=== PATIENT | female | born 1940 | race Caucasian/White ===

== ENCOUNTER 2016-05-07 16:19 | Emergency (ER) | payer MEDICARE, OTHER, MEDICAID ==
--- NOTE | 2016-05-07 17:05 | ER Document Report ---
ED Medical Screen (RME) - General Stated Complaint: SCRATCH ON ARM Notes: 75 yo female c/o dog scratch to left arm 2 days ago. + redness and pain. + skin tear to left forearm. mild erythema. no lymphangitis. no fever TRAVEL OUTSIDE OF THE [place] IN LAST 30 DAYS: No - Related Data Allergies/Adverse Reactions: No Known Allergies Allergy (Verified 05/07/16 17:02) Past Medical History - Past Medical History Cardiac Medical History: Reports: Hx Hypertension Denies: Hx Atrial Fibrillation, Hx Congestive Heart Failure, Hx Coronary Artery Disease, Hx Heart Attack, Hx Hypercholesterolemia, Hx Peripheral Vascular Disease, Hx Heart Murmur Pulmonary Medical History: Denies: Hx Asthma, Hx Bronchitis, Hx COPD, Hx Pneumonia, Hx Tuberculosis Neurological Medical History: Denies: Hx Cerebrovascular Accident - X 2 DUE TO NEUROLOGIST - , Hx Seizures Endocrine Medical History: Reports: Hx Hypothyroidism. Denies: Hx Graves' Disease, Hx Hyperthyroidism GI Medical History: Reports: Hx Gastroesophageal Reflux Disease. Denies: Hx Crohn's Disease, Hx Hiatal Hernia, Hx Irritable Bowel, Hx Liver Failure, Hx Ulcer Musculoskeltal Medical History: Denies Hx Arthritis, Denies Hx Multiple Sclerosis Psychiatric Medical History: Reports: Hx Anxiety, Hx Dementia, Hx Depression Denies: Hx Bipolar Disorder, Hx Schizophrenia Past Surgical History: Reports: Hx Cardiac Surgery - stents, Hx Cholecystectomy. Denies: Hx Appendectomy, Hx Bowel Surgery, Hx Section , Hx Colostomy, Hx Coronary Artery Bypass Graft, Hx Gastric Bypass Surgery, Hx Herniorrhaphy, Hx Hysterectomy, Hx Mastectomy, Hx Pacemaker, Hx Tonsillectomy, Hx Tubal Ligation - Immunizations Immunizations up to date: Yes Hx Diphtheria, Pertussis, Tetanus Vaccination: Yes Physical Exam - Vital signs Vitals: Temp Pulse Resp BP Pulse Ox 98.0 F 76 16 158/81 H 96 05/07/16 16:58 05/07/16 16:58 05/07/16 16:58 05/07/16 16:58 05/07/16 16:58 Course - Vital Signs Vital signs: Temp Pulse Resp BP Pulse Ox 98.0 F 76 16 158/81 H 96 05/07/16 16:58 05/07/16 16:58 05/07/16 16:58 05/07/16 16:58 05/07/16 16:58
[2016-05-07] MEDS ORDERED: AMOXICILLIN TR/POT CLAVULANATE 500-125 MG TAB PO ONE ×3 (19:34→19:42)
--- NOTE | 2016-05-07 19:53 | ER Document Report ---
ED Skin Rash/Insect Bite/Abscs - General Chief Complaint: Skin Problem Stated Complaint: SCRATCH ON ARM Notes: Patient sustained a skin tear of the left forearm caused by the patient's own dog who accidentally scratched her left arm 2 days ago. Patient is concerned about infection because redness developed around the wound today and it's had a little bit of drainage area she's not had any fever, however. TRAVEL OUTSIDE OF THE [place] IN LAST 30 DAYS: No - Related Data Allergies/Adverse Reactions: No Known Allergies Allergy (Verified 05/07/16 17:02) Past Medical History - Social History Smoking Status: Never Smoker Chew tobacco use (# tins/day): No Frequency of alcohol use: None Drug Abuse: None Family History: Reviewed & Not Pertinent, CVA, Hyperlipidemia, Hypertension, Malignancy, Thyroid Disfunction Patient has suicidal ideation: No Patient has homicidal ideation: No - Past Medical History Cardiac Medical History: Reports: Hx Coronary Artery Disease, Hx Hypertension Endocrine Medical History: Reports: Hx Hypothyroidism GI Medical History: Reports: Hx Gastroesophageal Reflux Disease Psychiatric Medical History: Reports: Hx Anxiety, Hx Dementia, Hx Depression Past Surgical History: Reports: Hx Cardiac Surgery - stents, Hx Cholecystectomy - Immunizations Immunizations up to date: Yes Hx Diphtheria, Pertussis, Tetanus Vaccination: Yes Hx Pneumococcal Vaccination: 03/30/11 Review of Systems - Review of Systems Notes: REVIEW OF SYSTEMS: CONSTITUTIONAL : Denies fever. EENT: Denies eye, ear, nose or mouth or throat pain or other symptoms. CARDIOVASCULAR: Denies chest pain. RESPIRATORY: Denies cough, chest congestion, or shortness of breath. GASTROINTESTINAL: Denies abdominal pain or nausea, vomiting, or diarrhea. GENITOURINARY: Denies difficulty or painful urinating, urinary frequency, blood in urine. MUSCULOSKELETAL: Denies back or neck pain. Denies joint pain or swelling. SKIN: See history of present illness. NEUROLOGICAL: Denies LOC or altered mental status. Patient seems forgetful and incorrectly answers questions and is corrected by her , suggesting altered mental status, such as dementia. Denies headache. Denies sensory loss or motor deficits. PSYCHIATRIC: Denies anxiety or stress. Denies depression. ALL OTHER SYSTEMS REVIEWED AND NEGATIVE. Physical Exam - Vital signs Vitals: Temp Pulse Resp BP Pulse Ox 98.0 F 76 16 158/81 H 96 05/07/16 16:58 05/07/16 16:58 05/07/16 16:58 05/07/16 16:58 05/07/16 16:58 Interpretation: Normal - Notes Notes: PHYSICAL EXAMINATION: GENERAL: Well-appearing, in no acute distress. Afebrile. HEAD: Atraumatic, normocephalic. NECK: Normal range of motion, supple. LUNGS: Breath sounds clear and equal bilaterally. HEART: Regular rate and rhythm without murmurs. ABDOMEN: Soft, nontender. No guarding or rebound. BACK: No tenderness throughout entire back. EXTREMITIES: Normal range of motion without pain. SKIN: Warm, dry, no rashes. Patient has a V-shaped superficial skin tear laceration of the distal one third of the left forearm. There is some very mild erythema around this wound. There is perhaps some moist drainage which we will attempt to culture. Course - Vital Signs Vital signs: Temp Pulse Resp BP Pulse Ox 98.0 F 76 16 158/81 H 96 05/07/16 16:58 05/07/16 16:58 05/07/16 16:58 05/07/16 16:58 05/07/16 16:58 Discharge - Discharge Clinical Impression: Dog scratch, Cellulitis of left arm Condition: Stable Disposition: HOME, SELF-CARE Additional Instructions: CELLULITIS: You have an infection of your skin and underlying soft tissues called cellulitis. This is due to bacteria, which can enter through any break in the skin, or even through an irritated hair follicle. Untreated, cellulitis will usually worsen. Antibiotics are required. Usually, warm packs or warm soaks, and elevation of the infected area are recommended. You should start getting better within 24 to 36 hours. Most infections respond quickly to the right medication. Follow-up care is important, however, to check for abscess (boil) formation, unsuspected foreign body, or resistant infection. If you develop fever, chills, or if the area of infection is becoming rapidly more swollen or painful, call the doctor at once. ANTIBIOTIC THERAPY: You have been given an antibiotic prescription. It's important that you take all the medication, unless instructed otherwise by your physician. Failure to complete the entire course can result in relapse of your condition. Common side effects of antibiotics include nausea, intestinal cramping, or diarrhea. Women may develop vaginal yeast infections, and babies can get yeast (thrush) in the mouth following the use of antibiotics. Contact your physician if you develop significant side effects from this medication. Allergy to this antibiotic can result in hives, wheezing, faintness, or itching. If symptoms of allergy occur, stop the medication and call the doctor. Augmentin Augmentin is a mixture of amoxicillin and clavulanate. Amoxicillin is a member of the penicillin family. It covers the germs likely to cause ear, bronchial, and urinary infections better than plain penicillin. The addition of clavulanate allows it to cover staph infections of the skin, as well as resistant cases of ear and sinus infections. Your physician has chosen Augmentin for you because of the special nature of your situation. Augmentin is best taken with meals. Nausea after taking the medication is rare, but can occur. Diarrhea can occur, particularly in small children. Vaginal yeast infections, and oral thrush in infants are also common. Contact your physician if these problems occur. Allergy to penicillins is common. If you have had an allergic reaction to any drug of the penicillin family, you should never take any other penicillin. Notify your doctor at once if you develop hives, shortness of breath, swelling, or faintness. Take the antibiotics as prescribed. Clean the dog scratch wound on your left forearm with gentle soap and water 3 times a day, then leave the wound open to the air to dry out or wear a dry Band- Aid. Do not apply any ointments or creams to the skin tear. FOLLOW-UP CARE: If you have been referred to a physician for follow-up care, call the physician s office for an appointment as you were instructed or within the next two days. If you experience worsening or a significant change in your symptoms, notify the physician immediately or return to the Emergency Department at any time for re-evaluation. Prescriptions: Amox Tr/Potassium Clavulanate [Augmentin 875-125 Tablet] 1 tab PO BID 7 Days
[2016-05-07 20:08] VITALS: BP 130/88
== END 2016-05-07 20:39 | disposition home or self-care (01) ==
LOC: ER 16:19
DX: S50.812A Abrasion of left forearm, initial encounter (principal); L03.114 Cellulitis of left upper limb; W54.8XXA Other contact with dog, initial encounter; I25.10 Atherosclerotic heart disease of native coronary artery without angina pectoris; I10 Essential (primary) hypertension; Z98.61 Coronary angioplasty status; S51.812A Laceration without foreign body of left forearm, initial encounter
CPT/HCPCS: 99282; 87070; 87205; 87077; 87186; A9270

== ENCOUNTER → 2016-05-21 | Outpatient (CLI) | payer MEDICARE, OTHER, MEDICAID | LOC: RAD 11:20 | PROVIDERS: ATTEND Specialist | DX: C50.411 Malignant neoplasm of upper-outer quadrant of right female breast (principal); R07.9 Chest pain, unspecified | CPT/HCPCS: 71020 ==

== ENCOUNTER 2016-07-15 01:28 | Emergency (ER) | payer MEDICARE, OTHER, MEDICAID ==
--- NOTE | 2016-07-15 01:42 | ER Document Report ---
ED General - General Chief Complaint: Nausea/Vomiting Stated Complaint: NAUSEA VOMITING DIFFICULTY BREATHING Notes: Patient is a 75-year-old female who presents with complaint of onset of difficulty breathing or nausea. She does have some right-sided abdominal pain. No chest pain. No fevers. No recent infections. She denies history of these symptoms in the past. She is a former smoker. No diarrhea. No other complaints at this time. TRAVEL OUTSIDE OF THE [place] IN LAST 30 DAYS: No - Related Data Allergies/Adverse Reactions: No Known Allergies Allergy (Verified 05/07/16 17:02) Past Medical History - Social History Smoking Status: Former Smoker Frequency of alcohol use: None Drug Abuse: None Family History: Reviewed & Not Pertinent, CVA, Hyperlipidemia, Hypertension, Malignancy, Thyroid Disfunction - Past Medical History Cardiac Medical History: Reports: Hx Coronary Artery Disease, Hx Hypertension Denies: Hx Atrial Fibrillation, Hx Congestive Heart Failure, Hx Heart Attack , Hx Hypercholesterolemia, Hx Peripheral Vascular Disease, Hx Heart Murmur Pulmonary Medical History: Denies: Hx Asthma, Hx Bronchitis, Hx COPD, Hx Pneumonia, Hx Tuberculosis Neurological Medical History: Denies: Hx Cerebrovascular Accident - X 2 DUE TO NEUROLOGIST - , Hx Seizures Endocrine Medical History: Reports: Hx Hypothyroidism. Denies: Hx Graves' Disease, Hx Hyperthyroidism Renal/ Medical History: Denies: Hx Peritoneal Dialysis GI Medical History: Reports: Hx Gastroesophageal Reflux Disease. Denies: Hx Crohn's Disease, Hx Hiatal Hernia, Hx Irritable Bowel, Hx Liver Failure, Hx Ulcer Musculoskeltal Medical History: Denies Hx Arthritis, Denies Hx Multiple Sclerosis Psychiatric Medical History: Reports: Hx Anxiety, Hx Dementia, Hx Depression Denies: Hx Bipolar Disorder, Hx Schizophrenia Past Surgical History: Reports: Hx Cardiac Surgery - stents, Hx Cholecystectomy. Denies: Hx Appendectomy, Hx Bowel Surgery, Hx Section , Hx Colostomy, Hx Coronary Artery Bypass Graft, Hx Gastric Bypass Surgery, Hx Herniorrhaphy, Hx Hysterectomy, Hx Mastectomy, Hx Pacemaker, Hx Tonsillectomy, Hx Tubal Ligation - Immunizations Immunizations up to date: Yes Hx Diphtheria, Pertussis, Tetanus Vaccination: Yes Hx Pneumococcal Vaccination: 03/30/11 Review of Systems - Review of Systems Notes: My Normal Review Basic REVIEW OF SYSTEMS: CONSTITUTIONAL : Denies fever, chills, or sweats. Denies recent illness. EENT: Denies eye, ear, throat, or mouth pain or symptoms. Denies nasal or sinus congestion. CARDIOVASCULAR: Denies chest pain. RESPIRATORY: Some difficulty breathing. GASTROINTESTINAL: Mild right-sided abdominal pain. Nausea. Denies constipation. Last BM: GENITOURINARY: Denies difficulty urinating, painful urination, burning, frequency, or blood in urine. FEMALE GENITOURINARY: Denies vaginal bleeding, abnormal or irregular periods. MUSCULOSKELETAL: Denies neck or back pain or joint pain or swelling. SKIN: Denies rash or skin lesions. NEUROLOGICAL: Denies altered mental status or loss of consciousness. Denies headache. Denies weakness or paralysis or loss of use of either side. Denies problems with gait or speech. Denies sensory or motor loss. ALL OTHER SYSTEMS REVIEWED AND NEGATIVE. Physical Exam - Vital signs Vitals: Temp 97.4 F 07/15/16 01:28 - Notes Notes: General Appearance: Well nourished, alert, cooperative, mild acute distress, no obvious discomfort. Vitals: reviewed, See vital signs table. Head: no swelling or tenderness to the head Eyes: PERRL, EOMI, Conjuctiva clear Mouth: No decreasd moisture Neck: Supple, no neck tenderness, No thyromegaly Lungs: No wheezing, No rales, No rhonci, No accessory muscle use, good air exchange bilaterally. Heart: Normal rate, Regular rythm, No murmur, no rub Abdomen: Normal BS, soft, No rigidity, mild right upper quadrant abdominal tenderness to palpation, No guarding, no rebound, no abdominal masses, no organomegaly Extremities: strength 5/5 in all extremities, good pulses in all extremities, no swelling or tenderness in the extremities, no edema. Skin: warm, dry, appropriate color, no rash Neuro: speech clear, oriented x 3, normal affect, responds appropriately to questions. Course - Re-evaluation Re-evalutation: 07/15/16 03:25 On reevaluation patient is feeling much improved. Her nausea is now gone. She does not feel short of breath. Her pain is decreased in her abdomen. She still has some reproducible pain on palpation of the abdomen is more mild and diffuse now. Being that she has a leukocytosis so will obtain a CT scan to make sure there's no evidence of acute concerning pathology of her abdomen. - Vital Signs Vital signs: Temp Pulse Resp BP Pulse Ox 97.4 F 17 150/72 H 100 07/15/16 01:28 07/15/16 06:01 07/15/16 06:01 07/15/16 06:01 - Laboratory Result Diagrams: 07/15/16 02:10 07/15/16 02:10 Laboratory results interpreted by me: 07/15/16 07/15/16 07/15/16 02:10 02:10 05:35 WBC 16.1 H RBC 3.39 L Hgb 11.3 L Hct 33.5 L MCV 99 H RDW 16.1 H Seg Neutrophils % 78.9 H Absolute Neutrophils 12.7 H Sodium 146.3 H BUN 21 H Est GFR ( Amer) 59 L Est GFR (Non-Af Amer) 49 L Glucose 128 H Alkaline Phosphatase 147 H Ur Leukocyte Esterase SMALL H - EKG Interpretation by Me Additional EKG results interpreted by me: 07/15/16 02:18 EKG is reviewed and interpreted by me. EKG shows normal sinus rhythm with rate of [address] segment elevation or depression. No ischemic T wave inversions. RI level, QRS duration, QTC intervals are within normal range. Old EKG for comparison is from 11/14/2015. - Transfer of Care Notes: 07/15/16 06:25 She continues look and feel well. She continues to be symptom free at this time. She does feel much improved after she had received a Zofran. At this time I feel she is safe to be discharged home. She never had any chest pain. Her EKG and cardiac enzymes are negative. She did have some abdominal pain but this is resolved. Her CT scan of her abdomen was negative. Urinalysis negative. She no longer feels nauseous. Her vital signs are normal. I feel she is safe to be discharged home. I strongly encourage her to return to ER immediately if she has recurrent pain, any fevers, any vomiting, or if she has any chest pain whatsoever. Patient agrees with plan and will be discharged home. Dictation of this chart was performed using voice recognition software; therefore, there may be some unintended grammatical errors. Discharge - Discharge Clinical Impression: Nausea Abdominal pain Qualifiers: Abdominal location: generalized Qualified Code(s): R10.84 - Generalized abdominal pain Condition: Good Disposition: HOME, SELF-CARE Additional Instructions: ABDOMINAL PAIN: There are many causes of abdominal pain. Pain can mean a serious problem requiring surgery (such as appendicitis). It can also be an innocent problem that goes away on its own (such as a viral infection). Often, time must pass to determine the cause of pain. The physician does not feel that hospitalization is necessary, at present. Things may change within the next 24 hours. Call the doctor or come back for re- examination if any problems occur, such as: (1) Pain that becomes more severe, steady, or becomes concentrated in one specific area. Also, pain that is more severe with movement or coughing. (2) Vomiting that persists or becomes more frequent. (3) Blood in the vomitus, urine, or bowel movements. Blood in the stool may have a tarry or black appearance. (4) Shaking chills or fever greater than 100 degrees F. (5) The abdomen becomes more distended or swollen. (6) Bowel movements cease. (7) Failure to improve as expected. NORMAL EXAM AND WORKUP: At this time, your examination and workup show no significant abnormality. No significant abnormal physical findings are noted. All laboratory, EKG, and imaging (x-ray, CT scans) studies that were ordered show no significant abnormality. Although your examination and all studies that were ordered showed no significant abnormal finding, there are no examinations and no studies that are 100% accurate. There is always the possibility that some abnormality could exist and not be detected with physical examination or within the limits and capabilities of laboratory and other studies. You should return or follow up as you were instructed on your visit today for further evaluation if your symptoms do not resolve. ANTINAUSEA MEDICATION: You have been given a medication to suppress nausea and vomiting. This type of medication can be given as a shot, pill, or suppository. It will usually last for many hours. Pills and shots usually last six to eight hours, suppositories last about 12 hours. For the typical illness, only one or two doses of the medication may be necessary. Mild lightheadedness may occur. This type of medicine can cause drowsiness. Do not drive or operate dangerous machinery while under its influence. Do not mix with alcohol. See your doctor at once if you have muscle spasms or tightness, or uncontrollable motions (particularly of the neck, mouth, or jaw). Persistent vomiting or severe lightheadedness should also be evaluated by the physician. FOLLOW-UP CARE: If you have been referred to a physician for follow-up care, call the physician s office for an appointment as you were instructed or within the next two days. If you experience worsening or a significant change in your symptoms, notify the physician immediately or return to the Emergency Department at any time for re-evaluation. FOLLOW-UP CARE: Please follow-up with your doctor in 1-2 days for close reevaluation. Please have a low threshold to return to ER if you have any chest pain, any difficulty breathing, recurrent vomiting, worsening abdominal pain. Also return if you have any fevers or any concerns that you are worsening in anyway. Prescriptions: Ondansetron [Zofran Odt 4 mg Tablet] 1 tab PO Q4H PRN #10 tab.rapdis PRN Reason: For Nausea/Vomiting Referrals: JANESSA ALVARADO MD [Primary Care Provider] - 07/17/16
[2016-07-15 02:26] LABS: ABSOLUTE BASOPHILS # (AUTO) 0.1 10^3/uL (0.0-0.2); ABSOLUTE EOSINOPHILS # (AUTO) 0.3 10^3/uL (0.0-0.6); ABSOLUTE LYMPHOCYTES (AUTO) 2.2 10^3/uL (0.5-4.7); ABSOLUTE MONOCYTES (AUTO) 0.8 10^3/uL (0.1-1.4); ABSOLUTE NEUT (AUTO) 12.7 10^3/uL (1.7-8.2); BASOPHILS % (AUTO) 0.6 % (0-2); HEMATOCRIT 33.5 % (36.0-47.0); HEMOGLOBIN 11.3 g/dL (12.0-15.5); HGB HCT DIFFERENCE 0.4; LYMPHOCYTES % (AUTO) 13.7 % (13-45); MEAN CORPUSCULAR HEMOGLOBIN 33.4 pg (27.0-33.4); MEAN CORPUSCULAR HGB CONC 33.8 g/dL (32.0-36.0); MEAN CORPUSCULAR VOLUME 99 fl (80-97); MONOCYTES % (AUTO) 4.8 % (3-13); RED BLOOD COUNT 3.39 10^6/uL (3.72-5.28); RED CELL DISTRIBUTION WIDTH 16.1 % (11.5-14.0); SEGMENTED NEUTROPHILS % (AUTO) 78.9 % (42-78); WHITE BLOOD COUNT 16.1 10^3/uL (4.0-10.5)
[2016-07-15 02:38] LABS: ALANINE AMINOTRANSFERASE 18 U/L (9-52); ALBUMIN 4.1 g/dL (3.5-5.0); ALKALINE PHOSPHATASE 147 U/L (38-126); ANION GAP 16 (5-19); ASPARTATE AMINO TRANSFERASE 22 U/L (14-36); BILIRUBIN,DIRECT 0.4 mg/dL (0.0-0.4); BILIRUBIN,TOTAL 0.7 mg/dL (0.2-1.3); BLOOD UREA NITROGEN 21 mg/dL (7-20); CALCIUM 9.1 mg/dL (8.4-10.2); CARBON DIOXIDE 23 mmol/L (22-30); CHLORIDE 107 mmol/L (98-107); CREATINE KINASE 72 U/L (30-135); GLUCOSE 128 mg/dL (75-110); LIPASE 240.1 U/L (23-300); POTASSIUM 4.8 mmol/L (3.6-5.0); SODIUM 146.3 mmol/L (137-145); TOTAL PROTEIN 6.9 g/dL (6.3-8.2)
[2016-07-15 02:50] LABS: CREATINE KINASE MB 0.36 ng/mL (<4.55)
[2016-07-15 02:58] LABS: TROPONIN I < 0.012 ng/mL
[2016-07-15] MEDS ORDERED: NORMAL SALINE 1000 ML 1,000 ML IV ONE (04:34)
[2016-07-15 06:08] LABS: APPEARANCE,URINE SLIGHTLY-CLOUDY; BILIRUBIN,URINE NEGATIVE (NEGATIVE); GLUCOSE, URINE NEGATIVE (NEGATIVE); KETONES,URINE NEGATIVE (NEGATIVE); LEUKOCYTE ESTERASE,URINE SMALL (NEGATIVE); NITRITE,URINE NEGATIVE (NEGATIVE); PROTEIN,URINE NEGATIVE (NEGATIVE); URINE SPECIFIC GRAVITY 1.038; UROBILINOGEN,URINE NEGATIVE mg/dL (<2.0)
[2016-07-15 06:32] VITALS: BP 151/84
--- NOTE | 2016-07-15 13:25 | EKG REPORT ---
SEVERITY:- NORMAL ECG - SINUS RHYTHM : Confirmed by: Angelina Marinelli MD 15-Jul-2016 13:24:56
== END 2016-07-15 06:40 | disposition home or self-care (01) ==
LOC: ER 01:28
DX: R11.2 Nausea with vomiting, unspecified (principal); R10.84 Generalized abdominal pain; R06.00 Dyspnea, unspecified; D72.829 Elevated white blood cell count, unspecified; I25.10 Atherosclerotic heart disease of native coronary artery without angina pectoris; I10 Essential (primary) hypertension; Z98.61 Coronary angioplasty status; Z90.49 Acquired absence of other specified parts of digestive tract; Z87.19 Personal history of other diseases of the digestive system; Z87.891 Personal history of nicotine dependence
CPT/HCPCS: 93005; 99284; 51701; 36415; 82553; 82550; 83690; 85025; 80053; 81001; 84484; 71010; 74177; 93010; J7030

== ENCOUNTER 2016-07-21 23:19 | Emergency (ER) | payer MEDICARE, OTHER, MEDICAID ==
--- NOTE | 2016-07-22 04:54 | ER Document Report ---
HPI - HPI Patient complains to provider of: anxiety Pain Level: 1 Context: Patient is a 76 year old female who presents to the ED with her son. He states that she lives in a assisted and he was called saying that they were sending her to the ED for abdominal pain. He states she was recently reevaluated here for abdominal pain and was diagnosed abdominal aorta dilation and is been due to follow up with community providers. At this time the son believes that her complaint tonight is due to anxiety. Review of her medical records from the facility showed that she received Klonopin and about 9:30 he was safe to call at about 10:15. At this time patient states that she has no complaints. Both the son and the patient refusing any further workup at this time and would like to be discharged home. She states that her abdominal pain is no more than her baseline and she is comfortable. She denies any thoughts of harming herself or others. She is content with her medications as prescribed for anxiety. States she follows with Dr. Baker for anxiety REVIEW OF SYSTEMS: CONSTITUTIONAL : Denies fever, chills, or sweats. Denies recent illness. EENT: Denies eye, ear, throat, or mouth pain or symptoms. Denies nasal or sinus congestion or discharge. Denies throat, tongue, or mouth swelling or difficulty swallowing. CARDIOVASCULAR: Denies chest pain. Denies palpitations or racing or irregular heart beat. Denies ankle edema. RESPIRATORY: Denies cough, cold, or chest congestion. Denies shortness of breath, difficulty breathing, or wheezing. GASTROINTESTINAL: Denies abdominal pain or distention. Denies nausea, vomiting , or diarrhea. Denies blood in vomitus, stools, or per rectum. Denies black, tarry stools. Denies constipation. GENITOURINARY: Denies difficulty urinating, painful urination, burning, frequency, blood in urine, or discharge. FEMALE GENITOURINARY: Denies vaginal bleeding, heavy or abnormal periods, irregular periods. Denies vaginal discharge or odor. MUSCULOSKELETAL: Denies any muscle spasms, difficulty walking, extremity pain SKIN: Denies rash, lesions or sores. HEMATOLOGIC : Denies easy bruising or bleeding. LYMPHATIC: Denies swollen, enlarged glands. NEUROLOGICAL: Denies confusion or altered mental status. Denies passing out or loss of consciousness. Denies dizziness or lightheadedness. Denies headache. Denies weakness or paralysis or loss of use of either side. Denies problems with gait or speech. Denies sensory loss, numbness, or tingling. Denies seizures. PSYCHIATRIC: Denies anxiety or stress. Denies depression, suicidal ideation, or homicidal ideation. ALL OTHER SYSTEMS REVIEWED AND NEGATIVE. Dictation was performed using [employer] voice recognition software - REPRODUCTIVE Reproductive: DENIES: : - DERM Skin Color: Normal, [place] Past Medical History - Social History Smoking Status: Never Smoker Family History: Reviewed & Not Pertinent, CVA, Hyperlipidemia, Hypertension, Malignancy, Thyroid Disfunction - Past Medical History Cardiac Medical History: Reports: Hx Coronary Artery Disease, Hx Hypertension Denies: Hx Atrial Fibrillation, Hx Congestive Heart Failure, Hx Heart Attack , Hx Hypercholesterolemia, Hx Peripheral Vascular Disease, Hx Heart Murmur Pulmonary Medical History: Denies: Hx Asthma, Hx Bronchitis, Hx COPD, Hx Pneumonia, Hx Tuberculosis Neurological Medical History: Denies: Hx Cerebrovascular Accident - X 2 DUE TO NEUROLOGIST - , Hx Seizures Endocrine Medical History: Reports: Hx Hypothyroidism. Denies: Hx Graves' Disease, Hx Hyperthyroidism Renal/ Medical History: Denies: Hx Peritoneal Dialysis GI Medical History: Reports: Hx Gastroesophageal Reflux Disease. Denies: Hx Crohn's Disease, Hx Hiatal Hernia, Hx Irritable Bowel, Hx Liver Failure, Hx Ulcer Musculoskeltal Medical History: Denies Hx Arthritis, Denies Hx Multiple Sclerosis Psychiatric Medical History: Reports: Hx Anxiety, Hx Dementia, Hx Depression Denies: Hx Bipolar Disorder, Hx Schizophrenia Past Surgical History: Reports: Hx Cardiac Surgery - stents, Hx Cholecystectomy. Denies: Hx Appendectomy, Hx Bowel Surgery, Hx Section , Hx Colostomy, Hx Coronary Artery Bypass Graft, Hx Gastric Bypass Surgery, Hx Herniorrhaphy, Hx Hysterectomy, Hx Mastectomy, Hx Pacemaker, Hx Tonsillectomy, Hx Tubal Ligation - Immunizations Immunizations up to date: Yes Hx Diphtheria, Pertussis, Tetanus Vaccination: Yes Hx Pneumococcal Vaccination: 03/30/11 Vertical Provider Document - CONSTITUTIONAL Agree With Documented VS: Yes Exam Limitations: No Limitations General Appearance: WD/WN, No Apparent Distress Notes: PHYSICAL EXAM GENERAL: Alert, interacts well. HEAD: Normocephalic, atraumatic. EYES: Pupils equal, round, and reactive to light. Extraocular movements intact. ENT: Oral mucosa moist, tongue midline. NECK: Full range of motion. Supple. Trachea midline. LUNGS: Clear to auscultation bilaterally, no wheezes, rales, or rhonchi. No respiratory distress. HEART: Regular rate and rhythm. No murmurs, gallops, or rubs. ABDOMEN: Soft, nondistended, nontender. No guarding, rebound, or rigidity.. Bowel sounds present in all 4 quadrants. EXTREMITIES: Moves all 4 extremities spontaneously. No edema, radial and dorsalis pedis pulses 2/4 bilaterally. No cyanosis. NEUROLOGICAL: Alert and oriented x4. Normal speech. PSYCH: Normal affect, normal mood. SKIN: Warm, dry, normal turgor. No rashes or lesions noted. - INFECTION CONTROL TRAVEL OUTSIDE OF THE [place] IN LAST 30 DAYS: No - RESPIRATORY O2 Sat by Pulse Oximetry: 96 Course - Re-evaluation Re-evalutation: 07/22/16 08:21 Patient is a 76-year-old female who is hemodynamically stable, no distress and afebrile. Patient's history and physical exam seemed to be consistent with her history of anxiety attacks. At this time patient feels comfortable and is requesting to go home and is denying any further workup. Given patient's benign physical exam, I do not feel that any additional lab or imaging studies are required at this time. Stable for discharge home with instruction to follow up with primary care and neurology for anxiety. - Vital Signs Vital signs: Temp Pulse Resp BP Pulse Ox 97.4 F 73 19 159/88 H 96 07/21/16 23:40 07/21/16 23:40 07/21/16 23:40 07/21/16 23:40 07/21/16 23:40 Discharge - Discharge Clinical Impression: Anxiety Condition: Good Disposition: HOME, SELF-CARE Additional Instructions: Anxiety The physician feels that some of your health problems are being caused by anxiety. Anxiety affects your health in many ways. Anxiety alone can cause palpitations, sweats, chest pains, abdominal pains, shortness of breath, and headaches. It contributes to ulcer disease, high blood pressure, irritable bowel syndrome, and has been shown to cause flare-ups of many other diseases. Anxiety is not a simple disorder to treat. If the anxiety is due to recent life stresses, you may simply need time to "work through" the changes. If the anxiety is due to an underlying unhappiness with yourself or due to psychiatric disturbance, professional help will be needed. Your physician can refer you for further help if needed. Anti-anxiety medication is occasionally given if the stress is acute or if you are having trouble sleeping. Chronic or frequent use of these medications is not a good idea because the body becomes reliant on it, preventing you from dealing with life's normal stresses. Forms: Elevated Blood Pressure Referrals: JANESSA ALVARADO MD [Primary Care Provider] - Follow up as needed BAUTISTA BAKER MD [ACTIVE STAFF] - Follow up as needed
[2016-07-22 05:07] VITALS: BP 159/73
== END 2016-07-22 05:00 | disposition home or self-care (01) ==
LOC: ER 23:19
DX: F41.9 Anxiety disorder, unspecified (principal); I25.10 Atherosclerotic heart disease of native coronary artery without angina pectoris; I10 Essential (primary) hypertension; E03.9 Hypothyroidism, unspecified; K21.9 Gastro-esophageal reflux disease without esophagitis; Z90.49 Acquired absence of other specified parts of digestive tract
CPT/HCPCS: 99283

== ENCOUNTER 2017-01-07 09:06 | Emergency (ER) | payer MEDICARE, OTHER, MEDICAID ==
--- NOTE | 2017-01-07 10:02 | RADIOLOGY REPORT (SQ) ---
EXAM DESCRIPTION: CT HEAD WITHOUT COMPLETED DATE/TIME: 01/07/2017 9:50 am REASON FOR STUDY: fall COMPARISON: 07/15/2015 TECHNIQUE: Axial images acquired through the brain without intravenous contrast. Images reviewed wi th bone, brain and subdural windows. Images stored on PACS. All CT scanners at this facility use dose modulation, iterative reconstruction, and/or weight based d osing when appropriate to reduce radiation dose to as low as reasonably achievable (ALARA). [facility]: Dose Right [facility]: CareDose [facility]: Dose Right [facility]: Teradose 4D [facility]: Smart [employer] RADIATION DOSE: Up-to-date CT equipment and radiation dose reduction techniques were employed. CTDIv ol: 64.6 mGy. DLP: 1163 mGy-cm.mGy. LIMITATIONS: None. FINDINGS: VENTRICLES: Prominent. CEREBRUM: No masses. No hemorrhage. No midline shift. Areas of low density in the white matter mos t likely due to chronic micro-vascular ischemic change. No evidence for acute infarction. CEREBELLUM: No masses. No hemorrhage. No alteration of density. No evidence for acute infarction. EXTRAAXIAL SPACES: Age-related involutional change. No fluid collections. No masses. ORBITS AND GLOBE: No intra- or extraconal masses. Normal contour of globe without masses. CALVARIUM: No fracture. PARANASAL SINUSES: No fluid or mucosal thickening. SOFT TISSUES: Right supraorbital hematoma. OTHER: Nondisplaced nasal fractures. IMPRESSION: 1. No acute findings in the brain. 2. Nondisplaced nasal fractures. EVIDENCE OF ACUTE STROKE: NO. TECHNICAL DOCUMENTATION: JOB ID: [id number] Quality ID # [id number]: Final reports with documentation of one or more dose reduction techniques (e.g., Au tomated exposure control, adjustment of the mA and/or kV according to patient size, use of iterative reconstruction technique) 2010 [employer]- All Rights Reserved
[2017-01-07] MEDS ORDERED: ONDANSETRON 4 MG TAB.RAPDIS PO ONE (10:12)
--- NOTE | 2017-01-07 10:34 | RADIOLOGY REPORT (SQ) ---
EXAM DESCRIPTION: CT CERVICAL SPINE WITHOUT COMPLETED DATE/TIME: 01/07/2017 9:50 am REASON FOR STUDY: fall COMPARISON: 12/03/2010 TECHNIQUE: Axial images acquired through the cervical spine without intravenous contrast. Images re viewed with lung, soft tissue and bone windows. Reconstructed coronal and sagittal MPR images review ed. Images stored on PACS. All CT scanners at this facility use dose modulation, iterative reconstruction, and/or weight based d osing when appropriate to reduce radiation dose to as low as reasonably achievable (ALARA). [facility]: Dose Right [facility]: CareDose [facility]: Dose Right [facility]: Teradose 4D [facility]: Smart [employer] RADIATION DOSE: Up-to-date CT equipment and radiation dose reduction techniques were employed. CTDIv ol: 15.8 mGy. DLP: 352 mGy-cm. mGy. LIMITATIONS: None. FINDINGS: ALIGNMENT: Anatomic. MINERALIZATION: Normal. VERTEBRAL BODIES: No fractures or dislocation. DISCS: Multilevel disc space narrowing with osteophytes. FACETS, LATERAL MASSES, POSTERIOR ELEMENTS: Facet arthropathy. No fractures. No dislocation. No ac donald findings. HARDWARE: None in the spine. VISUALIZED RIBS: No fractures. LUNG APICES AND SOFT TISSUES: No significant or acute findings. OTHER: No other significant finding. IMPRESSION: CHRONIC DEGENERATIVE CHANGES. NO ACUTE FINDINGS. TECHNICAL DOCUMENTATION: JOB ID: [id number] Quality ID # [id number]: Final reports with documentation of one or more dose reduction techniques (e.g., Au tomated exposure control, adjustment of the mA and/or kV according to patient size, use of iterative reconstruction technique) 2010 [employer]- All Rights Reserved
--- NOTE | 2017-01-07 11:13 | RADIOLOGY REPORT (SQ) ---
EXAM DESCRIPTION: ANKLE BILATERAL AP/LAT COMPLETED DATE/TIME: 01/07/2017 10:44 am REASON FOR STUDY: fall COMPARISON: None. NUMBER OF VIEWS: Three views. TECHNIQUE: AP, lateral, and oblique radiographic images acquired of the left ankle. LIMITATIONS: None. FINDINGS: MINERALIZATION: Osteopenia. BONES: No acute fracture or dislocation. No worrisome bone lesions. JOINTS: No effusions. SOFT TISSUES: No soft tissue swelling. No foreign body. OTHER: No other significant finding. IMPRESSION: NO RADIOGRAPHIC EVIDENCE OF ACUTE INJURY OF THE LEFT ANKLE. TECHNICAL DOCUMENTATION: JOB ID: [id number] [facility]- All Rights Reserved
--- NOTE | 2017-01-07 11:17 | RADIOLOGY REPORT (SQ) ---
EXAM DESCRIPTION: HIP BILATERAL COMPLETED DATE/TIME: 01/07/2017 10:44 am REASON FOR STUDY: fall COMPARISON: 04/13/2012 NUMBER OF VIEWS: Two views. TECHNIQUE: AP pelvis and additional frog-leg view of the right and left hip. LIMITATIONS: None. FINDINGS: MINERALIZATION: Osteopenia. RIGHT HIP: No fracture or dislocation. No worrisome bone lesions. LEFT HIP: Internal fixation from a prior fracture. No acute abnormality. PUBIS AND ISCHIUM: No fracture. PELVIS: No fracture. SACRUM: No fracture or dislocation. No worrisome bone lesions. LOWER LUMBAR SPINE: No fracture or dislocation. No worrisome bone lesions. No significant disc disea se. SOFT TISSUES: No findings. OTHER: No other significant finding. IMPRESSION: NEGATIVE STUDY OF THE RIGHT AND LEFT HIPS AND PELVIS. NO RADIOGRAPHIC EVIDENCE OF ACUTE INJURY. TECHNICAL DOCUMENTATION: JOB ID: [id number] [employer]- All Rights Reserved
--- NOTE | 2017-01-07 11:20 | RADIOLOGY REPORT (SQ) ---
EXAM DESCRIPTION: KNEE BILATERAL 1-2 VIEWS COMPLETED DATE/TIME: 01/07/2017 10:44 am REASON FOR STUDY: fall COMPARISON: None. NUMBER OF VIEWS: Two views. TECHNIQUE: AP and lateral bilateral knees. LIMITATIONS: None. FINDINGS: MINERALIZATION: Osteopenia. RIGHT KNEE BONES: No acute fracture. No worrisome bone lesions. MEDIAL COMPARTMENT: No significant osteophytes. Mild joint space narrowing No chondrocalcinosis. LATERAL COMPARTMENT: No significant osteophytes. No joint space narrowing. No chondrocalcinosis. LEFT KNEE BONES: No acute fracture. No worrisome bone lesions. A medullary raghav is present femur. MEDIAL COMPARTMENT: No significant osteophytes. No joint space narrowing. No chondrocalcinosis. LATERAL COMPARTMENT: No significant osteophytes. No joint space narrowing. No chondrocalcinosis. IMPRESSION: No acute abnormalities. Mild degenerative joint changes medial compartment of right yanira emery TECHNICAL DOCUMENTATION: JOB ID: [id number] [employer]- All Rights Reserved
--- NOTE | 2017-01-07 12:44 | ER Document Report ---
ED General - General Chief Complaint: Fall Injury Stated Complaint: FALL NECK PAIN Time Seen by Provider: 01/07/17 09:54 TRAVEL OUTSIDE OF THE [place] IN LAST 30 DAYS: No - HPI Patient complains to provider of: Fall Notes: Patient coming in for an unwitnessed fall. Patient was found to ground with a nosebleed obvious trauma to her head. Patient walking when she tripped and fall. Patient remembers falling patient remembers hitting the ground. Denies any loss of consciousness. Patient denies being on any blood thinning medications. Patient otherwise only complains of facial pain especially to the right orbit which is obviously contused. Patient initially did have a nosebleed upon EMS arrival however bleeding since that time stop. Patient does admit to swallowing a lot of blood. Denies any chest pain abdominal pain fever chills nausea vomiting prior to or after during a fall. Patient is alert and oriented upon my visit - Related Data Allergies/Adverse Reactions: No Known Allergies Allergy (Verified 05/07/16 17:02) Past Medical History - Social History Smoking Status: Unknown if Ever Smoked Chew tobacco use (# tins/day): No Frequency of alcohol use: None Drug Abuse: None Family History: Reviewed & Not Pertinent, CVA, Hyperlipidemia, Hypertension, Malignancy, Thyroid Disfunction - Past Medical History Cardiac Medical History: Reports: Hx Coronary Artery Disease, Hx Hypertension Denies: Hx Atrial Fibrillation, Hx Congestive Heart Failure, Hx Heart Attack , Hx Hypercholesterolemia, Hx Peripheral Vascular Disease, Hx Heart Murmur Pulmonary Medical History: Denies: Hx Asthma, Hx Bronchitis, Hx COPD, Hx Pneumonia, Hx Tuberculosis Neurological Medical History: Denies: Hx Cerebrovascular Accident - X 2 DUE TO NEUROLOGIST - , Hx Seizures Endocrine Medical History: Reports: Hx Hypothyroidism. Denies: Hx Graves' Disease, Hx Hyperthyroidism Renal/ Medical History: Denies: Hx Peritoneal Dialysis GI Medical History: Reports: Hx Gastroesophageal Reflux Disease. Denies: Hx Crohn's Disease, Hx Hiatal Hernia, Hx Irritable Bowel, Hx Liver Failure, Hx Pancreatitis, Hx Ulcer Musculoskeltal Medical History: Denies Hx Arthritis, Denies Hx Multiple Sclerosis Psychiatric Medical History: Reports: Hx Anxiety, Hx Dementia, Hx Depression Denies: Hx Bipolar Disorder, Hx Schizophrenia Past Surgical History: Reports: Hx Cardiac Surgery - stents, Hx Cholecystectomy. Denies: Hx Appendectomy, Hx Bowel Surgery, Hx Section , Hx Colostomy, Hx Coronary Artery Bypass Graft, Hx Gastric Bypass Surgery, Hx Herniorrhaphy, Hx Hysterectomy, Hx Mastectomy, Hx Pacemaker, Hx Tonsillectomy, Hx Tubal Ligation - Immunizations Immunizations up to date: Yes Hx Diphtheria, Pertussis, Tetanus Vaccination: Yes Hx Pneumococcal Vaccination: 03/30/11 Review of Systems - Review of Systems Constitutional: Other - Head pain facial pain EENT: No symptoms reported Cardiovascular: No symptoms reported Respiratory: No symptoms reported Gastrointestinal: No symptoms reported Genitourinary: No symptoms reported Female Genitourinary: No symptoms reported Musculoskeletal: No symptoms reported Skin: No symptoms reported Hematologic/Lymphatic: No symptoms reported Neurological/Psychological: No symptoms reported Physical Exam - Vital signs Vitals: Temp Pulse BP Pulse Ox 97.7 F 89 205/88 H 98 01/07/17 09:24 01/07/17 09:24 01/07/17 09:24 01/07/17 09:24 Interpretation: Normal - General General appearance: Appears well, Alert - HEENT Head: Normocephalic, Other - Bruising to the right orbit Eyes: Normal Conjunctiva: Normal Cornea: Normal Pupils: PERRL Nasal: Other - Bruising to the bridge of the nose. There is slight deviation of the septum. No signs of active bleeding either nare at this time Pharynx: Normal Neck: No: Normal - C-collar in place - Respiratory Respiratory status: No respiratory distress Chest status: Nontender Breath sounds: Normal Chest palpation: Normal - Cardiovascular Rhythm: Regular Heart sounds: Normal auscultation Murmur: No - Abdominal Inspection: Normal Distension: No distension Bowel sounds: Normal Tenderness: Nontender Organomegaly: No organomegaly - Back Back: Normal, Nontender - Extremities General upper extremity: Normal inspection, Nontender, Normal color, Normal ROM , Normal temperature General lower extremity: Normal inspection, Nontender, Normal color, Normal ROM , Normal temperature, Normal weight bearing. No: Beltran's sign - Neurological Neuro grossly intact: Yes Cognition: Normal Orientation: AAOx4 [place] Coma Scale Eye Opening: Spontaneous [place] Coma Scale Verbal: Oriented [place] Coma Scale Motor: Obeys Commands Shahida Coma Scale Total: 15 Speech: Normal Motor strength normal: LUE, RUE, LLE, RLE Sensory: Normal - Psychological Associated symptoms: Normal affect, Normal mood - Skin Skin Temperature: Warm Skin Moisture: Dry Skin Color: Normal Course - Re-evaluation Re-evalutation: 01/07/17 16:53 Radiographical studies are negative for any signs of acute pathology except for nasal bone fracture. Patient did vomit some blood more likely from her nosebleed do not believe patient is undergoing active upper GI bleeding at this time. Patient was given Zofran was able tolerate p.o. here. Will discharge patient home. - Vital Signs Vital signs: Temp Pulse Resp BP Pulse Ox 98.7 F 89 13 168/97 H 97 01/07/17 12:43 01/07/17 09:24 01/07/17 12:42 01/07/17 12:43 01/07/17 12:43 Discharge - Discharge Clinical Impression: Nosebleed Nasal fracture Qualifiers: Encounter type: initial encounter Fracture type: open Qualified Code(s): S02.2XXB - Fracture of nasal bones, initial encounter for open fracture Facial contusion Qualifiers: Encounter type: initial encounter Qualified Code(s): S00.83XA - Contusion of other part of head, initial encounter Condition: Good Disposition: HOME, SELF-CARE Instructions: Contusion ([facility]), Fracture of the Nose ([facility]), Nosebleed Instructions ([facility]) Additional Instructions: Your CAT scan today only shows to break her nose. Rest of your x-rays are negative for acute fracture. Please make sure he follow-up with your primary care physician. sHe may experience slight nausea vomiting a day as he did swallow some blood with your nosebleed. He may take nausea medication as prescribed. Tylenol and Motrin for pain control. Prescriptions: Ondansetron [Zofran Odt 4 mg Tablet] 1 - 2 tab PO Q4H PRN #15 tab.rapdis PRN Reason: For Nausea/Vomiting Referrals: JANESSA ALVARADO MD [Primary Care Provider] - Follow up as needed
[2017-01-07 12:56] VITALS: BP 168/97
== END 2017-01-07 12:56 | disposition home or self-care (01) ==
LOC: ER 09:06
DX: S02.2XXB Fracture of nasal bones, initial encounter for open fracture (principal); S00.83XA Contusion of other part of head, initial encounter; R04.0 Epistaxis; M54.2 Cervicalgia; W19.XXXA Unspecified fall, initial encounter
CPT/HCPCS: 99284; 73522; 73560; 73600; 70450; 72125; A9270; S0119

== ENCOUNTER 2017-02-20 10:03 | Emergency (ER) | payer MEDICARE, OTHER, MEDICAID ==
[2017-02-20 10:49] LABS: ABSOLUTE EOSINOPHILS # (AUTO) 0.2 10^3/uL (0.0-0.6); ABSOLUTE LYMPHOCYTES (AUTO) 1.4 10^3/uL (0.5-4.7); ABSOLUTE MONOCYTES (AUTO) 0.5 10^3/uL (0.1-1.4); ABSOLUTE NEUT (AUTO) 3.7 10^3/uL (1.7-8.2); BASOPHILS % (AUTO) 0.8 % (0-2); EOSINOPHILS % (AUTO) 3.1 % (0-6); HEMATOCRIT 34.4 % (36.0-47.0); HEMOGLOBIN 11.7 g/dL (12.0-15.5); HGB HCT DIFFERENCE 0.7; LYMPHOCYTES % (AUTO) 24.4 % (13-45); MEAN CORPUSCULAR HEMOGLOBIN 29.2 pg (27.0-33.4); MEAN CORPUSCULAR HGB CONC 33.9 g/dL (32.0-36.0); MEAN CORPUSCULAR VOLUME 86 fl (80-97); MONOCYTES % (AUTO) 8.5 % (3-13); RED CELL DISTRIBUTION WIDTH 13.8 % (11.5-14.0); SEGMENTED NEUTROPHILS % (AUTO) 63.2 % (42-78); WHITE BLOOD COUNT 5.8 10^3/uL (4.0-10.5)
[2017-02-20 11:08] LABS: ANION GAP 12 (5-19); BLOOD UREA NITROGEN 21 mg/dL (7-20); CALCIUM 8.9 mg/dL (8.4-10.2); CARBON DIOXIDE 25 mmol/L (22-30); CHLORIDE 99 mmol/L (98-107); GLUCOSE 88 mg/dL (75-110); POTASSIUM 4.5 mmol/L (3.6-5.0); SODIUM 136.2 mmol/L (137-145)
--- NOTE | 2017-02-20 11:08 | RADIOLOGY REPORT (SQ) ---
EXAM DESCRIPTION: CHEST PA/LAT COMPLETED DATE/TIME: 02/20/2017 10:55 am REASON FOR STUDY: cough COMPARISON: 01/31/2017 EXAM PARAMETERS: NUMBER OF VIEWS: two views TECHNIQUE: Digital Frontal and Lateral radiographic views of the chest acquired. RADIATION DOSE: NA LIMITATIONS: none FINDINGS: LUNGS AND PLEURA: Interstitial markings are prominent but unchanged. No consolidations or pleural effusions. MEDIASTINUM AND HILAR STRUCTURES: No masses or contour abnormalities. HEART AND VASCULAR STRUCTURES: Heart normal size. No evidence for failure. BONES: Stable in appearance. HARDWARE: None in the chest. OTHER: No other significant finding. IMPRESSION: No acute findings in the chest. TECHNICAL DOCUMENTATION: JOB ID: [id number] [employer]- All Rights Reserved
[2017-02-20 11:36] LABS: APPEARANCE,URINE CLEAR; BILIRUBIN,URINE NEGATIVE (NEGATIVE); GLUCOSE, URINE NEGATIVE (NEGATIVE); KETONES,URINE TRACE mg/dL (NEGATIVE); LEUKOCYTE ESTERASE,URINE NEGATIVE (NEGATIVE); NITRITE,URINE NEGATIVE (NEGATIVE); PROTEIN,URINE 100 mg/dL (NEGATIVE); URINE SPECIFIC GRAVITY 1.025; UROBILINOGEN,URINE NEGATIVE mg/dL (<2.0)
--- NOTE | 2017-02-20 11:52 | ER Document Report ---
ED General - General Chief Complaint: Flu Symptoms Stated Complaint: FLU LIKE SYMPTOMS Time Seen by Provider: 02/20/17 10:08 TRAVEL OUTSIDE OF THE [place] IN LAST 30 DAYS: No - HPI Patient complains to provider of: Flulike symptoms cough Notes: Patient from local longterm facility with a history of dementia coming in for flulike symptoms and cough. Apparently patient's symptoms have been ongoing for 1 week. Most of the HPI is obtained from EMS otherwise vital signs look to be normal upon evaluation patient is alert however confused. Will answer simple questions. Patient does have a audible wet cough patient looks to be in no obvious distress. No other information can be obtained at this time. - Related Data Allergies/Adverse Reactions: No Known Allergies Allergy (Verified 05/07/16 17:02) Past Medical History - Social History Smoking Status: Unknown if Ever Smoked Family History: Reviewed & Not Pertinent, CVA, Hyperlipidemia, Hypertension, Malignancy, Thyroid Disfunction Patient has suicidal ideation: No Patient has homicidal ideation: No - Past Medical History Cardiac Medical History: Reports: Hx Coronary Artery Disease, Hx Hypertension Denies: Hx Atrial Fibrillation, Hx Congestive Heart Failure, Hx Heart Attack , Hx Hypercholesterolemia, Hx Peripheral Vascular Disease, Hx Heart Murmur Pulmonary Medical History: Denies: Hx Asthma, Hx Bronchitis, Hx COPD, Hx Pneumonia, Hx Tuberculosis Neurological Medical History: Denies: Hx Cerebrovascular Accident - X 2 DUE TO NEUROLOGIST - , Hx Seizures Endocrine Medical History: Reports: Hx Hypothyroidism. Denies: Hx Graves' Disease, Hx Hyperthyroidism Renal/ Medical History: Denies: Hx Peritoneal Dialysis GI Medical History: Reports: Hx Gastroesophageal Reflux Disease. Denies: Hx Crohn's Disease, Hx Hiatal Hernia, Hx Irritable Bowel, Hx Liver Failure, Hx Pancreatitis, Hx Ulcer Musculoskeltal Medical History: Denies Hx Arthritis, Denies Hx Multiple Sclerosis Psychiatric Medical History: Reports: Hx Anxiety, Hx Dementia, Hx Depression Denies: Hx Bipolar Disorder, Hx Schizophrenia Past Surgical History: Reports: Hx Cardiac Surgery - stents, Hx Cholecystectomy. Denies: Hx Appendectomy, Hx Bowel Surgery, Hx Section , Hx Colostomy, Hx Coronary Artery Bypass Graft, Hx Gastric Bypass Surgery, Hx Herniorrhaphy, Hx Hysterectomy, Hx Mastectomy, Hx Pacemaker, Hx Tonsillectomy, Hx Tubal Ligation - Immunizations Immunizations up to date: Yes Hx Diphtheria, Pertussis, Tetanus Vaccination: Yes Hx Pneumococcal Vaccination: 03/30/11 Review of Systems - Review of Systems Notes: History of dementia -: Yes ROS unobtainable due to patient's medical condition Physical Exam - Vital signs Vitals: Temp Pulse Resp BP Pulse Ox 97.9 F 76 16 185/90 H 98 02/20/17 10:11 02/20/17 10:11 02/20/17 10:11 02/20/17 10:11 02/20/17 10:11 Interpretation: Normal - General General appearance: Appears well, Alert - HEENT Head: Normocephalic, Atraumatic Eyes: Normal Pupils: PERRL - Respiratory Respiratory status: No respiratory distress Chest status: Nontender Breath sounds: Normal Chest palpation: Normal - Cardiovascular Rhythm: Regular Heart sounds: Normal auscultation Murmur: No - Abdominal Inspection: Normal Distension: No distension Bowel sounds: Normal Tenderness: Nontender Organomegaly: No organomegaly - Back Back: Normal, Nontender - Extremities General upper extremity: Normal inspection, Nontender, Normal ROM General lower extremity: Normal inspection, Nontender, Normal ROM - Neurological Neuro grossly intact: Yes Cognition: Confused [place] Coma Scale Eye Opening: Spontaneous [place] Coma Scale Verbal: Confused [place] Coma Scale Motor: Obeys Commands [place] Coma Scale Total: 14 - Psychological Associated symptoms: Normal affect, Normal mood - Skin Skin Temperature: Warm Skin Moisture: Dry Skin Color: Normal Course - Re-evaluation Re-evalutation: 02/20/17 15:22 Patient's laboratory studies look to be at baseline. No concerning pathology. Urinalysis is negative for any signs of infection chest x-ray negative for infection influenza negative. Family members at bedside explained to family members more likely cough due to possible underlying viral etiology. Patient will be given Tessalon Perles for cough and discharge back to longterm. Later in the shift I was contacted by a worker at the longterm concerned that we send the patient back. This worker identifies that she was with the patient this morning that the patient was delirious and having difficulty breathing. I explained to this workup that her workup here was negative patient otherwise was stable here during her entire ER visit I did discuss with family members who agreed with our disposition. I worker stated that she was recently diagnosed with pneumonia here at this hospital that should have access to these records explained to the worker that I had no such documentation. After this exchange the worker did hang up the phone - Vital Signs Vital signs: Temp Pulse Resp BP Pulse Ox 98.2 F 70 18 172/76 H 97 02/20/17 12:59 02/20/17 12:24 02/20/17 12:59 02/20/17 12:24 02/20/17 12:59 - Laboratory Result Diagrams: 02/20/17 10:38 02/20/17 10:38 Laboratory results interpreted by me: 02/20/17 02/20/17 02/20/17 10:38 10:38 11:08 Hgb 11.7 L Hct 34.4 L Sodium 136.2 L BUN 21 H Est GFR (Non-Af Amer) 54 L Urine Protein 100 H Urine Ketones TRACE H Urine Blood SMALL H Discharge - Discharge Clinical Impression: Cough, Viral syndrome Condition: Good Disposition: HOME, SELF-CARE Instructions: Cough Suppressant & Expectorant Medications, Viral Syndrome ([facility]) Additional Instructions: Workup today shows negative influenza testing no white count is negative chest x -ray no signs of any infection urine more likely patient's cough is due to a viral etiology or environmental. sHe can try Tessalon Perles prescribed patient should follow-up with her PCP in 3-5 days Prescriptions: Benzonatate [Tessalon Perle 100 mg Capsule] 100 mg PO Q8HP PRN #40 cap PRN Reason: Forms: Return to Work Referrals: JANESSA ALVARADO MD [Primary Care Provider] - Follow up as needed
[2017-02-20 12:25] VITALS: BP 172/76
== END 2017-02-20 13:15 | disposition home or self-care (01) ==
LOC: ER 10:03
DX: R05 Cough (principal); B34.9 Viral infection, unspecified
CPT/HCPCS: 36415; 71020; 80048; 81001; 85025; 87804; 99284

== ENCOUNTER 2017-06-17 23:29 | Emergency (ER) | payer MEDICARE, OTHER, MEDICAID ==
[2017-06-17] MEDS ORDERED: ASPIRIN 81 MG TABLET, CHEWABLE PO ONE (23:42)
[2017-06-17 23:53] LABS: ABSOLUTE BASOPHILS # (AUTO) 0.1 10^3/uL (0.0-0.2); ABSOLUTE EOSINOPHILS # (AUTO) 0.1 10^3/uL (0.0-0.6); ABSOLUTE LYMPHOCYTES (AUTO) 1.5 10^3/uL (0.5-4.7); ABSOLUTE MONOCYTES (AUTO) 0.6 10^3/uL (0.1-1.4); ABSOLUTE NEUT (AUTO) 5.5 10^3/uL (1.7-8.2); BASOPHILS % (AUTO) 0.7 % (0-2); EOSINOPHILS % (AUTO) 1.9 % (0-6); HEMATOCRIT 37.1 % (36.0-47.0); HEMOGLOBIN 12.5 g/dL (12.0-15.5); MEAN CORPUSCULAR HEMOGLOBIN 28.6 pg (27.0-33.4); MEAN CORPUSCULAR HGB CONC 33.6 g/dL (32.0-36.0); MEAN CORPUSCULAR VOLUME 85 fl (80-97); MONOCYTES % (AUTO) 7.3 % (3-13); PLATELET COUNT 372 10^3/uL (150-450); RED BLOOD COUNT 4.36 10^6/uL (3.72-5.28); RED CELL DISTRIBUTION WIDTH 14.1 % (11.5-14.0); SEGMENTED NEUTROPHILS % (AUTO) 71.1 % (42-78); TOTAL CELLS COUNTED % (AUTO) 100 %; WHITE BLOOD COUNT 7.7 10^3/uL (4.0-10.5)
[2017-06-18] MEDS ORDERED: ONDANSETRON 4 MG TAB.RAPDIS PO ONE (00:07)
[2017-06-18 00:08] LABS: ALANINE AMINOTRANSFERASE 24 U/L (9-52); ALBUMIN 4.2 g/dL (3.5-5.0); ALKALINE PHOSPHATASE 163 U/L (38-126); ANION GAP 11 (5-19); ASPARTATE AMINO TRANSFERASE 53 U/L (14-36); BILIRUBIN,DIRECT 0.3 mg/dL (0.0-0.4); BILIRUBIN,TOTAL 0.4 mg/dL (0.2-1.3); BLOOD UREA NITROGEN 25 mg/dL (7-20); CALCIUM 8.8 mg/dL (8.4-10.2); CARBON DIOXIDE 27 mmol/L (22-30); CHLORIDE 96 mmol/L (98-107); CREATINE KINASE 79 U/L (30-135); GLUCOSE 103 mg/dL (75-110); POTASSIUM 4.5 mmol/L (3.6-5.0); SODIUM 133.5 mmol/L (137-145); TOTAL PROTEIN 7.4 g/dL (6.3-8.2)
[2017-06-18 00:20] LABS: CREATINE KINASE MB 1.16 ng/mL (<4.55)
[2017-06-18 00:21] LABS: TROPONIN I < 0.012 ng/mL
--- NOTE | 2017-06-18 00:27 | RADIOLOGY REPORT (SQ) ---
EXAM DESCRIPTION: CHEST SINGLE VIEW CLINICAL HISTORY: chest pain COMPARISON: 02/20/2017 FINDINGS: Single frontal view of the chest. Atherosclerotic calcification and tortuosity of the thoracic aorta. Heart is not enlarged. Low lung volumes. Leads overlie the chest. Postoperative change in the right axillary region. No consolidation, pneumothorax, or pleural effusion. No displaced rib fractures identified. Prior cholecystectomy. IMPRESSION: 1. No acute pulmonary process identified.
--- NOTE | 2017-06-18 03:07 | ER Document Report ---
ED General - General Chief Complaint: Chest Pain Stated Complaint: CHEST PAIN Time Seen by Provider: 06/17/17 23:42 Mode of Arrival: Stretcher Information source: Patient, Relative Notes: This is a 76-year-old female with a history of dementia is brought into the emergency room when she awoke with chest pain. Patient's accompanied by her son who states that she gets anxious at night. He does state that she was doing fine during the day and they were out and she did fall one-point but was able to ambulate after an is not having any problem. Patient does complain of some ache in both shoulders With movement. TRAVEL OUTSIDE OF THE [place] IN LAST 30 DAYS: No - HPI Onset: Just prior to arrival Onset/Duration: Gradual Quality of pain: No pain Severity: None Pain Level: Denies Associated symptoms: Chest pain. denies: Fever Exacerbated by: Movement Relieved by: Remaining still Similar symptoms previously: Yes Recently seen / treated by doctor: Yes - Related Data Allergies/Adverse Reactions: No Known Allergies Allergy (Verified 05/07/16 17:02) Past Medical History - General Information source: Patient, Relative - Social History Smoking Status: Unknown if Ever Smoked Cigarette use (# per day): No Chew tobacco use (# tins/day): No Frequency of alcohol use: None Drug Abuse: None Lives with: Snf Family History: Reviewed & Not Pertinent, CVA, Hyperlipidemia, Hypertension, Malignancy, Thyroid Disfunction Patient has suicidal ideation: No Patient has homicidal ideation: No - Past Medical History Cardiac Medical History: Reports: Hx Coronary Artery Disease, Hx Hypertension Denies: Hx Atrial Fibrillation, Hx Congestive Heart Failure, Hx Heart Attack , Hx Hypercholesterolemia, Hx Peripheral Vascular Disease, Hx Heart Murmur Pulmonary Medical History: Denies: Hx Asthma, Hx Bronchitis, Hx COPD, Hx Pneumonia, Hx Tuberculosis Neurological Medical History: Denies: Hx Cerebrovascular Accident - X 2 DUE TO NEUROLOGIST - , Hx Seizures Endocrine Medical History: Reports: Hx Hypothyroidism. Denies: Hx Graves' Disease, Hx Hyperthyroidism Renal/ Medical History: Denies: Hx Peritoneal Dialysis GI Medical History: Reports: Hx Gastroesophageal Reflux Disease. Denies: Hx Crohn's Disease, Hx Hiatal Hernia, Hx Irritable Bowel, Hx Liver Failure, Hx Pancreatitis, Hx Ulcer Musculoskeltal Medical History: Denies Hx Arthritis, Denies Hx Multiple Sclerosis Psychiatric Medical History: Reports: Hx Anxiety, Hx Dementia, Hx Depression Denies: Hx Bipolar Disorder, Hx Schizophrenia Past Surgical History: Reports: Hx Cardiac Surgery - stents, Hx Cholecystectomy. Denies: Hx Appendectomy, Hx Bowel Surgery, Hx Section , Hx Colostomy, Hx Coronary Artery Bypass Graft, Hx Gastric Bypass Surgery, Hx Herniorrhaphy, Hx Hysterectomy, Hx Mastectomy, Hx Pacemaker, Hx Tonsillectomy, Hx Tubal Ligation - Immunizations Immunizations up to date: Yes Hx Diphtheria, Pertussis, Tetanus Vaccination: Yes Hx Pneumococcal Vaccination: 03/30/11 Review of Systems - Review of Systems Constitutional: denies: Chills, Fever EENT: No symptoms reported Cardiovascular: See HPI Respiratory: No symptoms reported Gastrointestinal: No symptoms reported Genitourinary: No symptoms reported Female Genitourinary: No symptoms reported Musculoskeletal: See HPI Skin: No symptoms reported Hematologic/Lymphatic: No symptoms reported Neurological/Psychological: No symptoms reported Physical Exam - Vital signs Vitals: Pulse Ox 96 06/17/17 23:42 Notes: Physical exam: GENERAL: 76-year-old female, alert and oriented 3, no acute distress. Patient in no pain at this time HEAD: Atraumatic, normocephalic. EYES: Pupils equal round and reactive to light, extraocular movements intact, sclera anicteric, conjunctiva are normal. ENT: TMs normal, nares patent, oropharynx clear without exudates. Moist mucous membranes. NECK: Normal range of motion, supple without obvious mass or JVD. LUNGS: Breath sounds clear to auscultation bilaterally and equal. No wheezes rales or rhonchi. HEART: Regular rate and rhythm without murmurs, rubs or gallops. ABDOMEN: Soft, normoactive bowel sounds. No tenderness to palpation. No guarding, no rebound. No masses appreciated. EXTREMITIES: Normal range of motion, no pitting or edema. No clubbing or cyanosis. NEUROLOGICAL: Cranial nerves II through XII grossly intact. Normal speech, moving all extremities. PSYCH: Normal mood, normal affect. SKIN: Warm, Dry, normal turgor, no rashes or lesions noted. Course - Vital Signs Vital signs: Temp Pulse Resp BP Pulse Ox 98.1 F 20 143/75 H 94 06/18/17 03:13 06/18/17 03:01 06/18/17 03:01 06/18/17 03:01 - Laboratory Result Diagrams: 06/17/17 23:08 06/17/17 23:08 Laboratory results interpreted by me: 06/17/17 06/17/17 23:08 23:08 RDW 14.1 H Sodium 133.5 L Chloride 96 L BUN 25 H Est GFR (Non-Af Amer) 54 L AST 53 H Alkaline Phosphatase 163 H - Diagnostic Test Radiology reviewed: Image reviewed - Chest x-ray shows no infiltrates or effusions - EKG Interpretation by Me Rate: Normal Rhythm: NSR - EKG shows normal sinus rhythm with a ventricular rate of 78, no acute ST-T wave changes Discharge - Discharge Clinical Impression: Chest wall pain Condition: Stable Disposition: HOME, SELF-CARE Additional Instructions: As we discussed the heart enzymes, EKG and chest x-ray looked good today. The other electrolytes, liver function tests and anemia studies were quite good. Continue current medicines, return to the emergency room for any concerns that she getting worse Referrals: ARIS WOODS MD [Primary Care Provider] - Follow up as needed
[2017-06-18 03:10] VITALS: BP 143/75
--- NOTE | 2017-06-18 09:11 | EKG REPORT ---
SEVERITY:- BORDERLINE ECG - SINUS RHYTHM BORDERLINE T WAVE ABNORMALITIES : Confirmed by: Katelin Chisholm 18-Jun-2017 09:10:40
== END 2017-06-18 03:13 | disposition home or self-care (01) ==
LOC: ER 23:29
DX: R07.89 Other chest pain (principal); M25.512 Pain in left shoulder; M25.511 Pain in right shoulder; I10 Essential (primary) hypertension; I25.10 Atherosclerotic heart disease of native coronary artery without angina pectoris; Z95.5 Presence of coronary angioplasty implant and graft
CPT/HCPCS: 93005; 99285; 36415; 82553; 82550; 85025; 80053; 84484; 71045; 93010; A9270 ×2; S0119

== ENCOUNTER 2017-08-17 18:51 | Emergency (ER) | payer MEDICARE, OTHER, MEDICAID ==
[2017-08-17] MEDS ORDERED: ACETAMINOPHEN 325 MG TABLET PO ONE (21:14)
--- NOTE | 2017-08-17 22:19 | ER Document Report ---
ED General - General Chief Complaint: Fall Stated Complaint: FALL/HEAD INJURY Time Seen by Provider: 08/17/17 21:13 Notes: Patient is a 77-year-old female with a past medical history of dementia who presents after having a mechanical fall. Patient reports that another [facility] was trying to take something from her and she resisted causing her to fall backwards. She states that she fell and struck the back of her head. She did not lose consciousness and has not had any associated vomiting, weakness, numbness or confusion since that time. She notes a dull, throbbing, constant pain to her right posterior scalp as well as her coccyx. Nothing improves or worsens this pain. She denies a history of similar injury in the past. She has not seen her primary doctor regarding today's concerns. She is here with her son at the bedside. TRAVEL OUTSIDE OF THE [place] IN LAST 30 DAYS: No - Related Data Allergies/Adverse Reactions: No Known Allergies Allergy (Verified 05/07/16 17:02) Past Medical History - General Information source: Patient - Social History Smoking Status: Former Smoker Frequency of alcohol use: None Drug Abuse: None Lives with: Snf Family History: Reviewed & Not Pertinent, CVA, Hyperlipidemia, Hypertension, Malignancy, Thyroid Disfunction Patient has suicidal ideation: No Patient has homicidal ideation: No - Past Medical History Cardiac Medical History: Reports: Hx Coronary Artery Disease, Hx Hypertension Denies: Hx Atrial Fibrillation, Hx Congestive Heart Failure, Hx Heart Attack , Hx Hypercholesterolemia, Hx Peripheral Vascular Disease, Hx Heart Murmur Pulmonary Medical History: Denies: Hx Asthma, Hx Bronchitis, Hx COPD, Hx Pneumonia, Hx Tuberculosis Neurological Medical History: Denies: Hx Cerebrovascular Accident - X 2 DUE TO NEUROLOGIST - , Hx Seizures Endocrine Medical History: Reports: Hx Hypothyroidism. Denies: Hx Graves' Disease, Hx Hyperthyroidism Renal/ Medical History: Denies: Hx Peritoneal Dialysis GI Medical History: Reports: Hx Gastroesophageal Reflux Disease. Denies: Hx Crohn's Disease, Hx Hiatal Hernia, Hx Irritable Bowel, Hx Liver Failure, Hx Pancreatitis, Hx Ulcer Musculoskeltal Medical History: Denies Hx Arthritis, Denies Hx Multiple Sclerosis Psychiatric Medical History: Reports: Hx Anxiety, Hx Dementia, Hx Depression Denies: Hx Bipolar Disorder, Hx Schizophrenia Past Surgical History: Reports: Hx Cardiac Surgery - stents, Hx Cholecystectomy. Denies: Hx Appendectomy, Hx Bowel Surgery, Hx Section , Hx Colostomy, Hx Coronary Artery Bypass Graft, Hx Gastric Bypass Surgery, Hx Herniorrhaphy, Hx Hysterectomy, Hx Mastectomy, Hx Pacemaker, Hx Tonsillectomy, Hx Tubal Ligation - Immunizations Immunizations up to date: Yes Hx Diphtheria, Pertussis, Tetanus Vaccination: Yes Hx Pneumococcal Vaccination: 03/30/11 Review of Systems - Review of Systems Notes: Constitutional: Negative for fever. Eyes: Negative for visual changes. ENT: Negative for facial injury Cardiovascular: Negative for chest injury. Respiratory: Negative for shortness of breath. Gastrointestinal: Negative for abdominal injury. Genitourinary: Negative for genital injury Musculoskeletal: Positive for coccyx pain Skin: Negative for laceration/abrasions. Neurological: Positive for head injury. Physical Exam - Vital signs Vitals: Temp Pulse Resp BP Pulse Ox 98.7 F 87 18 154/85 H 98 08/17/17 19:21 08/17/17 19:21 08/17/17 19:21 08/17/17 19:21 08/17/17 19:21 Interpretation: Hypertensive Notes: PHYSICAL EXAMINATION: GENERAL: Well-appearing, no acute distress. HEAD: Atraumatic, normocephalic. EYES: Pupils equal round and reactive to light, extraocular movements intact, sclera anicteric, conjunctiva are normal. ENT: nares patent, no oral pharyngeal trauma. No hemotympanum, no Alfaro's sign , no raccoon eyes. NECK: No midline cervical spine tenderness. Patient able to move their head to 45 bilaterally without any discomfort. LUNGS: Breath sounds clear to auscultation bilaterally and equal. No wheezes rales or rhonchi. HEART: Regular rate and rhythm without murmurs. CHEST WALL: No ecchymosis over the chest wall. ABDOMEN: Soft, nontender, normoactive bowel sounds. No guarding, no rebound. No abdominal bruising. EXTREMITIES: Normal range of motion, no pitting or edema. No long bone deformities. BACK: No midline spinal tenderness, step-offs, or deformities. Mild pain on palpation of the coccygeal region NEUROLOGICAL: Face symmetric. Tongue protrudes midline. Extraocular motions intact. Pupils are 2 mm and equally reactive. Normal speech. 5 out of 5 strength in both the distal and proximal upper and lower extremities bilaterally. Sensation is grossly intact throughout. Finger to nose testing normal. Pronator drift normal. PSYCH: Normal mood, normal affect. SKIN: Warm, Dry, normal turgor, no rashes or lesions noted. Course - Re-evaluation Re-evalutation: 08/17/17 22:19 Presentation of a well appearing elderly patient in no acute distress, vitals within normal limits after a mechanical fall. Patient denies a syncopal episode as the cause for today's fall. No focal neurologic deficits on exam, no evidence of basilar skull fracture on exam without evidence of hemotympanum, raccoon eyes, or periauricular hematoma. No papilledema. Patient is not on anticoagulation. GCS is 15. No loss of consciousness. No episodes of vomiting. However, based on patient's age a CT of the head has been obtained which is negative for any acute intracranial bleed. Likewise, patient was unable to be clinically cleared due to age by [place] cervical spine criteria. A CT of the cervical spine was also obtained and likewise is negative for any acute fracture. No indication for further imaging of the cervical spine. Patient has no focal deformities or limited range of motion in any joint space. Chest and abdominal exam are benign without any focal tenderness, shortness of breath, or bruising over the chest or abdominal wall. Patient has no flank tenderness. She was complaining some mild pain over the coccyx and had some slight tenderness to the palpation of this area. An x-ray of the area shows no acute fractures. Family did leave with the patient prior to all results being provided as there was a significant delay in the reads from radiology. I attempted to contact them to inform them that all x-rays and CT scans were normal but they did not answer. Patient did leave AGAINST MEDICAL ADVICE with her son although at this time point I think this is an appropriate discharge - Vital Signs Vital signs: Temp Pulse Resp BP Pulse Ox 98.7 F 78 16 169/83 H 95 08/17/17 19:21 08/18/17 01:00 08/18/17 01:00 08/18/17 01:00 08/18/17 01:00 - Diagnostic Test Radiology reviewed: Image reviewed, Reports reviewed Radiology results interpreted by me: 08/17/17 23:07 CT head: No acute cranial bleed Discharge - Discharge Clinical Impression: Coccyx pain Fall Qualifiers: Encounter type: initial encounter Qualified Code(s): W19.XXXA - Unspecified fall, initial encounter Head trauma Qualifiers: Encounter type: initial encounter Qualified Code(s): S09.90XA - Unspecified injury of head, initial encounter Condition: Good Disposition: HOME, SELF-CARE Additional Instructions: You have been seen in the Emergency Department (ED) today following a fall. Your workup today did not reveal any injuries that require you to stay in the hospital. You can expect, though, to be stiff and sore for the next several days. You can take Tylenol 1000 mg every 6 hours as needed for pain. You can apply a hot pack or electric heating pad to the sore areas. You can also use topical "Aspercreme with lidocaine" to sore areas as needed. Please follow up with your primary care doctor as soon as possible regarding today's ED visit and your recent fall. Call your doctor or return to the ED if you develop a sudden or severe headache , confusion, slurred speech, facial droop, weakness or numbness in any arm or leg, extreme fatigue, vomiting more than two times, severe abdominal pain, or other symptoms that concern you. Referrals: JANESSA ALVARADO MD [Primary Care Provider] - Follow up as needed
--- NOTE | 2017-08-17 23:53 | RADIOLOGY REPORT (SQ) ---
EXAM DESCRIPTION: CT HEAD WITHOUT IV CONTRAST CLINICAL HISTORY: 77 years Female, fall, trauma COMPARISON: None. TECHNIQUE: No contrast. Coronal and sagittal reformat. This exam was performed according to our departmental dose-optimization program, which includes automated exposure control, adjustment of the mA and/or kV according to patient size and/or use of iterative reconstruction technique. FINDINGS: No hemorrhage or infarct. No mass, mass effect, or midline shift. Moderate confluent white matter microangiopathy pattern without significant change. Atherosclerosis. Brain and extra-axial structures appear otherwise intact. IMPRESSION: 1. No acute findings. 2. Advanced white matter microangiopathy pattern. Differential diagnosis includes other white matter processes. Consider further evaluation with MRI or contrasted CT.
--- NOTE | 2017-08-18 01:01 | RADIOLOGY REPORT (SQ) ---
EXAM DESCRIPTION: XR SACRUM COCCYX 2 OR MORE VIEWS CLINICAL HISTORY: 77 years Female, fall, pain COMPARISON: None. Findings: L4 vertebroplasty with mild vertebral height loss. Moderate lower lumbar disc desiccation. Bilateral tubal ligation clips. Left femoral intramedullary raghav partially imaged. Bones, joints, and soft tissues of the XR SACRUM COCCYX 3 VIEWS appear otherwise intact. Bone demineralization. IMPRESSION: No acute findings.
--- NOTE | 2017-08-18 01:02 | RADIOLOGY REPORT (SQ) ---
EXAM: CT cervical spine without contrast. INDICATION: Trauma. Neck pain. TECHNIQUE: Contiguous axial CT images of the cervical spine. Intravenous contrast: Absent. Reformats: MPRs created and utilized. DLP 501 mGy-cm. This exam was performed according to our departmental dose-optimization program, which includes automated exposure control, adjustment of the mA and/or kV according to patient size and/or use of iterative reconstruction technique. COMPARISON: None. FINDINGS: Alignment: Preserved. Fracture: No acute fracture or subluxation. Odontoid process: Intact. Prevertebral soft tissues: No edema. Spondylosis: There is multilevel spondylosis, most notably at C6-C7 with disc space narrowing, vacuum disc phenomenon and marginal osteophytes. There is facet arthropathy with moderate to severe left sided neural foraminal narrowing at C3-C4. Other: None. IMPRESSION: 1. No CT evidence of acute osseous injury of the cervical spine.
[2017-08-18 01:20] VITALS: BP 169/83
== END 2017-08-18 01:09 | disposition left against medical advice (07) ==
LOC: ER 18:51
DX: S09.90XA Unspecified injury of head, initial encounter (principal); R51 Headache; M53.3 Sacrococcygeal disorders, not elsewhere classified; W18.39XA Other fall on same level, initial encounter; Y93.89 Activity, other specified; Y92.199 Unspecified place in other specified residential institution as the place of occurrence of the external cause
CPT/HCPCS: 99284; 72220; 70450; 72125; A9270

== ENCOUNTER → 2017-11-17 | Outpatient (CLI) | payer MEDICARE, OTHER, MEDICAID ==
[2017-11-17 08:14] LABS: ABSOLUTE BASOPHILS # (AUTO) 0.1 10^3/uL (0.0-0.2); ABSOLUTE EOSINOPHILS # (AUTO) 0.2 10^3/uL (0.0-0.6); ABSOLUTE LYMPHOCYTES (AUTO) 1.8 10^3/uL (0.5-4.7); ABSOLUTE MONOCYTES (AUTO) 0.4 10^3/uL (0.1-1.4); ABSOLUTE NEUT (AUTO) 5.9 10^3/uL (1.7-8.2); BASOPHILS % (AUTO) 0.7 % (0-2); EOSINOPHILS % (AUTO) 2.8 % (0-6); HEMATOCRIT 35.1 % (36.0-47.0); HEMOGLOBIN 11.9 g/dL (12.0-15.5); LYMPHOCYTES % (AUTO) 21.5 % (13-45); MEAN CORPUSCULAR HEMOGLOBIN 27.8 pg (27.0-33.4); MEAN CORPUSCULAR HGB CONC 33.9 g/dL (32.0-36.0); MEAN CORPUSCULAR VOLUME 82 fl (80-97); MONOCYTES % (AUTO) 5.2 % (3-13); PLATELET COUNT 406 10^3/uL (150-450); RED BLOOD COUNT 4.29 10^6/uL (3.72-5.28); SEGMENTED NEUTROPHILS % (AUTO) 69.8 % (42-78); TOTAL CELLS COUNTED % (AUTO) 100 %; WHITE BLOOD COUNT 8.5 10^3/uL (4.0-10.5)
[2017-11-17 08:37] LABS: ALANINE AMINOTRANSFERASE 16 U/L (9-52); ALBUMIN 3.8 g/dL (3.5-5.0); ALKALINE PHOSPHATASE 149 U/L (38-126); ANION GAP 11 (5-19); ASPARTATE AMINO TRANSFERASE 16 U/L (14-36); BILIRUBIN,DIRECT 0.3 mg/dL (0.0-0.4); BILIRUBIN,TOTAL 0.5 mg/dL (0.2-1.3); BLOOD UREA NITROGEN 16 mg/dL (7-20); CALCIUM 8.8 mg/dL (8.4-10.2); CARBON DIOXIDE 27 mmol/L (22-30); CHLORIDE 98 mmol/L (98-107); GLUCOSE 88 mg/dL (75-110); POTASSIUM 4.6 mmol/L (3.6-5.0); TOTAL PROTEIN 7.2 g/dL (6.3-8.2); TRIGLYCERIDES 64 mg/dL (<150)
[2017-11-17 08:47] LABS: DIRECT LDL 45 mg/dL (<100)
[2017-11-17 08:52] LABS: FREE T4 (FREE THYROXINE) 1.56 ng/dL (0.78-2.19)
[2017-11-17 09:06] LABS: THYROID STIMULATING HORMONE 3.66 uIU/mL (0.47-4.68)
== END ==
LOC: OD 07:06
PROVIDERS: ATTEND Internal Medicine
DX: I10 Essential (primary) hypertension (principal); E03.9 Hypothyroidism, unspecified; D50.9 Iron deficiency anemia, unspecified; I25.10 Atherosclerotic heart disease of native coronary artery without angina pectoris; R53.83 Other fatigue; Z79.899 Other long term (current) drug therapy
CPT/HCPCS: 36415; 80053; 80061; 84439; 84443; 85025

== ENCOUNTER 2018-01-13 10:19 | Emergency (ER) | payer MEDICARE, OTHER, MEDICAID ==
[2018-01-13 11:01] LABS: ABSOLUTE BASOPHILS # (AUTO) 0.1 10^3/uL (0.0-0.2); ABSOLUTE EOSINOPHILS # (AUTO) 0.2 10^3/uL (0.0-0.6); ABSOLUTE LYMPHOCYTES (AUTO) 1.8 10^3/uL (0.5-4.7); ABSOLUTE MONOCYTES (AUTO) 0.6 10^3/uL (0.1-1.4); ABSOLUTE NEUT (AUTO) 6.9 10^3/uL (1.7-8.2); BASOPHILS % (AUTO) 0.8 % (0-2); EOSINOPHILS % (AUTO) 1.9 % (0-6); HEMATOCRIT 35.2 % (36.0-47.0); HEMOGLOBIN 11.9 g/dL (12.0-15.5); LYMPHOCYTES % (AUTO) 18.6 % (13-45); MEAN CORPUSCULAR HEMOGLOBIN 27.9 pg (27.0-33.4); MEAN CORPUSCULAR HGB CONC 33.9 g/dL (32.0-36.0); MEAN CORPUSCULAR VOLUME 82 fl (80-97); PLATELET COUNT 403 10^3/uL (150-450); RED BLOOD COUNT 4.28 10^6/uL (3.72-5.28); RED CELL DISTRIBUTION WIDTH 14.8 % (11.5-14.0); SEGMENTED NEUTROPHILS % (AUTO) 72.7 % (42-78); TOTAL CELLS COUNTED % (AUTO) 100 %; WHITE BLOOD COUNT 9.5 10^3/uL (4.0-10.5)
--- NOTE | 2018-01-13 11:15 | ER Document Report ---
ED General - General Chief Complaint: Dizziness Stated Complaint: WEAKNESS Time Seen by Provider: 01/13/18 10:56 Notes: Patient is a 77-year-old female that presents to the emergency department for chief complaint of lightheadedness. Patient states that she was getting up from a seated position at home, and she felt lightheaded, but she did not pass out she had some mild nausea associated but no vomiting. She denies any associated headache. Or visual changes. She denies any complaints at this time , and feels quite well. She does complain of having some dysuria over the last 2 days, and urinary frequency. Denies noting any nausea, vomiting, diarrhea. Otherwise she states she is healthy, and has no other complaints at this time, and feels back to her baseline. Past Medical History: Denies chronic medical conditions Past Surgical History: Appendectomy Social History: Former smoker, denies alcohol or drug use Family History: Reviewed and noncontributory for presenting illness Allergies: Reviewed, see documented allergy list. REVIEW OF SYSTEMS: Unless otherwise stated in this report the patient's positive and negative responses for review of systems for constitutional, eyes, ENT, cardiovascular, respiratory, gastrointestinal, neurological, genitourinary, musculoskeletal, and integumentary systems and related systems to the presenting problem are either as stated in the HPI or were not pertinent or were negative for the symptoms and/or complaints related to the presenting medical problem. PHYSICAL EXAMINATION: Vital signs reviewed, nursing noted reviewed. GENERAL: Elderly female, appropriate, and in no acute distress. HEAD: Atraumatic, normocephalic. EYES: Eyes appear normal, extraocular movements intact, sclera anicteric, conjunctiva are normal. ENT: nares patent, oropharynx clear without exudates. Moist mucous membranes. NECK: Normal range of motion, supple without lymphadenopathy LUNGS: Breath sounds clear to auscultation bilaterally and equal. No wheezes rales or rhonchi. HEART: Regular rate and rhythm without murmurs ABDOMEN: Soft, nontender, normoactive bowel sounds. No rebound, guarding, or rigidity. No masses appreciated. EXTREMITIES: Nontender, good range of motion, no pitting or edema. NEUROLOGICAL: No focal neurological deficits. Moves all extremities spontaneously Motor and sensory grossly intact on exam. PSYCH: Normal mood, normal affect. SKIN: Warm, Dry, normal turgor, no rashes or lesions noted on exposed skin TRAVEL OUTSIDE OF THE [place] IN LAST 30 DAYS: No - Related Data Allergies/Adverse Reactions: No Known Allergies Allergy (Verified 05/07/16 17:02) Past Medical History - Social History Smoking Status: Former Smoker Family History: Reviewed & Not Pertinent, CVA, Hyperlipidemia, Hypertension, Malignancy, Thyroid Disfunction Patient has suicidal ideation: No Patient has homicidal ideation: No - Past Medical History Cardiac Medical History: Reports: Hx Coronary Artery Disease, Hx Hypertension Denies: Hx Atrial Fibrillation, Hx Congestive Heart Failure, Hx Heart Attack , Hx Hypercholesterolemia, Hx Peripheral Vascular Disease, Hx Heart Murmur Pulmonary Medical History: Denies: Hx Asthma, Hx Bronchitis, Hx COPD, Hx Pneumonia, Hx Tuberculosis Neurological Medical History: Denies: Hx Cerebrovascular Accident - X 2 DUE TO NEUROLOGIST - , Hx Seizures Endocrine Medical History: Reports: Hx Hypothyroidism. Denies: Hx Graves' Disease, Hx Hyperthyroidism Renal/ Medical History: Denies: Hx Peritoneal Dialysis GI Medical History: Reports: Hx Gastroesophageal Reflux Disease. Denies: Hx Crohn's Disease, Hx Hiatal Hernia, Hx Irritable Bowel, Hx Liver Failure, Hx Pancreatitis, Hx Ulcer Musculoskeletal Medical History: Denies Hx Arthritis, Denies Hx Multiple Sclerosis Psychiatric Medical History: Reports: Hx Anxiety, Hx Dementia, Hx Depression Denies: Hx Bipolar Disorder, Hx Schizophrenia Past Surgical History: Reports: Hx Cardiac Surgery - stents, Hx Cholecystectomy. Denies: Hx Appendectomy, Hx Bowel Surgery, Hx Section , Hx Colostomy, Hx Coronary Artery Bypass Graft, Hx Gastric Bypass Surgery, Hx Herniorrhaphy, Hx Hysterectomy, Hx Mastectomy, Hx Pacemaker, Hx Tonsillectomy, Hx Tubal Ligation - Immunizations Immunizations up to date: Yes Hx Diphtheria, Pertussis, Tetanus Vaccination: Yes Hx Pneumococcal Vaccination: 03/30/11 Physical Exam - Vital signs Vitals: Temp Pulse Resp BP Pulse Ox 98.0 F 86 24 H 134/74 H 99 01/13/18 10:26 01/13/18 10:26 01/13/18 10:26 01/13/18 10:26 01/13/18 10:26 Course - Re-evaluation Re-evalutation: Patient seen and examined vital signs reviewed. Laboratory data and imaging were ordered as appropriate for the patient's presenting symptoms and complaint, with consideration of any critical or life threatening conditions that may be associated with their obtained history and exam as noted above. Patient was treated with gentle IV fluids Results were reviewed when available and demonstrated mild hyponatremia, UA was consistent with urinary tract infection, combination of these things the patient is likely mildly dehydrated, which would explain her near syncopal episode The patient was re-evaluated and was stable, and feeling well Evaluation was most consistent with mild hyponatremia, urinary tract infection, near syncope Results were discussed with the patient at this point, after careful consideration I feel that that patient can be discharged from the emergency department, the patient was educated treatments and reasons to return to the emergency department based on their presumed diagnosis as noted above, they were advised to followup with a primary care physician in 2-3 days. Patient was agreeable to plan of care. *Note is created using voice recognition software and may contain spelling, syntax or grammatical errors. Laboratory 01/13/18 01/13/18 01/13/18 10:24 10:46 10:46 WBC 9.5 RBC 4.28 Hgb 11.9 L Hct 35.2 L MCV 82 MCH 27.9 MCHC 33.9 RDW 14.8 H Plt Count 403 Seg Neutrophils % 72.7 Lymphocytes % 18.6 Monocytes % 6.0 Eosinophils % 1.9 Basophils % 0.8 Absolute Neutrophils 6.9 Absolute Lymphocytes 1.8 Absolute Monocytes 0.6 Absolute Eosinophils 0.2 Absolute Basophils 0.1 Sodium 132.4 L Potassium 4.3 Chloride 96 L Carbon Dioxide 24 Anion Gap 12 BUN 21 H Creatinine 1.05 Est GFR ( Amer) > 60 Est GFR (Non-Af Amer) 51 L Glucose 108 POC Glucose 107 Calcium 9.2 Total Bilirubin 0.6 Direct Bilirubin 0.2 Neonat Total Bilirubin Not Reportable Neonat Direct Bilirubin Not Reportable Neonat Indirect Bili Not Reportable AST 17 ALT 14 Alkaline Phosphatase 119 Creatine Kinase 44 CK-MB (CK-2) Troponin I Total Protein 7.2 Albumin 3.8 Urine Color Urine Appearance Urine pH Ur Specific [place] Urine Protein Urine Glucose (UA) Urine Ketones Urine Blood Urine Nitrite Urine Bilirubin Urine Urobilinogen Ur Leukocyte Esterase Urine WBC (Auto) Urine RBC (Auto) Urine Bacteria (Auto) Squamous Epi Cells Auto Urine Mucus (Auto) Urine Ascorbic Acid 01/13/18 01/13/18 10:46 12:15 WBC RBC Hgb Hct MCV MCH MCHC RDW Plt Count Seg Neutrophils % Lymphocytes % Monocytes % Eosinophils % Basophils % Absolute Neutrophils Absolute Lymphocytes Absolute Monocytes Absolute Eosinophils Absolute Basophils Sodium Potassium Chloride Carbon Dioxide Anion Gap BUN Creatinine Est GFR ( Amer) Est GFR (Non-Af Amer) Glucose POC Glucose Calcium Total Bilirubin Direct Bilirubin Neonat Total Bilirubin Neonat Direct Bilirubin Neonat Indirect Bili AST ALT Alkaline Phosphatase Creatine Kinase CK-MB (CK-2) 1.30 Troponin I < 0.012 Total Protein Albumin Urine Color YELLOW Urine Appearance CLOUDY Urine pH 6.0 Ur Specific [place] 1.016 Urine Protein NEGATIVE Urine Glucose (UA) NEGATIVE Urine Ketones NEGATIVE Urine Blood MODERATE H Urine Nitrite NEGATIVE Urine Bilirubin NEGATIVE Urine Urobilinogen NEGATIVE Ur Leukocyte Esterase MODERATE H Urine WBC (Auto) 31 Urine RBC (Auto) 42 Urine Bacteria (Auto) 3+ Squamous Epi Cells Auto 5 Urine Mucus (Auto) RARE Urine Ascorbic Acid NEGATIVE Chest X-Ray 01/13/18 12:07 IMPRESSION: NO ACUTE RADIOGRAPHIC FINDING IN THE CHEST. - Vital Signs Vital signs: Temp Pulse Resp BP Pulse Ox 98.0 F 86 32 H 160/95 H 97 01/13/18 10:26 01/13/18 10:26 01/13/18 13:01 01/13/18 13:01 01/13/18 13:00 - Laboratory Result Diagrams: 01/13/18 10:46 01/13/18 10:46 Laboratory results interpreted by me: 01/13/18 01/13/18 01/13/18 10:46 10:46 12:15 Hgb 11.9 L Hct 35.2 L RDW 14.8 H Sodium 132.4 L Chloride 96 L BUN 21 H Est GFR (Non-Af Amer) 51 L Urine Blood MODERATE H Ur Leukocyte Esterase MODERATE H - EKG Interpretation by Me Additional EKG results interpreted by me: EKG demonstrates sinus rhythm with a ventricular rate of 77 bpm, left axis deviation, QTC 471 ms, baseline artifact noted, no evidence of acute ischemia, this is compared with her prior EKG from 06/17/2017, without significant change. Discharge - Discharge Clinical Impression: Near syncope, Hyponatremia UTI (urinary tract infection) Qualifiers: Urinary tract infection type: site unspecified Hematuria presence: with hematuria Qualified Code(s): N39.0 - Urinary tract infection, site not specified Condition: Stable Disposition: HOME, SELF-CARE Instructions: Cephalexin ([facility]), Urinary Tract Infection ([facility]) Additional Instructions: Please take your time changing from positions, maintain hydration at home, take the antibiotics as prescribed Please return to the emergency department if you have any worsening, or concern of your symptoms. Please return to the emergency department if you develop chest pain, difficulty breathing, severe abdominal pain, or ongoing vomiting. Please follow-up with your primary care physician in 2-3 days and any other recommended physicians. If prescribed, take all medications as directed. If you have any questions or concerns do not hesitate to return the emergency department for evaluation. Prescriptions: Cephalexin Monohydrate [Keflex 500 mg Capsule] 500 mg PO BID 5 Days #10 capsule Referrals: DIONISIO LÓPEZ MD [COMMUNITY BASED STAFF] - Follow up in 3-5 days (or your primary care. )
[2018-01-13 11:25] LABS: ALANINE AMINOTRANSFERASE 14 U/L (9-52); ALBUMIN 3.8 g/dL (3.5-5.0); ALKALINE PHOSPHATASE 119 U/L (38-126); ANION GAP 12 (5-19); ASPARTATE AMINO TRANSFERASE 17 U/L (14-36); BILIRUBIN,DIRECT 0.2 mg/dL (0.0-0.4); BILIRUBIN,TOTAL 0.6 mg/dL (0.2-1.3); BLOOD UREA NITROGEN 21 mg/dL (7-20); CALCIUM 9.2 mg/dL (8.4-10.2); CARBON DIOXIDE 24 mmol/L (22-30); CHLORIDE 96 mmol/L (98-107); CREATINE KINASE 44 U/L (30-135); GLUCOSE 108 mg/dL (75-110); POTASSIUM 4.3 mmol/L (3.6-5.0); SODIUM 132.4 mmol/L (137-145); TOTAL PROTEIN 7.2 g/dL (6.3-8.2)
[2018-01-13 11:38] LABS: TROPONIN I < 0.012 ng/mL
[2018-01-13] MEDS ORDERED: NORMAL SALINE 500 ML IV ONE (12:06)
--- NOTE | 2018-01-13 12:43 | RADIOLOGY REPORT (SQ) ---
EXAM DESCRIPTION: CHEST SINGLE VIEW COMPLETED DATE/TIME: 01/13/2018 12:34 pm REASON FOR STUDY: near syncope COMPARISON: 02/20/2017 EXAM PARAMETERS: NUMBER OF VIEWS: One view. TECHNIQUE: Single frontal radiographic view of the chest acquired. RADIATION DOSE: NA LIMITATIONS: None. FINDINGS: LUNGS AND PLEURA: No opacities, masses or pneumothorax. No pleural effusion. MEDIASTINUM AND HILAR STRUCTURES: No masses. Contour normal. HEART AND VASCULAR STRUCTURES: Heart normal in size. Normal vasculature. BONES: No acute findings. HARDWARE: None in the chest. OTHER: No other significant finding. IMPRESSION: NO ACUTE RADIOGRAPHIC FINDING IN THE CHEST. TECHNICAL DOCUMENTATION: JOB ID: [id number] [email or web address]- All Rights Reserved Reading location - IP/workstation name: [email or web address]
[2018-01-13 12:48] LABS: APPEARANCE,URINE CLOUDY; BILIRUBIN,URINE NEGATIVE (NEGATIVE); COLOR,URINE YELLOW; GLUCOSE, URINE NEGATIVE (NEGATIVE); KETONES,URINE NEGATIVE (NEGATIVE); LEUKOCYTE ESTERASE,URINE MODERATE (NEGATIVE); NITRITE,URINE NEGATIVE (NEGATIVE); PROTEIN,URINE NEGATIVE (NEGATIVE); URINE SPECIFIC GRAVITY 1.016; UROBILINOGEN,URINE NEGATIVE mg/dL (<2.0)
--- NOTE | 2018-01-13 12:59 | EKG REPORT ---
SEVERITY:- ABNORMAL ECG - BASELINE ARTIFACTS SINUS RHYTHM LEFT VENTRICULAR HYPERTROPHY : Confirmed by: Waylon Bragg MD 13-Jan-2018 12:58:47
[2018-01-13 13:03] VITALS: BP 160/95
== END 2018-01-13 14:20 | disposition home or self-care (01) ==
LOC: ER 10:19
DX: R42 Dizziness and giddiness (principal); E87.1 Hypo-osmolality and hyponatremia; N39.0 Urinary tract infection, site not specified; R53.1 Weakness; R11.0 Nausea; R30.0 Dysuria; R35.0 Frequency of micturition; Z87.891 Personal history of nicotine dependence; I25.10 Atherosclerotic heart disease of native coronary artery without angina pectoris; I10 Essential (primary) hypertension
CPT/HCPCS: 93005; 99284; 36415; 87086; 82553; 82962; 82550; 85025; 87088; 80053; 81001; 84484; 87186; 71045; 93010; J7040

== ENCOUNTER 2018-02-04 17:17 | Emergency (ER) | payer MEDICARE, OTHER, MEDICAID ==
--- NOTE | 2018-02-04 18:55 | ER Document Report ---
ED General - General Mode of Arrival: Medic Information source: Patient TRAVEL OUTSIDE OF THE [place] IN LAST 30 DAYS: No <CITLALLI LOUIS - Last Filed: 02/05/18 00:18> <LONDON ARVIZU - Last Filed: 02/05/18 00:23> - General Chief Complaint: Facial Injury Stated Complaint: FALL FACIAL INJURY Time Seen by Provider: 02/04/18 18:30 Notes: Patient is a 77 year old female with Alzheimer's disease presents to the emergency department from [facility] due to a fall. Patient states she was trying to get out of bed when she tangled her feet and fell. She denies a loss of consciousness but states she did become lightheaded and her vision was blurry after the fall. She also complains of a hematoma to the left side of her forehead. Patient denies any vomiting, neck pain, numbness or tingling sensations. According to EMS not much history could be obtained due to the patients fall not being witnessed. Patient is not on any blood thinners. (CITLALLI LOUIS) - Related Data Allergies/Adverse Reactions: No Known Allergies Allergy (Verified 05/07/16 17:02) Past Medical History - General Information source: Patient - Social History Smoking Status: Former Smoker Cigarette use (# per day): No Chew tobacco use (# tins/day): No Smoking Education Provided: No Frequency of alcohol use: None Family History: Reviewed & Not Pertinent, CVA, Hyperlipidemia, Hypertension, Malignancy, Thyroid Disfunction Patient has suicidal ideation: No Patient has homicidal ideation: No - Past Medical History Cardiac Medical History: Reports: Hx Coronary Artery Disease, Hx Hypertension Endocrine Medical History: Reports: Hx Hypothyroidism GI Medical History: Reports: Hx Gastroesophageal Reflux Disease Psychiatric Medical History: Reports: Hx Anxiety, Hx Dementia, Hx Depression Past Surgical History: Reports: Hx Cardiac Surgery - stents, Hx Cholecystectomy - Immunizations Immunizations up to date: Yes Hx Diphtheria, Pertussis, Tetanus Vaccination: Yes Hx Pneumococcal Vaccination: 03/30/11 <CITLALLI LOUIS - Last Filed: 02/05/18 00:18> Review of Systems - Review of Systems Constitutional: No symptoms reported EENT: See HPI Cardiovascular: No symptoms reported Respiratory: No symptoms reported Gastrointestinal: No symptoms reported Genitourinary: No symptoms reported Female Genitourinary: No symptoms reported Musculoskeletal: See HPI Skin: See HPI Hematologic/Lymphatic: No symptoms reported Neurological/Psychological: No symptoms reported -: Yes All other systems reviewed and negative <MISSY,TAMOBED - Last Filed: 02/05/18 00:18> Physical Exam <MISSYTREVONOBED - Last Filed: 02/05/18 00:18> <LONDON ARVIZU - Last Filed: 02/05/18 00:23> - Vital signs Vitals: Temp Pulse BP Pulse Ox 99.5 F 75 207/88 H 97 02/04/18 17:29 02/04/18 17:29 02/04/18 17:29 02/04/18 17:29 - Notes Notes: GENERAL: Alert, interacts well, cooperative. No acute distress. HEAD: Normocephalic. Ecchymotic hematoma to the left side of the forehead on top of the left eyebrow.See skin. EYES: Pupils equal, round, and reactive to light. Extraocular movements intact. ENT: Oral mucosa moist, tongue midline. NECK: Full range of motion. Supple. Trachea midline. No midline bony tenderness to palpation. LUNGS: Clear to auscultation bilaterally, no wheezes, rales, or rhonchi. No respiratory distress. Status post mastectomy of the right. Erythema under the left breast consistent with yeast, paste currently applied. HEART: Regular rate and rhythm. No murmurs, gallops, or rubs. ABDOMEN: Soft, diffuse tenderness to palpation. Non-distended. Bowel sounds present in all 4 quadrants. EXTREMITIES: Moves all 4 extremities spontaneously. No edema, radial and dorsalis pedis pulses 2/4 bilaterally. No cyanosis. NEUROLOGICAL: Demented at baseline. Oriented to person and events. PSYCH: Normal affect, normal mood. SKIN: Warm, dry, normal turgor. 2.5 cm skin tear on the dorsal aspect of right hand on web between thumb and 1st finger, tender to palpation to the 1st and second metacarpal, no signs of deformity. 3 cm skin tear on the dorsal aspect of left forearm distally. 1.5 cm laceration to just inferolateral to the lower eyelid. Multiple ecchymoses in very stages of healing. (CITLALLI LOUIS) Course <CITLALLI LOUIS - Last Filed: 02/05/18 00:18> <LONDON ARVIZU - Last Filed: 02/05/18 00:23> - Re-evaluation Re-evalutation: 02/04/18 20:56 Mechanical fall out of bed as recounted by patient, CT scan of the head was ordered given the location of the hematoma and some nausea, this was negative for acute bleeding or fracture, no evidence of orbital fracture, x-rays of the hand were negative for fracture on the right hand. Both lacerations were Steri- Stripped on the upper extremities and the laceration by the eye was approximated using Dermabond. Patient is not on any blood thinners. Patient will be discharged back to the [facility]. Son at the bedside is in agreement. (LONDON ARVIZU) - Vital Signs Vital signs: Temp Pulse Resp BP Pulse Ox 98.6 F 82 20 193/86 H 95 02/04/18 21:15 02/04/18 21:15 02/04/18 21:15 02/04/18 21:15 02/04/18 21:15 Procedures - Laceration/Wound Repair right hand Wound length (cm): 2.5 Wound's Depth, Shape: Flap Laceration pre-procedure: Shur-Clens applied Wound explored: Clean Wound Repaired With: Steri-strips Post-procedure wound care: Sterile dressing applied Post-procedure NV exam normal: Yes Complications: No left arm Wound length (cm): 3 Wound's Depth, Shape: Superficial, Flap Wound Repaired With: Steri-strips Layer Closure?: No Post-procedure wound care: Sterile dressing applied Post-procedure NV exam normal: Yes Complications: No left face Wound length (cm): 1.5 Wound's Depth, Shape: Superficial, Linear Anesthetic type: Other - L.E.T. Wound explored: Clean, No foreign body removed Wound Repaired With: Dermabond Layer Closure?: No Post-procedure NV exam normal: Yes Complications: No <LONDON ARVIZU - Last Filed: 02/05/18 00:23> Discharge <CITLALLI LOUIS - Last Filed: 02/05/18 00:18> <LONDON ARVIZU - Last Filed: 02/05/18 00:23> - Discharge Clinical Impression: Skin tear of left upper extremity Fall Qualifiers: Encounter type: initial encounter Qualified Code(s): W19.XXXA - Unspecified fall, initial encounter Forehead contusion Qualifiers: Encounter type: initial encounter Qualified Code(s): S00.83XA - Contusion of other part of head, initial encounter Facial laceration Qualifiers: Encounter type: initial encounter Qualified Code(s): S01.81XA - Laceration without foreign body of other part of head, initial encounter Skin tear of right hand without complication Qualifiers: Encounter type: initial encounter Qualified Code(s): S61.411A - Laceration without foreign body of right hand, initial encounter Condition: Stable Disposition: HOME-ASSISTED LIVING Additional Instructions: Dermabond (Skin Adhesive Closure) Skin adhesive (such as Dermabond) is a quick-drying glue that remains slightly flexible while it holds wound edges together. It can substitute for stitches on some cuts. The film will usually fall off the skin after 5 to 10 days. Keep the wound area clean and dry. Do not soak or scrub the wound. Don't swim. You can shower briefly after 24 hours. Gently blot the area dry with a soft towel. Don't apply ointments. If there is a dressing, change it immediately if it gets wet. Do not place tape directly over the adhesive film, because the tape may pull the film off your skin as you remove it. Don't bump the wound area. If there's risk of injury, keep the area well- padded. Avoid stretching of the skin. Do not scratch or pick at the adhesive film. Avoid prolonged exposure to sunlight or tanning lamps. Return if there is increasing pain, swelling, redness, or drainage, or if the wound edges seem to open or separate. Skin Tear Your wound is a skin tear. These wounds are difficult and sometimes impossible to suture because the skin is so fragile that it may not hold the sutures. The skin condition can be due to aging and sometimes medications. The best care for such skin tears is sometimes to not try to suture them. Rather, it is best to position the skin as closely as possible to its original location and apply a bandage that can remain in place for several days at a time and sometimes these bandages are left in place until the wound has healed. Most skin tears will heal in about two weeks. Because they are so difficult to care for, skin tears should be expected to leave some scarring. Referrals: MARLON PEGUERO MD [Primary Care Provider] - Follow up as needed Scribe Attestation: 02/05/18 00:23 I personally performed the services described in the documentation, reviewed and edited the documentation which was dictated to the scribe in my presence, and it accurately records my words and actions. (LONDON ARVIZU) Scribe Documentation - Scribe Written by [employer]:: Dilia Peck, 02/04/2018 19:19 acting as scribe for :: Georgi <CITLALLI LOUIS - Last Filed: 02/05/18 00:18>
--- NOTE | 2018-02-04 19:02 | RADIOLOGY REPORT (SQ) ---
EXAM DESCRIPTION: CT HEAD WITHOUT COMPLETED DATE/TIME: 02/04/2018 6:51 pm REASON FOR STUDY: fall, hit head, alzheimers COMPARISON: 08/17/2017. TECHNIQUE: Axial images acquired through the brain without intravenous contrast. Images reviewed wi th bone, brain and subdural windows. Additional sagittal and coronal reconstructions were generated. Images stored on PACS. All CT scanners at this facility use dose modulation, iterative reconstruction, and/or weight based d osing when appropriate to reduce radiation dose to as low as reasonably achievable (ALARA). [facility]: Dose Right [facility]: CareDose [facility]: Dose Right [facility]: Teradose 4D [facility]: Opentopic RADIATION DOSE: CT Rad equipment meets quality standard of care and radiation dose reduction techniq ues were employed. CTDIvol: 53.2 mGy. DLP: 1177 mGy-cm.mGy. LIMITATIONS: None. FINDINGS: VENTRICLES: Prominent. CEREBRUM: No masses. No hemorrhage. No midline shift. Areas of low density in the white matter mos t likely due to chronic micro-vascular ischemic change. No evidence for acute infarction. CEREBELLUM: No masses. No hemorrhage. No alteration of density. No evidence for acute infarction. EXTRAAXIAL SPACES: Age-related involutional change. No fluid collections. No masses. ORBITS AND GLOBE: No intra- or extraconal masses. Normal contour of globe without masses. CALVARIUM: No fracture. PARANASAL SINUSES: No fluid or mucosal thickening. SOFT TISSUES: Soft tissue hematoma above the left orbit. OTHER: No other significant finding. IMPRESSION: 1. CHRONIC CHANGES OF ATROPHY AND MICROVASCULAR ISCHEMIA. NO ACUTE PROCESS. 2. SOFT TISSUE HEMATOMA ABOVE THE LEFT ORBIT. NO FRACTURE. EVIDENCE OF ACUTE STROKE: NO. TECHNICAL DOCUMENTATION: JOB ID: [id number] Quality ID # [id number]: Final reports with documentation of one or more dose reduction techniques (e.g., Au tomated exposure control, adjustment of the mA and/or kV according to patient size, use of iterative reconstruction technique) 2010 [email or web address]- All Rights Reserved Reading location - IP/workstation name: [email or web address]
[2018-02-04] MEDS ORDERED: LIDOCAINE 4%/TETRACAINE 0.5%/EPI 0.18% 5 ML TOPICAL SOLN TOP ONE (19:28)
[2018-02-04] MEDS ORDERED: EPINEPHRINE INJ/PF 1 MG/1 ML AMPULE ONE (19:49)
--- NOTE | 2018-02-04 20:19 | RADIOLOGY REPORT (SQ) ---
EXAM DESCRIPTION: HAND RIGHT 3 VIEWS COMPLETED DATE/TIME: 02/04/2018 7:37 pm REASON FOR STUDY: fall on to right hand COMPARISON: None. EXAM PARAMETERS: NUMBER OF VIEWS: Three views. TECHNIQUE: AP, lateral and oblique radiographic images acquired of the right hand. LIMITATIONS: None. FINDINGS: MINERALIZATION: Osteopenia. BONES: No acute fracture or dislocation. No worrisome bone lesions. JOINTS: No effusions. SOFT TISSUES: No soft tissue swelling. No foreign body. OTHER: No other significant finding. IMPRESSION: NEGATIVE STUDY OF THE RIGHT HAND. NO RADIOGRAPHIC EVIDENCE OF ACUTE INJURY. TECHNICAL DOCUMENTATION: JOB ID: [id number] [employer]- All Rights Reserved Reading location - IP/workstation name: [email or web address]
[2018-02-04 21:27] VITALS: BP 193/86
== END 2018-02-04 21:20 | disposition home health service (06) ==
LOC: ER 17:17
DX: S00.83XA Contusion of other part of head, initial encounter (principal); S01.81XA Laceration without foreign body of other part of head, initial encounter; S61.411A Laceration without foreign body of right hand, initial encounter; W06.XXXA Fall from bed, initial encounter; Y92.129 Unspecified place in nursing home as the place of occurrence of the external cause; G30.9 Alzheimer's disease, unspecified; F02.80 Dementia in other diseases classified elsewhere, unspecified severity, without behavioral disturbance, psychotic disturbance, mood disturbance, and anxiety
CPT/HCPCS: 99284; 73130; 70450; 12011; J0171

== ENCOUNTER 2018-06-23 08:25 | Emergency (ER) | payer MEDICARE, OTHER, MEDICAID ==
[2018-06-23] MEDS ORDERED: ACETAMINOPHEN 325 MG TABLET PO ONE (08:58)
[2018-06-23 09:01] LABS: ABSOLUTE BASOPHILS # (AUTO) 0.1 10^3/uL (0.0-0.2); ABSOLUTE EOSINOPHILS # (AUTO) 0.1 10^3/uL (0.0-0.6); ABSOLUTE LYMPHOCYTES (AUTO) 1.2 10^3/uL (0.5-4.7); ABSOLUTE MONOCYTES (AUTO) 0.3 10^3/uL (0.1-1.4); ABSOLUTE NEUT (AUTO) 6.1 10^3/uL (1.7-8.2); BASOPHILS % (AUTO) 1.2 % (0-2); EOSINOPHILS % (AUTO) 1.3 % (0-6); HEMOGLOBIN 12.4 g/dL (12.0-15.5); LYMPHOCYTES % (AUTO) 14.9 % (13-45); MEAN CORPUSCULAR HGB CONC 34.4 g/dL (32.0-36.0); MEAN CORPUSCULAR VOLUME 84 fl (80-97); MONOCYTES % (AUTO) 4.4 % (3-13); PLATELET COUNT 326 10^3/uL (150-450); RED BLOOD COUNT 4.27 10^6/uL (3.72-5.28); RED CELL DISTRIBUTION WIDTH 14.7 % (11.5-14.0); SEGMENTED NEUTROPHILS % (AUTO) 78.2 % (42-78); TOTAL CELLS COUNTED % (AUTO) 100 %; WHITE BLOOD COUNT 7.8 10^3/uL (4.0-10.5)
[2018-06-23] MEDS ORDERED: CLONIDINE HCL 0.1 MG TABLET PO ONE (09:20)
--- NOTE | 2018-06-23 09:22 | ER Document Report ---
ED General - General Chief Complaint: Dizziness Stated Complaint: GENERAL WEAKNESS Time Seen by Provider: 06/23/18 08:43 Primary Care Provider: JANESSA ALVARADO MD [EMERITUS] - Follow up tomorrow Mode of Arrival: Medic Information source: Patient Notes: Patient presents complaining of chest pain that she describes as a tightness and frontal headache pain. Patient states that she has had symptoms off and on for the past week but became anxious about her symptoms today which prompted her visit. Patient does have a history of anxiety as well. TRAVEL OUTSIDE OF THE [place] IN LAST 30 DAYS: No - HPI Onset: Last week Onset/Duration: Waxing and waning Quality of pain: Other - Tightness Associated symptoms: Chest pain, Headache, Nausea. denies: Nonproductive cough, Productive cough, Diarrhea, Fever, Vomiting, Shortness of breath Exacerbated by: Denies Relieved by: Denies Similar symptoms previously: No Recently seen / treated by doctor: No - Related Data Allergies/Adverse Reactions: No Known Allergies Allergy (Verified 06/23/18 10:50) Past Medical History - General Information source: Patient - Social History Smoking Status: Former Smoker Frequency of alcohol use: None Drug Abuse: None Lives with: Custodial Family History: Reviewed & Not Pertinent, CVA, Hyperlipidemia, Hypertension, Malignancy, Thyroid Disfunction Patient has suicidal ideation: No Patient has homicidal ideation: No - Past Medical History Cardiac Medical History: Reports: Hx Coronary Artery Disease, Hx Hypercholesterolemia, Hx Hypertension Pulmonary Medical History: Reports: Hx Intubation Neurological Medical History: Denies: Hx Seizures Endocrine Medical History: Reports: Hx Hypothyroidism Renal/ Medical History: Denies: Hx Peritoneal Dialysis Malignancy Medical History: Reports: Hx Breast Cancer GI Medical History: Reports: Hx Gastroesophageal Reflux Disease. Denies: Hx Hiatal Hernia, Hx Ulcer Psychiatric Medical History: Reports: Hx Anxiety, Hx Dementia, Hx Depression Denies: Hx Bipolar Disorder, Hx Schizophrenia Past Surgical History: Reports: Hx Cardiac Surgery - stents, Hx Cholecystectomy - Immunizations Immunizations up to date: Yes Hx Diphtheria, Pertussis, Tetanus Vaccination: Yes Hx Pneumococcal Vaccination: 03/30/11 Review of Systems - Review of Systems Constitutional: No symptoms reported. denies: Fever, Recent illness EENT: No symptoms reported Cardiovascular: Chest pain, Dizziness Respiratory: No symptoms reported. denies: Cough, Short of breath Gastrointestinal: Nausea. denies: Abdominal pain, Diarrhea, Vomiting Genitourinary: No symptoms reported Female Genitourinary: No symptoms reported Musculoskeletal: No symptoms reported. denies: Back pain, Leg swelling Skin: No symptoms reported Hematologic/Lymphatic: No symptoms reported Neurological/Psychological: Dementia, Headaches. denies: Numbness Physical Exam - Vital signs Vitals: Resp Pulse Ox 17 96 06/23/18 08:58 06/23/18 08:58 - General General appearance: Appears well, Alert In distress: None - HEENT Head: Normocephalic, Atraumatic Eyes: Normal Conjunctiva: Normal Extraocular movements intact: Yes Eyelashes: Normal Pupils: PERRL Ears: Normal External canal: Normal Tympanic membrane: Normal Nasal: Normal Mouth/Lips: Normal Mucous membranes: Normal Pharynx: Normal Neck: Normal, Supple. No: Lymphadenopathy - Respiratory Respiratory status: No respiratory distress Chest status: Nontender Breath sounds: Normal. No: Rales, Rhonchi, Stridor, Wheezing Chest palpation: Normal - Cardiovascular Rhythm: Regular Heart sounds: S1 appreciated, S2 appreciated Murmur: No - Abdominal Inspection: Obese Distension: No distension Bowel sounds: Normal Tenderness: Nontender Organomegaly: No organomegaly - Back Back: Normal, Nontender. No: CVA tenderness - Extremities General upper extremity: Normal inspection, Normal ROM General lower extremity: Normal inspection, Normal color, Normal ROM. No: Edema - Neurological Neuro grossly intact: Yes Cognition: Normal Shahida Coma Scale Eye Opening: Spontaneous Shahida Coma Scale Verbal: Oriented Shahida Coma Scale Motor: Obeys Commands [place] Coma Scale Total: 15 - Psychological Associated symptoms: Normal affect, Normal mood - Skin Skin Temperature: Warm Skin Moisture: Dry Skin Color: Normal Course - Re-evaluation Re-evalutation: 06/23/18 09:30 Son is at bedside with patient. Patient reports that she has had headache and chest pain symptoms for the past week, son is at the bedside and is concerned that this may not be the truth and reports that patient does have a history of dementia as he feels that if she had chest pain earlier they would have sent her here sooner to be evaluated. 06/23/18 10:04 Patient reports some improvement of her headache pain, patient continues to complain of chest tightness at this time. 06/23/18 10:45 Patient denies any chest pain or headache symptoms at this time. Consulted with Dr. Cox regarding patient presentation and diagnostic evaluation. Agrees with plan to treat UTI and obtain repeat troponin. 06/23/18 12:50 Patient states that she is feeling good at this time. Patient denies any chest discomfort headache or dizziness symptoms. Patient denies any nausea or vomiting. Urine culture will be obtained. Patient without any findings worrisome for acute ME. Patient has had symptoms for the past week with no elevation in her delta troponin. Consulted again with Dr. Cox regarding patient's evaluation and status at this time. Agrees with plan for discharge and treatment for UTI. The patient has atypical chest pain as the patient's chest pain is not suggestive of pulmonary embolus, cardiac ischemia, aortic dissection, or other serious etiology. Given the extremely low risk of these diagnoses for the test in evaluation for these possibilities does not appear to be indicated at this time. The patient presents with headache without signs of COMPLETION ENGINEER bleed, stroke, infection, or other serious etiology. The patient is neurologically intact. Given the extremely low risk of these diagnoses further testing and evaluation for these possibilities does not appear to be indicated at this time. The patient has been instructed to return if the symptoms worsen or change in any way. - Vital Signs Vital signs: Temp Pulse Resp BP Pulse Ox 97.8 F 71 22 H 185/95 H 99 06/23/18 15:05 06/23/18 15:05 06/23/18 15:05 06/23/18 15:05 06/23/18 15:05 - Laboratory Result Diagrams: 06/23/18 08:45 06/23/18 08:45 Laboratory results interpreted by me: 06/23/18 06/23/18 06/23/18 08:45 08:45 10:00 RDW 14.7 H Seg Neutrophils % 78.2 H Sodium 136.5 L Alkaline Phosphatase 136 H Urine Blood SMALL H Ur Leukocyte Esterase TRACE H - Diagnostic Test Radiology reviewed: Image reviewed, Reports reviewed - EKG Interpretation by Ia EKG shows normal: Sinus rhythm Rate: Normal Voltage: Increased voltage Discharge - Discharge Clinical Impression: Anxiety Headache Qualifiers: Headache type: unspecified Headache chronicity pattern: unspecified pattern Intractability: not intractable Qualified Code(s): R51 - Headache UTI (urinary tract infection) Qualifiers: Urinary tract infection type: site unspecified Hematuria presence: with hematuria Qualified Code(s): N39.0 - Urinary tract infection, site not specified Upper respiratory infection Qualifiers: URI type: unspecified URI Qualified Code(s): J06.9 - Acute upper respiratory infection, unspecified Chest pain Qualifiers: Chest pain type: unspecified Qualified Code(s): R07.9 - Chest pain, unspecified Condition: Stable Disposition: SNF-Other Instructions: Acetaminophen, Anxiety ([facility]), Cephalexin ([facility]), Chest Pain of Unclear Cause ([facility]), Headache ([facility]), Upper Respiratory Illness ([facility]), Urinary T ract Infection ([facility]) Additional Instructions: Return immediately for any new or worsening symptoms Followup with your primary care provider, call tomorrow to make a followup appointment Urine culture is pending, we will call if you need any different treatment Prescriptions: Cephalexin Monohydrate [Keflex 500 mg Capsule] 500 mg PO BID 5 Days capsule Referrals: JANESSA ALVARADO MD [EMERITUS] - Follow up tomorrow
[2018-06-23 09:32] LABS: LIPASE 102.7 U/L (23-300)
[2018-06-23 09:43] LABS: CREATINE KINASE MB 0.51 ng/mL (<4.55)
[2018-06-23 09:44] LABS: TROPONIN I < 0.012 ng/mL
[2018-06-23 09:48] LABS: ALANINE AMINOTRANSFERASE 22 U/L (9-52); ALBUMIN 3.9 g/dL (3.5-5.0); ALKALINE PHOSPHATASE 136 U/L (38-126); ANION GAP 11 (5-19); ASPARTATE AMINO TRANSFERASE 23 U/L (14-36); BILIRUBIN,DIRECT 0.3 mg/dL (0.0-0.4); BILIRUBIN,TOTAL 0.6 mg/dL (0.2-1.3); BLOOD UREA NITROGEN 14 mg/dL (7-20); CALCIUM 9.3 mg/dL (8.4-10.2); CARBON DIOXIDE 27 mmol/L (22-30); CHLORIDE 99 mmol/L (98-107); GLUCOSE 101 mg/dL (75-110); POTASSIUM 3.8 mmol/L (3.6-5.0); SODIUM 136.5 mmol/L (137-145); TOTAL PROTEIN 7.5 g/dL (6.3-8.2)
--- NOTE | 2018-06-23 09:55 | RADIOLOGY REPORT (SQ) ---
EXAM DESCRIPTION: CT HEAD WITHOUT COMPLETED DATE/TIME: 06/23/2018 9:48 am REASON FOR STUDY: GOMEZ, htn COMPARISON: 02/04/2018 TECHNIQUE: Axial images acquired through the brain without intravenous contrast. Images reviewed wi th bone, brain and subdural windows. Additional sagittal and coronal reconstructions were generated. Images stored on PACS. All CT scanners at this facility use dose modulation, iterative reconstruction, and/or weight based d osing when appropriate to reduce radiation dose to as low as reasonably achievable (ALARA). [facility]: Dose Right [facility]: CareDose [facility]: Dose Right [facility]: Teradose 4D [facility]: Smart Vapotherm RADIATION DOSE: CT Rad equipment meets quality standard of care and radiation dose reduction techniq ues were employed. CTDIvol: 53.2 mGy. DLP: 1017 mGy-cm. mGy. LIMITATIONS: None. FINDINGS: VENTRICLES: Normal size and contour. CEREBRUM: No masses. No hemorrhage. No midline shift. No evidence for acute infarction. Extensive areas of low density in the white matter most likely chronic small vessel ischemic changes. CEREBELLUM: No masses. No hemorrhage. No alteration of density. No evidence for acute infarction. EXTRAAXIAL SPACES: No fluid collections. No masses. ORBITS AND GLOBE: No intra- or extraconal masses. Normal contour of globe without masses. CALVARIUM: No fracture. PARANASAL SINUSES: No fluid or mucosal thickening. SOFT TISSUES: No mass or hematoma. OTHER: No other significant finding. IMPRESSION: No acute intracranial pathology. Advanced small vessel white matter disease. EVIDENCE OF ACUTE STROKE: NO. COMMENT: Quality ID # [id number]: Final reports with documentation of one or more dose reduction techniques (e.g., Automated exposure control, adjustment of the mA and/or kV according to patient size, use of iterative reconstruction technique) TECHNICAL DOCUMENTATION: JOB ID: [id number] [employer]- All Rights Reserved Reading location - IP/workstation name: [email or web address]
[2018-06-23] MEDS ORDERED: ASPIRIN 81 MG TABLET, CHEWABLE PO ONE (09:58)
--- NOTE | 2018-06-23 09:59 | RADIOLOGY REPORT (SQ) ---
EXAM DESCRIPTION: CHEST 2 VIEWS COMPLETED DATE/TIME: 06/23/2018 9:53 am REASON FOR STUDY: cp COMPARISON: 01/13/2018 EXAM PARAMETERS: NUMBER OF VIEWS: two views TECHNIQUE: Digital Frontal and Lateral radiographic views of the chest acquired. RADIATION DOSE: NA LIMITATIONS: none FINDINGS: LUNGS AND PLEURA: Mild, diffuse bilateral interstitial pulmonary opacity. MEDIASTINUM AND HILAR STRUCTURES: No masses or contour abnormalities. HEART AND VASCULAR STRUCTURES: Heart normal size. No evidence for failure. BONES: No acute findings. HARDWARE: None in the chest. OTHER: No other significant finding. IMPRESSION: Mild, diffuse bilateral interstitial pulmonary opacity, which may reflect pulmonary love a or atypical/viral infection. No focal airspace opacity. TECHNICAL DOCUMENTATION: JOB ID: [id number] [employer]- All Rights Reserved Reading location - IP/workstation name: [email or web address]
[2018-06-23] MEDS ORDERED: CLONAZEPAM 1 MG TABLET PO ONE (10:02)
[2018-06-23 10:36] LABS: APPEARANCE,URINE CLEAR; BILIRUBIN,URINE NEGATIVE (NEGATIVE); COLOR,URINE YELLOW; GLUCOSE, URINE NEGATIVE (NEGATIVE); KETONES,URINE NEGATIVE (NEGATIVE); LEUKOCYTE ESTERASE,URINE TRACE (NEGATIVE); NITRITE,URINE NEGATIVE (NEGATIVE); PROTEIN,URINE NEGATIVE (NEGATIVE); URINE SPECIFIC GRAVITY 1.014; UROBILINOGEN,URINE NEGATIVE mg/dL (<2.0)
[2018-06-23] MEDS ORDERED: CEFTRIAXONE 1 GM/D5W RTU 1 GM/50 ML RTUPB IV ONE (10:46)
[2018-06-23 15:06] VITALS: BP 185/95
--- NOTE | 2018-06-23 21:23 | EKG REPORT ---
SEVERITY:- ABNORMAL ECG - SINUS RHYTHM LEFT VENTRICULAR HYPERTROPHY : Confirmed by: Angelina Marinelli MD 23-Jun-2018 21:22:49
== END 2018-06-23 15:06 ==
LOC: ER 08:25
DX: N39.0 Urinary tract infection, site not specified (principal); F41.9 Anxiety disorder, unspecified; J06.9 Acute upper respiratory infection, unspecified; R07.89 Other chest pain; R31.9 Hematuria, unspecified; R51 Headache; R11.0 Nausea; I25.10 Atherosclerotic heart disease of native coronary artery without angina pectoris; I10 Essential (primary) hypertension; Z85.3 Personal history of malignant neoplasm of breast; Z95.5 Presence of coronary angioplasty implant and graft; Z87.891 Personal history of nicotine dependence
CPT/HCPCS: 93005; 99285; 96365; 36415; 82553; 82550; 83690; 83735; 85025; 80053; 81001; 84484; 83880; 71046; 70450; 93010; A9270 ×4; J0696

== ENCOUNTER 2019-01-29 18:57 | Emergency (ER) | payer MEDICARE, MEDICAID ==
[2019-01-29 19:32] LABS: VENOUS BLOOD BASE EXCESS -1.9 mmol/L; VENOUS BLOOD HCO3 23.7 mmol/L (20-32); VENOUS BLOOD PCO2 43.6 mmHg (35-63); VENOUS BLOOD PH 7.35 (7.30-7.42)
[2019-01-29 19:35] LABS: HEMATOCRIT 36.5 % (36.0-47.0); HEMOGLOBIN 12.4 g/dL (12.0-15.5); MEAN CORPUSCULAR HEMOGLOBIN 29.3 pg (27.0-33.4); MEAN CORPUSCULAR VOLUME 86 fl (80-97); PLATELET COUNT 323 10^3/uL (150-450); RED BLOOD COUNT 4.24 10^6/uL (3.72-5.28); RED CELL DISTRIBUTION WIDTH 14.1 % (11.5-14.0); WHITE BLOOD COUNT 9.8 10^3/uL (4.0-10.5)
[2019-01-29 20:01] LABS: ABSOLUTE LYMPHOCYTES# (MANUAL) 0.5 10^3/uL (0.5-4.7); ABSOLUTE MONOCYTES # (MANUAL) 0.1 10^3/uL (0.1-1.4); ANISOCYTOSIS SLIGHT; BASOPHILS % (MANUAL) 0 % (0-2); EOSINOPHILS % (MANUAL) 1 % (0-6); LYMPHOCYTES % (MANUAL) 5 % (13-45); MONOCYTES % (MANUAL) 1 % (3-13); SEGMENTED NEUTROPHILS % (MAN) 93 % (42-78); TOTAL CELLS COUNTED 100
[2019-01-29 20:02] LABS: PLATELET COMMENT ADEQUATE
[2019-01-29] MEDS ORDERED: ONDANSETRON HCL INJ/PF 4 MG/2 ML SDV IV ONE (20:22)
--- NOTE | 2019-01-29 20:35 | ER Document Report ---
ED General - General Chief Complaint: Dizziness Stated Complaint: DIZZINESS Time Seen by Provider: 01/29/19 20:07 Primary Care Provider: JANESSA ALVARADO MD [Primary Care Provider] - Follow up as needed TRAVEL OUTSIDE OF THE [place] IN LAST 30 DAYS: No - HPI Notes: Patient is a 78-year-old female sent in from the [facility] facility. Patient is a poor historian, the majority of the history is obtained from her son. Evidently he was contacted day, stating that the patient had shaking chills and was not feeling well. The patient states she did have emesis x1. She denies any pain a t this time, states she still does have some nausea. She denies any recent cough. States her bowel movements have been normal. She denies any other acute complaints or concerns. - Related Data Allergies/Adverse Reactions: No Known Allergies Allergy (Verified 06/23/18 10:50) Home Medications: Aripiprazole 5 mg daily, atorvastatin 40 mg daily, donepezil 10 mg daily, ferrous sulfate 325 mill grams daily, Yuni 180 mg daily, fluticasone 50 mcg 2 sprays in each nostril daily, Synthroid 50 mcg daily, lisinopril 10 mill grams daily, gastral 40 mg twice daily, Myrbetriq 50 mg every other day, omeprazole 20 mg daily, potassium gluconate 99 mg every other day, Seroquel 50 mg daily, Zoloft 25 mill grams daily, Bactrim DS 1 tab twice a day for 10 days, originating on January 27, vitamin D3 at thousand units every other day Past Medical History - General Information source: Patient, Relative, Outside Facility Records Cannot obtain history due to: Dementia - Social History Smoking Status: Never Smoker Family History: Reviewed & Not Pertinent, CVA, Hyperlipidemia, Hypertension, Malignancy, Thyroid Disfunction Patient has suicidal ideation: No Patient has homicidal ideation: No - Past Medical History Cardiac Medical History: Reports: Hx Coronary Artery Disease, Hx Hyperchole sterolemia, Hx Hypertension Denies: Hx Atrial Fibrillation, Hx Congestive Heart Failure, Hx Heart Attack Pulmonary Medical History: Reports: Hx Intubation Denies: Hx Asthma, Hx Bronchitis, Hx COPD, Hx Pneumonia, Hx Tuberculosis Neurological Medical History: Denies: Hx Seizures Endocrine Medical History: Reports: Hx Hypothyroidism Renal/ Medical History: Denies: Hx Peritoneal Dialysis Malignancy Medical History: Reports: Hx Breast Cancer GI Medical History: Reports: Hx Gastroesophageal Reflux Disease. Denies: Hx Hiatal Hernia, Hx Ulcer Musculoskeletal Medical History: Denies Hx Arthritis, Denies Hx Systemic Lupus Erythematosus Psychiatric Medical History: Reports: Hx Anxiety, Hx Dementia, Hx Depression Denies: Hx Bipolar Disorder, Hx Schizophrenia Past Surgical History: Reports: Hx Cardiac Surgery - stents, Hx Cholecystectomy. Denies: Hx Appendectomy, Hx Bowel Surgery, Hx Section, Hx Hysterectomy, Hx Mastectomy, Hx Tonsillectomy, Hx Tubal Ligation - Immunizations Immunizations up to date: Yes Hx Diphtheria, Pertussis, Tetanus Vaccination: Yes Hx Pneumococcal Vaccination: 03/30/11 Review of Systems - Review of Systems Constitutional: See HPI EENT: No symptoms reported Cardiovascular: No symptoms reported Respiratory: No symptoms reported Gastrointestinal: See HPI Genitourinary: No symptoms reported Female Genitourinary: No symptoms reported Musculoskeletal: No symptoms reported Skin: No symptoms reported Neurological/Psychological: No symptoms reported Physical Exam - Vital signs Vitals: Temp Resp BP Pulse Ox 99.4 F 22 H 147/83 H 97 01/29/19 19:03 01/29/19 19:03 01/29/19 19:03 01/29/19 19:03 - Notes Notes: Vital signs reviewed, please refer to chart. Head is normocephalic, atraumatic. Pupils equal round, reactive to light. Neck is supple without meningismus. Heart is regular rate and rhythm. Lungs are clear to auscultation bilaterally. Abdomen is soft, nontender, normoactive bowel sounds throughout. Extremities without cyanosis, clubbing. Posterior calves are nontender. Peripheral pulses are equal. Skin is warm and dry. Patient is awake, alert, oriented to person and place but disoriented to time. She moves all 4 extremities spontaneously. No gross facial asymmetry. Course - Re-evaluation Re-evalutation: 01/29/19 20:34 Patient presents emergency department for evaluation. On arrival EMS found her to be febrile, she was treated with Tylenol. She was tachycardic. Zofran given for nausea. IV fluids ordered, but her ejection fraction was found to be 20 to 25% on an echocardiogram of proximal he 5 years ago. Her heart rate is now in the 90s. We will treat with a 1 L bolus, continue to monitor. 01/29/19 21:56 Laboratory investigations are found to be unremarkable. Patient is feeling significantly improved. Her heart rate is currently 71, she is 98% on room air. Her blood pressures in the 120s systolic. On review of her records it seems that she is been taking Bactrim, got her first dose in the evening on January 27 . My suspicion is that she has a urinary tract infection that is already been partially treated. I reviewed past urine cultures, and as a result decided to give her a gram of Rocephin. I believe that she is already being treated appropriately. She has no significant leukocytosis, her lactate is normal. She is feeling improved. I believe that continued outpatient treatment with Bactrim is appropriate at this time. Certainly if her temperature rises again, she needs to be brought immediately to the emergency department for further evaluation. Blood cultures are pending. Patient and son voiced understanding. She is to return to the ED with worsening. - Vital Signs Vital signs: Temp Pulse Resp BP Pulse Ox 99.4 F 18 124/66 97 01/29/19 19:03 01/29/19 21:01 01/29/19 21:01 01/29/19 21:01 - Laboratory Result Diagrams: 01/29/19 19:07 01/29/19 19:07 Laboratory results interpreted by me: 01/29/19 01/29/19 01/29/19 19:07 19:07 19:51 RDW 14.1 H Seg Neuts % (Manual) 93 H Lymphocytes % (Manual) 5 L Monocytes % (Manual) 1 L Abs Neuts (Manual) 9.1 H Creatinine 1.36 H Est GFR ( Amer) 46 L Est GFR (MDRD) Non-Af 38 L Glucose 135 H Urine Protein 100 H Urine Urobilinogen 4.0 H Ur Leukocyte Esterase TRACE H - Diagnostic Test Radiology reviewed: Reports reviewed - EKG Interpretation by Me Additional EKG results interpreted by me: 01/29/19 20:37 Sinus rhythm rate 98 bpm. Normal axis and intervals. Nonspecific ST changes, but no acute changes concerning for ischemia or infarction. No significant change compared to prior study of June 23, 2018 Discharge - Discharge Clinical Impression: Nausea Urinary tract infection Qualifiers: Urinary tract infection type: site unspecified Hematuria presence: without hematuria Qualified Code(s): N39.0 - Urinary tract infection, site not specified Fever Qualifiers: Encounter type: initial encounter Condition: Stable Disposition: HOME-ASSISTED LIVING Instructions: Trimethoprim-Sulfa ([facility]), Urinary Tract Infection ([facility]) Additional Instructions: There is still some lingering signs of urinary tract infection at this time, you are given a dose of IV Rocephin. Her laboratory investigations are largely unremarkable. You are receiving Zofran to go home with, as needed for nausea. Continue the Bactrim as you had already been prescribed. If you develop a fever, vomiting, or any other new or concerning symptoms, please return immediately to the emergency department for reevaluation. Referrals: JANESSA ALVARADO MD [Primary Care Provider] - Follow up as needed
[2019-01-29] MEDS ORDERED: NORMAL SALINE 1000 ML 1,000 ML IV ONE (20:37)
[2019-01-29 20:53] LABS: APPEARANCE,URINE SLIGHTLY-CLOUDY; BILIRUBIN,URINE NEGATIVE (NEGATIVE); COLOR,URINE YELLOW; GLUCOSE, URINE NEGATIVE (NEGATIVE); KETONES,URINE NEGATIVE (NEGATIVE); LEUKOCYTE ESTERASE,URINE TRACE (NEGATIVE); NITRITE,URINE NEGATIVE (NEGATIVE); PROTEIN,URINE 100 mg/dL (NEGATIVE); URINE SPECIFIC GRAVITY 1.027
[2019-01-29 20:59] LABS: ADD MANUAL MICROSCOPIC YES
[2019-01-29 21:03] LABS: ALBUMIN 3.9 g/dL (3.5-5.0); ANION GAP 14 (5-19); BLOOD UREA NITROGEN 16 mg/dL (7-20); CALCIUM 8.9 mg/dL (8.4-10.2); CARBON DIOXIDE 22 mmol/L (22-30); CHLORIDE 102 mmol/L (98-107); GLUCOSE 135 mg/dL (75-110)
[2019-01-29 21:04] LABS: ALKALINE PHOSPHATASE 123 U/L (38-126); ASPARTATE AMINO TRANSFERASE 15 U/L (14-36); BILIRUBIN,DIRECT 0.1 mg/dL (0.0-0.4); BILIRUBIN,TOTAL 0.5 mg/dL (0.2-1.3); TOTAL PROTEIN 7.6 g/dL (6.3-8.2)
--- NOTE | 2019-01-29 21:09 | RADIOLOGY REPORT (SQ) ---
EXAM DESCRIPTION: XR CHEST 2 VIEWS COMPLETED DATE/TME: 01/29/2019 20:15 CLINICAL HISTORY: fever and chills COMPARISON: None FINDINGS: Cardiac silhouette is within normal limits. Aorta is tortuous. There is atherosclerosis. EKG leads project over the chest. There is no focal parenchymal or pleural disease. There is no acute osseous process visualized. IMPRESSION: No evidence of acute cardiopulmonary disease.
[2019-01-29] MEDS ORDERED: ONDANSETRON ODT 4 MG TAB (6 TAB/ER DISP) PO PRN (21:59)
[2019-01-29] MEDS ORDERED: CEFTRIAXONE 1 GM/D5W RTU 1 GM/50 ML RTUPB IV ONE (22:00)
[2019-01-29 22:37] VITALS: BP 134/68
--- NOTE | 2019-01-30 01:08 | EKG REPORT ---
SEVERITY:- ABNORMAL ECG - SINUS RHYTHM PROBABLE LEFT ATRIAL ABNORMALITY PROBABLE LEFT VENTRICULAR HYPERTROPHY : Confirmed by: Waylon Bragg MD 30-Jan-2019 01:06:56
== END 2019-01-29 22:37 | disposition home health service (06) ==
LOC: ER 18:57
DX: N39.0 Urinary tract infection, site not specified (principal); R11.0 Nausea; R42 Dizziness and giddiness; I25.10 Atherosclerotic heart disease of native coronary artery without angina pectoris; E78.00 Pure hypercholesterolemia, unspecified; I10 Essential (primary) hypertension; Z90.49 Acquired absence of other specified parts of digestive tract
CPT/HCPCS: 36415; 87040; 87086; 85025; 80053; 81001; 84484; 82803; 83605; 71046; 93005; 93010; J2405; J7030; J0696; A9270

== ENCOUNTER 2019-02-10 17:09 | Emergency (ER) | payer MEDICARE, OTHER, MEDICAID ==
[2019-02-10] MEDS ORDERED: LIDOCAINE 1% INJ-PF (10 MG/ML) 30 ML SDV INJ ONE (17:56)
--- NOTE | 2019-02-10 17:58 | ER Document Report ---
ED Extremity Problem, Lower - General Chief Complaint: Fall Injury Stated Complaint: RIGHT LEG PAIN Time Seen by Provider: 02/10/19 17:55 Primary Care Provider: JANESSA ALVARADO MD [Primary Care Provider] - Follow up as needed Mode of Arrival: Stretcher Information source: Patient, Emergency Med Personnel, [facility] Records Cannot obtain history due to: Dementia Notes: Patient fell at the [facility] suffering a laceration to the right lateral lower leg. She does have dementia and is a poor historian. TRAVEL OUTSIDE OF THE [place] IN LAST 30 DAYS: No - Related Data Allergies/Adverse Reactions: No Known Allergies Allergy (Verified 06/23/18 10:50) Past Medical History - General Information source: Patient, Emergency Med Personnel, [facility] Records Cannot obtain history due to: Dementia - Social History Smoking Status: Never Smoker Cigarette use (# per day): No Chew tobacco use (# tins/day): No Smoking Education Provided: No Frequency of alcohol use: None Drug Abuse: None Lives with: Custodial Family History: Reviewed & Not Pertinent, CVA, Hyperlipidemia, Hypertension, Malignancy, Thyroid Disfunction Patient has suicidal ideation: No Patient has homicidal ideation: No - Past Medical History Cardiac Medical History: Reports: Hx Coronary Artery Disease, Hx Hypercholesterolemia, Hx Hypertension Pulmonary Medical History: Reports: Hx Intubation Endocrine Medical History: Reports: Hx Hypothyroidism Malignancy Medical History: Reports: Hx Breast Cancer GI Medical History: Reports: Hx Gastroesophageal Reflux Disease Psychiatric Medical History: Reports: Hx Anxiety, Hx Dementia, Hx Depression Past Surgical History: Reports: Hx Cardiac Catheterization, Hx Cholecystectomy, Hx Coronary Stent - Immunizations Immunizations up to date: Yes Hx Diphtheria, Pertussis, Tetanus Vaccination: Yes Hx Pneumococcal Vaccination: 03/30/11 Review of Systems - Review of Systems Constitutional: No symptoms reported EENT: No symptoms reported Cardiovascular: No symptoms reported Respiratory: No symptoms reported Gastrointestinal: No symptoms reported Genitourinary: No symptoms reported Female Genitourinary: Post menopausal Musculoskeletal: No symptoms reported Skin: No symptoms reported Hematologic/Lymphatic: No symptoms reported Neurological/Psychological: Dementia Physical Exam - Vital signs Vitals: Temp Pulse Resp BP Pulse Ox 99.0 F 92 16 138/76 H 96 02/10/19 17:22 02/10/19 17:22 02/10/19 17:22 02/10/19 17:22 02/10/19 17:22 - General General appearance: Appears well, Alert In distress: None - HEENT Head: Normocephalic, Atraumatic Eyes: Normal Pupils: PERRL - Respiratory Respiratory status: No respiratory distress Breath sounds: Normal - Cardiovascular Rhythm: Regular Heart sounds: Normal auscultation Murmur: No - Abdominal Inspection: Normal Bowel sounds: Normal Tenderness: Nontender - Back Back: Normal - Extremities General upper extremity: Normal inspection General lower extremity: Other - Right lateral lower leg has a right ankle laceration measuring 3 x 3 cm which forms a flap that goes into the deep subcutaneous tissue. The laceration is oriented in a transverse and longitudinal direction. - Neurological Neuro grossly intact: Yes - Psychological Associated symptoms: Normal affect, Normal mood, Other - Dementia - Skin Skin Temperature: Warm Skin Moisture: Dry Skin Color: Normal Course - Re-evaluation Re-evalutation: 02/10/19 19:23 The patient's son came to visit and provided me with some history. Her spouse normally rooms with her at the Alzheimer related care unit. He recently had a small cut get infected with MRSA and is now at [facility] due to this infection. Because of this MRSA in her spouse who was also her roommate, I will place her on Septra DS for the next 5 days as a preventative treatment. - Vital Signs Vital signs: Temp Pulse Resp BP Pulse Ox 98.1 F 79 20 136/81 H 94 02/10/19 23:00 02/10/19 23:00 02/10/19 23:00 02/10/19 23:00 02/10/19 23:00 - Laboratory Laboratory results interpreted by me: 02/10/19 18:44 Urine Protein 30 H Urine Blood SMALL H Ur Leukocyte Esterase TRACE H Procedures - Laceration/Wound Repair Right Lower Leg Wound length (cm): 6 Wound's Depth, Shape: Superficial, Flap Laceration pre-procedure: Sterile drapes applied, Shur-Clens applied Anesthetic type: 1% Lidocaine Volume Anesthetic (mLs): 15 Wound explored: Clean, No foreign body removed Irrigated w/ Saline (mLs): 30 Wound Debrided: Minimal Wound Repaired With: Sutures Suture Size/Type: 3:0, Ethilon - The flap was approximated using 7 simple sutures, and 3 widely placed mattress sutures to pull the flap into place and keep the tension off of the simple sutures along the skin edges. Layer Closure?: No Post-procedure wound care: Sterile dressing applied Post-procedure NV exam normal: Yes Complications: No Discharge - Discharge Clinical Impression: Laceration of lower leg Qualifiers: Encounter type: initial encounter Laterality: right Qualified Code(s): S81.811A - Laceration without foreign body, right lower leg, initial encounter Fall Qualifiers: Encounter type: initial encounter Qualified Code(s): W19.XXXA - Unspecified fall, initial encounter Condition: Stable Disposition: HOME-SNF (ED ONLY) Additional Instructions: Laceration Care Your laceration has been sutured to keep the skin edges aligned during healing. The time of suture removal depends on the nature and location of your cut. Please follow the care instructions the doctor has outlined for you and return for further care, according to the schedule you've been given. Keep the wound and dressing clean. Unless you were told otherwise, you may shower daily, blotting the wound dry with a clean, unused towel. At other times, If the dressing gets wet or blood soaked, remove it and blot the wound dry, then reapply a new dressing. Unless you were instructed otherwise, dressings should be changed at least daily. If any signs of infection occur (swelling, redness, increasing tenderness, red streaks, tender lumps in the armpit or groin above the laceration, or fever), see the doctor immediately. Keep the wound clean and dressed. Elevate your leg is much as possible. Take the medications as prescribed. Return to the emergency room and 10 days for suture removal. Return sooner if any signs of infection. RETURN TO THE EMERGENCY ROOM IF ANY NEW OR WORSENING SYMPTOMS. Referrals: JANESSA ALVARADO MD [Primary Care Provider] - Follow up as needed
[2019-02-10 19:01] LABS: APPEARANCE,URINE SLIGHTLY-CLOUDY; BILIRUBIN,URINE NEGATIVE (NEGATIVE); COLOR,URINE YELLOW; GLUCOSE, URINE NEGATIVE (NEGATIVE); KETONES,URINE NEGATIVE (NEGATIVE); LEUKOCYTE ESTERASE,URINE TRACE (NEGATIVE); NITRITE,URINE NEGATIVE (NEGATIVE); PROTEIN,URINE 30 mg/dL (NEGATIVE); URINE SPECIFIC GRAVITY 1.027; UROBILINOGEN,URINE NEGATIVE mg/dL (<2.0)
[2019-02-10] MEDS ORDERED: SULFAMETHOXAZOLE/TRIMETHOPRIM 800-160 MG TABLET PO ONE ×2 (19:20→22:00)
[2019-02-10 23:56] VITALS: BP 136/81
== END 2019-02-10 23:56 ==
LOC: ER 17:09
DX: S81.811A Laceration without foreign body, right lower leg, initial encounter (principal); M79.604 Pain in right leg; F03.90 Unspecified dementia, unspecified severity, without behavioral disturbance, psychotic disturbance, mood disturbance, and anxiety; W19.XXXA Unspecified fall, initial encounter; Y92.129 Unspecified place in nursing home as the place of occurrence of the external cause; I25.10 Atherosclerotic heart disease of native coronary artery without angina pectoris; E78.00 Pure hypercholesterolemia, unspecified; I10 Essential (primary) hypertension; E03.9 Hypothyroidism, unspecified; Z85.3 Personal history of malignant neoplasm of breast; Z90.49 Acquired absence of other specified parts of digestive tract
CPT/HCPCS: 99284; 81001; 12002; J3490; A9270

== ENCOUNTER 2019-02-11 09:50 | Inpatient (IN) | payer MEDICARE, OTHER, MEDICAID ==
[2019-02-11 10:42] LABS: HEMOGLOBIN 11.3 g/dL (12.0-15.5); MEAN CORPUSCULAR HEMOGLOBIN 28.7 pg (27.0-33.4); MEAN CORPUSCULAR HGB CONC 33.2 g/dL (32.0-36.0); MEAN CORPUSCULAR VOLUME 86 fl (80-97); PLATELET COUNT 428 10^3/uL (150-450); RED BLOOD COUNT 3.94 10^6/uL (3.72-5.28); RED CELL DISTRIBUTION WIDTH 14.4 % (11.5-14.0); WHITE BLOOD COUNT 20.3 10^3/uL (4.0-10.5)
[2019-02-11 10:57] LABS: ALBUMIN 3.8 g/dL (3.5-5.0); ALKALINE PHOSPHATASE 216 U/L (38-126); ANION GAP 17 (5-19); ASPARTATE AMINO TRANSFERASE 99 U/L (14-36); BILIRUBIN,DIRECT 0.5 mg/dL (0.0-0.4); BILIRUBIN,TOTAL 0.9 mg/dL (0.2-1.3); BLOOD UREA NITROGEN 19 mg/dL (7-20); CALCIUM 9.6 mg/dL (8.4-10.2); CARBON DIOXIDE 21 mmol/L (22-30); CHLORIDE 105 mmol/L (98-107); CREATINE KINASE 78 U/L (30-135); GLUCOSE 112 mg/dL (75-110); POTASSIUM 4.2 mmol/L (3.6-5.0); TOTAL PROTEIN 8.2 g/dL (6.3-8.2)
[2019-02-11 11:09] LABS: CREATINE KINASE MB 0.32 ng/mL (<4.55); TROPONIN I < 0.012 ng/mL
[2019-02-11 11:27] LABS: ABSOLUTE MONOCYTES # (MANUAL) 0.4 10^3/uL (0.1-1.4); BAND NEUTROPHILS % (MANUAL) 7 % (3-5); BASOPHILS % (MANUAL) 1 % (0-2); EOSINOPHILS % (MANUAL) 0 % (0-6); LYMPHOCYTES % (MANUAL) 0 % (13-45); MONOCYTES % (MANUAL) 2 % (3-13); SEGMENTED NEUTROPHILS % (MAN) 90 % (42-78); TOTAL CELLS COUNTED 100
[2019-02-11 11:28] LABS: ANISOCYTOSIS SLIGHT; OVALOCYTES SLIGHT; PLATELET COMMENT INCREASED; SCHISTOCYTES SLIGHT
[2019-02-11] MEDS ORDERED: CEFTRIAXONE 1 GM/D5W RTU 1 GM/50 ML RTUPB IV ONE (12:18)
[2019-02-11] MEDS ORDERED: CEFTRIAXONE 1 GM/D5W RTU 0 GM/0 ML RTUPB IV ONE (12:24)
--- NOTE | 2019-02-11 12:42 | ER Document Report ---
ED General - General Chief Complaint: Chest Pain Stated Complaint: CHEST PAIN Time Seen by Provider: 02/11/19 12:17 Primary Care Provider: JANESSA ALVARADO MD [Primary Care Provider] - Follow up as needed TRAVEL OUTSIDE OF THE [place] IN LAST 30 DAYS: No - HPI Notes: Patient is a 78-year-old female with a history of dementia, hypertension, coronary disease, anxiety/depression who presents from [facility] with complaints of having sternal chest pain since yesterday that is been constant. Patient states that the pain does not radiate. She has no associated shortness of breath or trouble breathing. Patient did take a fall yesterday and states that her pain started thereafter. Pt did have a laceration to her rt leg that was repaired and was placed on bactrim as precaution with MRSA history. Patient states that she is otherwise eating and drinking without difficulty. She is urinating normally and having normal bowel movements. Patient states that she did not hit her head or lose consciousness. Denies any headache, fever, head injury, neck pain, changes in vision/speech/mentation/hearing, URI, sore throat, palpitations, syncope, cough, shortness of breath, wheeze, dyspnea, abdominal pain, nausea/vomiting/diarrhea, urinary retention, dysuria, hematuria, numbness/tingling, saddle anesthesia, muscle paralysis/weakness, or rash. Pt's history taken with 'grain of salt' as she responds appropriately, but is only A&Ox1 and denied any PMH that is listed in her chart. - Related Data Allergies/Adverse Reactions: No Known Allergies Allergy (Verified 06/23/18 10:50) Past Medical History - Social History Smoking Status: Unknown if Ever Smoked Family History: Reviewed & Not Pertinent, CVA, Hyperlipidemia, Hypertension, Malignancy, Thyroid Disfunction Patient has suicidal ideation: No Patient has homicidal ideation: No - Past Medical History Cardiac Medical History: Reports: Hx Coronary Artery Disease, Hx Hypercholesterolemia, Hx Hypertension Denies: Hx Atrial Fibrillation, Hx Congestive Heart Failure, Hx Heart Attack Pulmonary Medical History: Reports: Hx Intubation Denies: Hx Asthma, Hx Bronchitis, Hx COPD, Hx Pneumonia, Hx Tuberculosis Neurological Medical History: Denies: Hx Seizures Endocrine Medical History: Reports: Hx Hypothyroidism Renal/ Medical History: Denies: Hx Peritoneal Dialysis Malignancy Medical History: Reports: Hx Breast Cancer GI Medical History: Reports: Hx Gastroesophageal Reflux Disease. Denies: Hx Hiatal Hernia, Hx Ulcer Musculoskeletal Medical History: Denies Hx Arthritis, Denies Hx Systemic Lupus Erythematosus Psychiatric Medical History: Reports: Hx Anxiety, Hx Dementia, Hx Depression Denies: Hx Bipolar Disorder, Hx Schizophrenia Past Surgical History: Reports: Hx Cardiac Catheterization, Hx Cardiac Surgery - stents, Hx Cholecystectomy, Hx Coronary Stent. Denies: Hx Appendectomy, Hx Bowel Surgery, Hx Section, Hx Hysterectomy, Hx Mastectomy, Hx Tonsille ctomy, Hx Tubal Ligation - Immunizations Immunizations up to date: Yes Hx Diphtheria, Pertussis, Tetanus Vaccination: Yes Hx Pneumococcal Vaccination: 03/30/11 Review of Systems - Review of Systems -: Yes All other systems reviewed and negative Physical Exam - Vital signs Vitals: Resp Pulse Ox 33 H 96 02/11/19 09:58 02/11/19 09:58 - Notes Notes: PHYSICAL EXAMINATION: GENERAL: Well-appearing, well-nourished and in no acute distress. A&O to person, but not to place/time. HEAD: Atraumatic, normocephalic. EYES: Pupils equal round and reactive to light, extraocular movements intact, sclera anicteric, conjunctiva are normal. ENT: Nares patent and without discharge. oropharynx clear without exudates. No tonsilar hypertrophy or erythema. Moist mucous membranes. NECK: Normal range of motion, supple without lymphadenopathy LUNGS: Breath sounds clear to auscultation bilaterally and equal. No wheezes rales or rhonchi. HEART: Regular rate and rhythm without murmurs, rubs, gallops. ABDOMEN: Soft, nontender, nondistended abdomen. No guarding, no rebound. Normal bowel sounds present. No CVA tenderness bilaterally. Musculoskeletal: FROM to passive/active. Strength 5+/5. Beltran neg. No asymmetry to LE's. Extremities: No cyanosis, clubbing, or edema b/l. Peripheral pulses 2+. Capillary refill less than 3 seconds. NEUROLOGICAL: Normal speech. Cranial nerves grossly intact. PSYCH: flat affect, makes appropriate eye contact. SKIN: Warm, Dry, normal turgor, no rashes or lesions noted. Lac to rt LE s/p repair. Course - Re-evaluation Re-evalutation: 02/11/19 15:26 Patient is an afebrile, well-hydrated, 78-year-old female who presents with leukocytosis with bandemia as well as acute kidney injury and probable UTI. Vitals are currently acceptable. PE is otherwise unremarkable. Patient is nontoxic-appearing and is tolerating p.o. without difficulty. She is otherwise at baseline per family member with mentation and behavior. Patient was given fluids as well as Rocephin in the ED. See lab results. Urine culture is pending. I did review with Dr. Klely who has accepted patient for admission. Family/pt in agreement. - Vital Signs Vital signs: Temp Pulse Resp BP Pulse Ox 16 104/59 L 95 02/11/19 12:00 02/11/19 12:00 02/11/19 12:00 - Laboratory Result Diagrams: 02/11/19 10:05 02/11/19 10:05 Laboratory results interpreted by me: 02/11/19 02/11/19 02/11/19 10:05 10:05 13:08 WBC 20.3 H Hgb 11.3 L Hct 34.0 L RDW 14.4 H Seg Neuts % (Manual) 90 H Band Neutrophils % 7 H Lymphocytes % (Manual) 0 L Monocytes % (Manual) 2 L Abs Neuts (Manual) 19.7 H Abs Lymphs (Manual) 0.0 L Carbon Dioxide 21 L Creatinine 1.71 H Est GFR ( Amer) 35 L Est GFR (MDRD) Non-Af 29 L Glucose 112 H Direct Bilirubin 0.5 H AST 99 H Alkaline Phosphatase 216 H Urine Protein 100 H Urine Bilirubin SMALL H Urine Urobilinogen 2.0 H Ur Leukocyte Esterase TRACE H Urine Ascorbic Acid 20 H Discharge - Discharge Clinical Impression: Acute UTI (urinary tract infection), ANTONELLA (acute kidney injury) Leukocytosis Qualifiers: Leukocytosis type: bandemia Qualified Code(s): D72.825 - Bandemia Condition: Stable Disposition: ADMITTED INPATIENT Admitting Provider: Leticia (Hospitalist) Unit Admitted: Medical Floor Referrals: JANESSA ALVARADO MD [Primary Care Provider] - Follow up as needed
[2019-02-11] MEDS: NORMAL SALINE 1000 ML 1,000 ML IV PRN ×3 (12:46→22:50)
[2019-02-11 13:32] LABS: APPEARANCE,URINE CLOUDY; BILIRUBIN,URINE SMALL (NEGATIVE); COLOR,URINE AMBER; GLUCOSE, URINE NEGATIVE (NEGATIVE); KETONES,URINE NEGATIVE (NEGATIVE); LEUKOCYTE ESTERASE,URINE TRACE (NEGATIVE); NITRITE,URINE NEGATIVE (NEGATIVE); PROTEIN,URINE 100 mg/dL (NEGATIVE)
--- NOTE | 2019-02-11 14:33 | RADIOLOGY REPORT (SQ) ---
EXAM DESCRIPTION: CHEST SINGLE VIEW COMPLETED DATE/TIME: 02/11/2019 2:19 pm REASON FOR STUDY: cp COMPARISON: PA and lateral views of the chest from 01/29/2019. EXAM PARAMETERS: NUMBER OF VIEWS: One view. TECHNIQUE: Single frontal radiographic view of the chest acquired. RADIATION DOSE: NA LIMITATIONS: None. FINDINGS: LUNGS AND PLEURA: No consolidation, pleural effusion or pneumothorax. MEDIASTINUM AND HILAR STRUCTURES: No mediastinal or hilar contour abnormality. HEART AND VASCULAR STRUCTURES: The cardiac silhouette and pulmonary vasculature are within normal pavon its given the low inspiratory lung volumes. BONES: No acute findings. HARDWARE: None in the chest. OTHER: No other finding. IMPRESSION: No acute cardiopulmonary process. TECHNICAL DOCUMENTATION: JOB ID: [id number] [employer]- All Rights Reserved Reading location - IP/workstation name: [email or web address]
[2019-02-11] MEDS ORDERED: MAG HYDROX/AL HYDROX/SIMETH SUSP 30 ML UDCUP PO PRN (17:16)
[2019-02-11] MEDS ORDERED: ACETAMINOPHEN 650 MG SUPP.RECT PR PRN (17:16)
[2019-02-11] MEDS ORDERED: PROMETHAZINE HCL INJ 25 MG/1 ML VIAL IV PRN (17:16)
[2019-02-11] MEDS ORDERED: IPRATROPIUM/ALBUTEROL 0.5-2.5 MG/3 ML AMPUL NEB PRN (17:16)
[2019-02-11] MEDS ORDERED: NORMAL SALINE 1000 ML 1,000 ML IV PRN (17:16)
--- NOTE | 2019-02-11 17:16 | PDOC H&P ---
History of Present Illness Admission Date/PCP: 02/11/19 15:39 JANESSA ALVARADO MD Patient complains of: Nausea and vomiting. General unwellness. History of Present Illness: THEODORE ASKEW is a 78 year old female who is a patient of the [facility]. She has had a very difficult previous 2 weeks. She was actually in the [facility] emergency department 2 weeks ago and treated for UTI. Several days later she fell and hit her head at the [facility] and was sent to [facility] as a "trauma" patient. She was there for approximately a week. She was discharged on Thursday back to the ER. (yesterday) she fell and cut her leg and was treated at [facility]. She returned to the ER. Today she was experiencing nausea and vomiting as well as chest pain fever and chills. She was sent back from the ER to [place] for evaluation. Her white blood cell count is 20,000. She has a positive UA with a negative chest x-ray. She does have a lesion on her leg but there is no significant erythema noted. She is going to be admitted and worked up for possible focus of infection as well as IV fluids and general review of her wellbeing. Past Medical History Cardiac Medical History: Reports: Coronary Artery Disease, Hyperlipidema, Hypertension Denies: Atrial Fibrillation, Congestive Heart Failure, Myocardial Infarction Pulmonary Medical History: Reports: Intubation Denies: Asthma, Bronchitis, Chronic Obstructive Pulmonary Disease (COPD), Pneumonia, Tuberculosis Neurological Medical History: Denies: Seizures Endocrine Medical History: Reports: Hypothyroidism Malignancy Medical History: Reports: Breast Cancer GI Medical History: Reports: Gastroesophageal Reflux Disease Denies: Hiatal Hernia Musculoskeltal Medical History: Denies: Arthritis Psychiatric Medical History: Reports: Dementia, Depression Denies: Bipolar Disorder Traumatic Medical History: Reports: Traumatic Brain Injury - Fell and hit her head last week Hematology: Reports: Anemia Infectious Medical History: Reports: Other Infectious History Note: Receiving ivermectin for prophylaxis for possible scabies exposure at the [facility]. She has been on it for several weeks and is not contagious. Past Surgical History Past Surgical History: Reports: Cardiac Catheterization, Cholecystectomy, Coronary Stent Denies: Appendectomy, Section, Hysterectomy, Mastectomy, Tonsillectomy, Tubal Ligation Social History Information Source: Patient, Relative, [facility] Records Lives with: Other - Patient lives at the [facility]. Residents for memory loss patients. Smoking Status: Former Smoker Frequency of Alcohol Use: None Hx Recreational Drug Use: No Hx Prescription Drug Abuse: No - Advance Directive Resuscitation Status: Full Code Surrogate healthcare decision maker:: Her sons are the power of sports attorney. At this point they wish her to be full code. Family History Family History: Reviewed & Not Pertinent, CVA, Hyperlipidemia, Hypertension, Malignancy, Thyroid Disfunction Parental Family History Reviewed: Yes Children Family History Reviewed: Yes Sibling(s) Family History Reviewed.: Yes Medication/Allergy Home Medications: Cholecalciferol (Vitamin D3) [Vitamin D3 1000 Unit Tablet] 1,000 unit PO DAILY 02/11/19 Lanolin Alcohol/Mo/W.pet/[place] [Minerin Creme] 1 applic TP DAILY 02/11/19 Levothyroxine Sodium [Synthroid 50 Mcg Tablet] 50 mcg PO Q6AM 02/11/19 Lisinopril [Prinivil 10 mg Tablet] 10 mg PO DAILY 02/11/19 Megestrol Acetate [Megace 20 Mg Tablet] 40 mg PO Q12 02/11/19 Mirabegron [Myrbetriq] 50 mg PO DAILY 02/11/19 Nystatin [Mycostatin Topical Powder 15 gm] 1 applic TP DAILY MDD UNDER BREAST 02/11/19 Omeprazole 20 mg PO DAILY 02/11/19 Potassium Gluconate [Potassium] 99 mg PO DAILY 02/11/19 Quetiapine Fumarate [Seroquel] 75 mg PO QHS 02/11/19 Sertraline HCl [Zoloft] 25 mg PO DAILY 02/11/19 Tiotropium [place] [Spiriva Handihaler 5 Cap/Kit (18 Mcg/Cap)] 1 cap IH DAILY 02/11/19 Allergies/Adverse Reactions: No Known Allergies Allergy (Verified 06/23/18 10:50) Review of Systems Constitutional: PRESENT: anorexia, chills, fever(s) Eyes: ABSENT: visual disturbances Ears: ABSENT: hearing changes Nose, Mouth, and Throat: PRESENT: other - Lip sore.. ABSENT: headache(s), mouth pain, sore throat Cardiovascular: PRESENT: chest pain - Resolved. ABSENT: edema, palpitations Respiratory: ABSENT: cough, dyspnea, sputum Gastrointestinal: PRESENT: nausea, vomiting. ABSENT: abdominal pain, constipation, diarrhea Integumentary: PRESENT: wounds - Laceration right leg bandaged Neurological: PRESENT: memory loss Psychiatric: PRESENT: depression Endocrine: ABSENT: cold intolerance, heat intolerance Hematologic/Lymphatic: ABSENT: easy bruising, lymphadenopathy Allergic/Immunologic: ABSENT: seasonal rhinorrhea Physical Exam Vital Signs: Temp Pulse Resp BP Pulse Ox 16 104/59 L 95 02/11/19 12:00 02/11/19 12:00 02/11/19 12:00 Intake & Output 02/10/19 02/11/19 02/12/19 06:59 06:59 06:59 Intake Total 1000 Balance 1000 Weight 67.2 kg General appearance: PRESENT: cooperative, mild distress, well-developed Head exam: PRESENT: atraumatic, normocephalic Eye exam: PRESENT: conjunctiva pale, EOMI. ABSENT: scleral icterus Ear exam: PRESENT: normal external ear exam. ABSENT: bleeding, drainage Mouth exam: PRESENT: dry mucosa, other - Small ulceration on the lip Teeth exam: ABSENT: poor dentation Neck exam: ABSENT: carotid bruit, JVD, lymphadenopathy Respiratory exam: PRESENT: clear to auscultation miguel, symmetrical, unlabored. ABSENT: rales, rhonchi, tachypnea, wheezes Cardiovascular exam: PRESENT: RRR, +S1, +S2 GI/Abdominal exam: PRESENT: normal bowel sounds, soft. ABSENT: distended, guarding, tenderness Rectal exam: PRESENT: deferred Extremities exam: ABSENT: joint swelling, pedal edema Musculoskeletal exam: PRESENT: normal inspection. ABSENT: deformity Neurological exam: PRESENT: alert, awake, oriented to person, oriented to place, oriented to situation Psychiatric exam: PRESENT: flat affect. ABSENT: agitated, anxious Focused psych exam: ABSENT: delusional, restlessness Skin exam: PRESENT: dry, other - Dressing on right leg from skin laceration Results Laboratory Results: 02/11/19 10:05 02/11/19 10:05 02/11/19 02/11/19 02/11/19 10:05 10:05 12:44 WBC 20.3 H RBC 3.94 Hgb 11.3 L Hct 34.0 L MCV 86 MCH 28.7 MCHC 33.2 RDW 14.4 H Plt Count 428 Seg Neutrophils % Not Reportable Sodium 142.8 Potassium 4.2 Chloride 105 Carbon Dioxide 21 L Anion Gap 17 BUN 19 Creatinine 1.71 H Est GFR ( Amer) 35 L Glucose 112 H Lactic Acid 1.3 Calcium 9.6 Total Bilirubin 0.9 AST 99 H Alkaline Phosphatase 216 H Total Protein 8.2 Albumin 3.8 Urine Color Urine Appearance Urine pH Ur Specific [place] Urine Protein Urine Glucose (UA) Urine Ketones Urine Blood Urine Nitrite Ur Leukocyte Esterase Urine WBC (Auto) Urine RBC (Auto) 02/11/19 13:08 WBC RBC Hgb Hct MCV MCH MCHC RDW Plt Count Seg Neutrophils % Sodium Potassium Chloride Carbon Dioxide Anion Gap BUN Creatinine Est GFR ( Amer) Glucose Lactic Acid Calcium Total Bilirubin AST Alkaline Phosphatase Total Protein Albumin Urine Color GIANCARLO Urine Appearance CLOUDY Urine pH 5.0 Ur Specific [place] 1.030 Urine Protein 100 H Urine Glucose (UA) NEGATIVE Urine Ketones NEGATIVE Urine Blood NEGATIVE Urine Nitrite NEGATIVE Ur Leukocyte Esterase TRACE H Urine WBC (Auto) 64 Urine RBC (Auto) 13 02/11/19 02/11/19 02/11/19 10:05 10:05 12:44 Creatine Kinase 78 CK-MB (CK-2) 0.32 Troponin I < 0.012 < 0.012 Impressions: Chest X-Ray 02/11/19 12:18 IMPRESSION: No acute cardiopulmonary process. Assessment and Plan - Diagnosis (1) ANTONELLA (acute kidney injury) Is this a current diagnosis for this admission?: Yes Plan: 02/11/2019-the patient has had multiple chemistries at the hospital. Approximately 2 weeks ago her creatinine was 1.36. It is up to 1.7 today. I will initiate gentle fluids and monitor her renal function. The goal will be approximately 4 L of fluid daily. Based on reports from family her appetite is been poor and she likely has not been drinking fluids. She has been on Megace but the did not feel it is very effective. Also she has been on antibiotic th erapy that certainly could have adversely affected the kidneys. We will continue to monitor renal function. (2) Acute UTI (urinary tract infection) Is this a current diagnosis for this admission?: Yes Plan: 02/11/2019-the patient was seen in the emergency department and treated for urinary tract infection approximately 2 weeks ago. It is unclear if they continue to her antibiotic therapy while in the [facility] after she fell and hit her head. Her urinalysis is still positive. The leukocyte esterase is positive and she is nitrite negative. She may have a staph or strep. For the time being we will maintain her on ceftriaxone. Await the urine culture results. Adjust antibiotics accordingly. (3) Leukocytosis Qualifiers: Leukocytosis type: bandemia Qualified Code(s): D72.825 - Bandemia Is this a current diagnosis for this admission?: Yes Plan: 02/11/2019-the bandemia is most likely related to infection. As noted above it is hard to know the continuity of her antibiotic therapy. She also sustained a leg laceration yesterday. We will continue IV fluids and antibiotic therapy and follow the patient's white blood cell count. (4) HTN (hypertension) Qualifiers: Hypertension type: essential hypertension Qualified Code(s): I10 - Essential (primary) hypertension Is this a current diagnosis for this admission?: Yes Plan: 02/11/2019-I will continue the lisinopril 10 mg daily. I put a parameter to hold for blood pressure less than 110. She will be getting IV fluids. Her blood pressure is low in the IV fluids should help. (5) Laceration of lower leg Qualifiers: Encounter type: initial encounter Laterality: right Qualified Code(s): S81.811A - Laceration without foreign body, right lower leg, initial encounter Is this a current diagnosis for this admission?: Yes Plan: 02/11/2019-she sustained a laceration yesterday and was treated emergency department. I have asked that the dressing be changed daily and that they apply Bactroban cream with each dressing change. (7) Depression Qualifiers: Depression Type: unspecified Qualified Code(s): F32.9 - Major depressive disorder, single episode, unspecified Is this a current diagnosis for this admission?: Yes Plan: 02/11/2019-the patient is on sertraline and Seroquel. We will continue to monitor the patient clinically. (8) Dementia Qualifiers: Dementia type: unspecified type Dementia behavioral disturbance: without behavioral disturbance Qualified Code(s): F03.90 - Unspecified dementia without behavioral disturbance Is this a current diagnosis for this admission?: Yes Plan: 02/11/2019-the patient lives at the [facility]. 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 We will continue her current medication regimen. - Plan Summary Summary: 02/11/2019-the patient has been in and out of hospitals for the last 2 weeks. She may still have urinary tract infection. She may have infection at the laceration site. I will start the patient on ceftriaxone. Await urine culture results. The patient will be getting IV fluids at 4 L/day. We will continue her other medications. I have asked physical therapy to see the patient as well as she likely has an unsteady gait. - Time Time Spent with patient: 35 or more minutes Medications reviewed and adjusted accordingly: Yes Anticipated discharge: Other - Back to the [facility] memory care unit - Inpatient Certification Based on my medical assessment, after consideration of the patient's comorbidities, presenting symptoms, or acuity I expect that the services needed warrant INPATIENT care.: Yes I certify that my determination is in accordance with my understanding of Medicare's requirements for reasonable and necessary INPATIENT services [42 CFR 412.3e].: Yes Medical Necessity: Need For IV Fluids, Need for IV Antibiotics, Risk of Complication if Not Cared For in Hospital Post Hospital Care: D/C Regulatory Affairs Analyst Documentation
--- NOTE | 2019-02-11 17:32 | ADVANCED CARE ---
Attendance: The patient's son and his are at the bedside Resuscitation Status: Full Code Discussion: I am familiar with the patient's son as I admitted the patient's to this hospital several weeks ago. The patient's other son has the power of attorney at law. The family wishes patient to be a full code at this time. Had a similar discussion with the family regarding the patient's . The family wishes that everything be done. And had this discussion with the same family regarding the father and this was the same response. At this time we will provide aggressive treatment. Care Planning Goals: Further education and consideration of the patient's well-being with regard to permanent placement in a memory care center. Document(s) Completed: None Time Spent: 16 minutes
[2019-02-11] MEDS: ACETAMINOPHEN 325 MG TABLET PO PRN (19:35)
[2019-02-11] MEDS ORDERED: (PENDING PHARMACY ID) (Quetiapine Fumarate [Seroquel] 75 MG) PO SCH (22:00)
[2019-02-11] MEDS ORDERED: FAMOTIDINE 20 MG TABLET PO SCH (22:00)
[2019-02-11] MEDS: MEGESTROL ACETATE 20 MG TABLET PO SCH (22:42)
[2019-02-11] MEDS: HEPARIN SOD (PORCINE) 5,000 UNIT/ML 1 ML VIAL SUBCUT SCH (22:43)
[2019-02-11] MEDS: QUETIAPINE FUMARATE 25 MG TABLET PO SCH (22:43)
[2019-02-11] MEDS: FAMOTIDINE 20 MG TABLET PO SCH (22:43)
[2019-02-12] MEDS: LEVOTHYROXINE SODIUM 0.05 MG TABLET PO SCH (05:25)
[2019-02-12] MEDS: HEPARIN SOD (PORCINE) 5,000 UNIT/ML 1 ML VIAL SUBCUT SCH ×3 (05:25→22:17)
[2019-02-12] MEDS: NORMAL SALINE 1000 ML 1,000 ML IV PRN ×2 (05:27→09:39)
[2019-02-12 05:41] LABS: ABSOLUTE EOSINOPHILS # (AUTO) 0.1 10^3/uL (0.0-0.6); ABSOLUTE LYMPHOCYTES (AUTO) 0.7 10^3/uL (0.5-4.7); ABSOLUTE MONOCYTES (AUTO) 0.3 10^3/uL (0.1-1.4); ABSOLUTE NEUT (AUTO) 9.8 10^3/uL (1.7-8.2); BASOPHILS % (AUTO) 0.3 % (0-2); EOSINOPHILS % (AUTO) 1.3 % (0-6); HEMATOCRIT 27.6 % (36.0-47.0); HEMOGLOBIN 9.4 g/dL (12.0-15.5); LYMPHOCYTES % (AUTO) 6.1 % (13-45); MEAN CORPUSCULAR HEMOGLOBIN 29.2 pg (27.0-33.4); MEAN CORPUSCULAR VOLUME 86 fl (80-97); MONOCYTES % (AUTO) 2.3 % (3-13); PLATELET COUNT 294 10^3/uL (150-450); RED BLOOD COUNT 3.22 10^6/uL (3.72-5.28); RED CELL DISTRIBUTION WIDTH 14.6 % (11.5-14.0); TOTAL CELLS COUNTED % (AUTO) 100 %; WHITE BLOOD COUNT 10.9 10^3/uL (4.0-10.5)
[2019-02-12 06:01] LABS: ANION GAP 13 (5-19); BLOOD UREA NITROGEN 24 mg/dL (7-20); CALCIUM 7.7 mg/dL (8.4-10.2); CARBON DIOXIDE 19 mmol/L (22-30); CHLORIDE 106 mmol/L (98-107); GLUCOSE 73 mg/dL (75-110); PHOSPHORUS 4.4 mg/dL (2.5-4.5); POTASSIUM 4.2 mmol/L (3.6-5.0)
[2019-02-12] MEDS: LISINOPRIL 10 MG TABLET PO SCH (09:32)
[2019-02-12] MEDS: MEGESTROL ACETATE 20 MG TABLET PO SCH ×2 (09:33→22:17)
[2019-02-12] MEDS: CHOLECALCIFEROL (D3) 1,000 UNIT (25 MCG) TABLET PO SCH (09:33)
[2019-02-12] MEDS: SERTRALINE HCL 50 MG TABLET PO SCH (09:33)
[2019-02-12] MEDS: NYSTATIN TOPICAL POWDER 15 GM TP SCH (09:33)
[2019-02-12] MEDS ORDERED: (PENDING PHARMACY ID) (Mirabegron [Myrbetriq] 50 MG) PO SCH (10:00)
[2019-02-12] MEDS ORDERED: LISINOPRIL 10 MG TABLET PO SCH (10:00)
[2019-02-12] MEDS ORDERED: (PENDING PHARMACY ID) (Sertraline Hcl [Zoloft] 25 MG) PO SCH (10:00)
[2019-02-12] MEDS: MUPIROCIN CALCIUM 2% CREAM 15 GM TP SCH (11:42)
[2019-02-12] MEDS: CEFTRIAXONE 1 GM/D5W RTU 1 GM/50 ML RTUPB IV SCH (11:42)
--- NOTE | 2019-02-12 11:43 | EKG REPORT ---
SEVERITY:- ABNORMAL ECG - SINUS TACHYCARDIA PROBABLE LEFT ATRIAL ABNORMALITY LEFT VENTRICULAR HYPERTROPHY BORDERLINE PROLONGED QT INTERVAL : Confirmed by: Angelina Marinelli MD 12-Feb-2019 11:42:47
--- NOTE | 2019-02-12 13:31 | PDOC PROGRESS REPORT ---
Subjective Progress Note for:: 02/12/19 Subjective:: Patient still endorses not much food consumption. Otherwise denies any significant pain besides at the site of the laceration. Reason For Visit: ACUTE UTI (URINARY TRACT INFECTION) LEUKOCYTOSIS Physical Exam Vital Signs: Temp Pulse Resp BP Pulse Ox 99.4 F 93 18 144/56 H 100 02/12/19 12:09 02/12/19 12:09 02/12/19 12:09 02/12/19 12:09 02/12/19 12:09 Intake & Output 02/11/19 02/12/19 02/13/19 06:59 06:59 06:59 Intake Total 3320 1000 Balance 3320 1000 Weight 65.4 kg 35.4 kg General appearance: PRESENT: no acute distress, cooperative Neck exam: ABSENT: JVD Respiratory exam: PRESENT: clear to auscultation miguel, unlabored. ABSENT: tachypnea, wheezes Cardiovascular exam: PRESENT: RRR, +S1, +S2. ABSENT: tachycardia GI/Abdominal exam: PRESENT: normal bowel sounds, soft. ABSENT: rebound, rigid, tenderness Neurological exam: PRESENT: alert, awake Results Laboratory Results: 02/12/19 03:45 02/12/19 03:45 02/11/19 02/11/19 02/12/19 12:44 13:08 03:45 WBC 10.9 H RBC 3.22 L Hgb 9.4 L Hct 27.6 L MCV 86 MCH 29.2 MCHC 34.0 RDW 14.6 H Plt Count 294 Seg Neutrophils % 90.0 H Sodium Potassium Chloride Carbon Dioxide Anion Gap BUN Creatinine Est GFR ( Amer) Glucose Lactic Acid 1.3 Calcium Phosphorus TSH Urine Color GIANCARLO Urine Appearance CLOUDY Urine pH 5.0 Ur Specific [place] 1.030 Urine Protein 100 H Urine Glucose (UA) NEGATIVE Urine Ketones NEGATIVE Urine Blood NEGATIVE Urine Nitrite NEGATIVE Ur Leukocyte Esterase TRACE H Urine WBC (Auto) 64 Urine RBC (Auto) 13 02/12/19 02/12/19 03:45 03:45 WBC RBC Hgb Hct MCV MCH MCHC RDW Plt Count Seg Neutrophils % Sodium 138.2 Potassium 4.2 Chloride 106 Carbon Dioxide 19 L Anion Gap 13 BUN 24 H Creatinine 1.78 H Est GFR ( Amer) 34 L Glucose 73 L Lactic Acid Calcium 7.7 L Phosphorus 4.4 TSH 5.86 H Urine Color Urine Appearance Urine pH Ur Specific [place] Urine Protein Urine Glucose (UA) Urine Ketones Urine Blood Urine Nitrite Ur Leukocyte Esterase Urine WBC (Auto) Urine RBC (Auto) 02/11/19 02/11/19 02/11/19 10:05 10:05 12:44 Creatine Kinase 78 CK-MB (CK-2) 0.32 Troponin I < 0.012 < 0.012 Impressions: Chest X-Ray 02/11/19 12:18 IMPRESSION: No acute cardiopulmonary process. Assessment and Plan - Diagnosis (1) ANTONELLA (acute kidney injury) Is this a current diagnosis for this admission?: Yes Plan: 02/11/2019-the patient has had multiple chemistries at the hospital. Approximately 2 weeks ago her creatinine was 1.36. It is up to 1.7 today. I will initiate gentle fluids and monitor her renal function. The goal will be approximately 4 L of fluid daily. Based on reports from family her appetite is been poor and she likely has not been drinking fluids. She has been on Megace but the did not feel it is very effective. Also she has been on antibiotic therapy that certainly could have adversely affected the kidneys. We will continue to monitor renal function. 02/12/2019-patient received about 3 L of fluid intake yesterday. No output documented. However, upon conversation with nurse, was told that patient is reportedly incontinent. We will do postvoid residual on patient. I will continue with IV fluids for now as I believe the patient appears somewhat dry on exam even though the creatinine did not improve from yesterday. Check renal ultrasound to rule out hydronephrosis. (2) Laceration of lower leg Qualifiers: Encounter type: initial encounter Laterality: right Qualified Code(s): S81.811A - Laceration without foreign body, right lower leg, initial encounter Is this a current diagnosis for this admission?: Yes Plan: 02/11/2019-she sustained a laceration yesterday and was treated emergency department. I have asked that the dressing be changed daily and that they apply Bactroban cream with each dressing change. 02/12/2019-no changes to plan (3) Acute UTI (urinary tract infection) Is this a current diagnosis for this admission?: Yes Plan: 02/11/2019-the patient was seen in the emergency department and treated for urinary tract infection approximately 2 weeks ago. It is unclear if they continue to her antibiotic therapy while in the [facility] after she fell and hit her head. Her urinalysis is still positive. The leukocyte esterase is positive and she is nitrite negative. She may have a staph or strep. For the time being we will maintain her on ceftriaxone. Await the urine culture results. Adjust antibiotics accordingly. (4) Dementia Qualifiers: Dementia type: unspecified type Dementia behavioral disturbance: without behavioral disturbance Qualified Code(s): F03.90 - Unspecified dementia without behavioral disturbance Is this a current diagnosis for this admission?: Yes Plan: 02/11/2019-the patient lives at the [facility]. 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 We will continue her current medication regimen. 02/12/19 - Stable (5) Leukocytosis Qualifiers: Leukocytosis type: bandemia Qualified Code(s): D72.825 - Bandemia Is this a current diagnosis for this admission?: Yes Plan: 02/11/2019-the bandemia is most likely related to infection. As noted above it is hard to know the continuity of her antibiotic therapy. She also sustained a leg laceration yesterday. We will continue IV fluids and antibiotic therapy and follow the patient's white blood cell count. 02/12/2019-resolved with IV fluids. Suspect largely from dehydration. Also on antibiotics and currently. (6) Depression Qualifiers: Depression Type: unspecified Qualified Code(s): F32.9 - Major depressive disorder, single episode, unspecified Is this a current diagnosis for this admission?: Yes Plan: 02/11/2019-the patient is on sertraline and Seroquel. We will continue to monitor the patient clinically. - Plan Summary Summary: 02/11/2019-the patient has been in and out of hospitals for the last 2 weeks. She may still have urinary tract infection. She may have infection at the laceration site. I will start the patient on ceftriaxone. Await urine culture results. The patient will be getting IV fluids at 4 L/day. We will continue her other medications. I have asked physical therapy to see the patient as well as she likely has an unsteady gait. - Time Time Spent with patient: 15-24 minutes
--- NOTE | 2019-02-12 15:14 | RADIOLOGY REPORT (SQ) ---
EXAM DESCRIPTION: U/S RETROPERITON (RENAL/AORTA) COMPLETED DATE/TIME: 02/12/2019 2:55 pm REASON FOR STUDY: ANTONELLA COMPARISON: CT abdomen pelvis 07/15/2016 TECHNIQUE: Dynamic and static grayscale images acquired of the kidneys and bladder and recorded on P ACS. Additional selected color Doppler and spectral images recorded. LIMITATIONS: Bowel gas, body habitus Urinary bladder decompressed, not well seen FINDINGS: RIGHT KIDNEY: Normal size, 11 cm in length. Normal echogenicity. No solid or suspicious ma sses. No hydronephrosis. No calcifications. LEFT KIDNEY: Normal size, 9.5 cm in length. Normal echogenicity. No solid or suspicious masses. No h ydronephrosis. No calcifications. 12 mm left midpole renal cortical cyst. BLADDER: Decompressed, not well seen. OTHER FINDINGS: No other significant finding. IMPRESSION: No hydronephrosis. Bladder not well seen TECHNICAL DOCUMENTATION: JOB ID: [id number] [employer]- All Rights Reserved Reading location - IP/workstation name: [email or web address]
--- NOTE | 2019-02-12 15:19 | Progress Note ---
Provider Note Provider Note: I was notified that patient's blood cultures resulted positive from yesterday for coagulase-negative staph in 1 bottle and GPC in clusters and another bottle. Patient is already on ceftriaxone for suspected UTI since yesterday. I will make no changes to current regimen. May simply be a contaminant but it is hard to tell. Repeat blood cultures placed. Follow-up sensitivities.
[2019-02-12] MEDS: QUETIAPINE FUMARATE 25 MG TABLET PO SCH (22:17)
[2019-02-12] MEDS: FAMOTIDINE 20 MG TABLET PO SCH (22:17)
[2019-02-12] MEDS: DEXTROSE 5%-1/2 NORMAL SALINE 1,000 ML IV PRN (22:17)
[2019-02-13] MEDS: DEXTROSE 5%-1/2 NORMAL SALINE 1,000 ML IV PRN ×2 (05:17→12:21)
[2019-02-13] MEDS: HEPARIN SOD (PORCINE) 5,000 UNIT/ML 1 ML VIAL SUBCUT SCH ×3 (05:17→22:46)
[2019-02-13] MEDS: LEVOTHYROXINE SODIUM 0.05 MG TABLET PO SCH (05:17)
[2019-02-13 07:33] LABS: ABSOLUTE EOSINOPHILS # (AUTO) 0.2 10^3/uL (0.0-0.6); ABSOLUTE LYMPHOCYTES (AUTO) 1.3 10^3/uL (0.5-4.7); ABSOLUTE MONOCYTES (AUTO) 0.4 10^3/uL (0.1-1.4); ABSOLUTE NEUT (AUTO) 4.7 10^3/uL (1.7-8.2); BASOPHILS % (AUTO) 0.7 % (0-2); EOSINOPHILS % (AUTO) 3.4 % (0-6); HEMATOCRIT 24.5 % (36.0-47.0); HEMOGLOBIN 8.3 g/dL (12.0-15.5); LYMPHOCYTES % (AUTO) 19.1 % (13-45); MEAN CORPUSCULAR HGB CONC 34.1 g/dL (32.0-36.0); MEAN CORPUSCULAR VOLUME 85 fl (80-97); MONOCYTES % (AUTO) 5.9 % (3-13); PLATELET COUNT 305 10^3/uL (150-450); RED BLOOD COUNT 2.88 10^6/uL (3.72-5.28); RED CELL DISTRIBUTION WIDTH 14.6 % (11.5-14.0); SEGMENTED NEUTROPHILS % (AUTO) 70.9 % (42-78); TOTAL CELLS COUNTED % (AUTO) 100 %; WHITE BLOOD COUNT 6.6 10^3/uL (4.0-10.5)
[2019-02-13 07:45] LABS: ANION GAP 10 (5-19); BLOOD UREA NITROGEN 17 mg/dL (7-20); CARBON DIOXIDE 16 mmol/L (22-30); CHLORIDE 109 mmol/L (98-107); GLUCOSE 103 mg/dL (75-110); PHOSPHORUS 3.6 mg/dL (2.5-4.5)
[2019-02-13] MEDS: SERTRALINE HCL 50 MG TABLET PO SCH (10:47)
[2019-02-13] MEDS: CHOLECALCIFEROL (D3) 1,000 UNIT (25 MCG) TABLET PO SCH (10:47)
[2019-02-13] MEDS: MEGESTROL ACETATE 20 MG TABLET PO SCH ×2 (10:47→22:46)
[2019-02-13] MEDS: LISINOPRIL 10 MG TABLET PO SCH (10:47)
[2019-02-13] MEDS: NYSTATIN TOPICAL POWDER 15 GM TP SCH (10:48)
[2019-02-13] MEDS: MUPIROCIN CALCIUM 2% CREAM 15 GM TP SCH (10:48)
[2019-02-13] MEDS: CEFTRIAXONE 1 GM/D5W RTU 1 GM/50 ML RTUPB IV SCH (12:21)
--- NOTE | 2019-02-13 15:16 | PDOC PROGRESS REPORT ---
Subjective Progress Note for:: 02/13/19 Subjective:: No adverse events overnight. No new complaints. Vital signs been stable. Eating and drinking without difficulty. Reason For Visit: ACUTE UTI (URINARY TRACT INFECTION) LEUKOCYTOSIS Physical Exam Vital Signs: Temp Pulse Resp BP Pulse Ox 98.4 F 88 18 120/78 97 02/13/19 07:24 02/13/19 07:24 02/13/19 07:24 02/13/19 07:24 02/13/19 07:24 Intake & Output 02/12/19 02/13/19 02/14/19 06:59 06:59 06:59 Intake Total 3320 3425 919 Balance 3320 3425 919 Weight 65.4 kg 63.9 kg General appearance: PRESENT: no acute distress, cooperative, disheveled Respiratory exam: PRESENT: clear to auscultation miguel, symmetrical, unlabored. ABSENT: accessory muscle use, chest wall tenderness, crackles, prolonged expiratory phas, rhonchi, tachypnea, wheezes Cardiovascular exam: PRESENT: RRR, +S1, +S2 Pulses: PRESENT: normal carotid pulses Vascular exam: PRESENT: normal capillary refill GI/Abdominal exam: PRESENT: normal bowel sounds, soft. ABSENT: distended, guarding, rebound, tenderness Extremities exam: ABSENT: clubbing, pedal edema Musculoskeletal exam: PRESENT: normal inspection. ABSENT: deformity Neurological exam: PRESENT: alert, awake, oriented to person, oriented to situation Psychiatric exam: PRESENT: appropriate affect, normal mood Skin exam: PRESENT: dry, warm Results Laboratory Results: 02/13/19 06:48 02/13/19 06:48 02/13/19 02/13/19 06:48 06:48 WBC 6.6 RBC 2.88 L Hgb 8.3 L Hct 24.5 L MCV 85 MCH 29.0 MCHC 34.1 RDW 14.6 H Plt Count 305 Seg Neutrophils % 70.9 Sodium 134.8 L Potassium 4.0 Chloride 109 H Carbon Dioxide 16 L Anion Gap 10 BUN 17 Creatinine 1.25 Est GFR ( Amer) 50 L Glucose 103 Calcium 8.0 L Phosphorus 3.6 02/11/19 13:08 Catheterized Urine Urine Culture - Final NO GROWTH 2 DAYS 02/11/19 12:44 Blood Blood Culture (PCR) - Final Staphylococcus Species 02/11/19 14:47 Blood Blood Culture (PCR) - Final Staphylococcus Species 02/11/19 02/11/19 02/11/19 10:05 10:05 12:44 Creatine Kinase 78 CK-MB (CK-2) 0.32 Troponin I < 0.012 < 0.012 Impressions: Chest X-Ray 02/11/19 12:18 IMPRESSION: No acute cardiopulmonary process. Renal Ultrasound 02/12/19 00:00 IMPRESSION: No hydronephrosis. Bladder not well seen Assessment and Plan - Diagnosis (1) ANTONELLA (acute kidney injury) Is this a current diagnosis for this admission?: Yes Plan: Resolved, creatinine back in the normal range (2) Acute UTI (urinary tract infection) Is this a current diagnosis for this admission?: Yes Plan: Previous culture grew out E. coli and Proteus, the Proteus had some resistances but both were sensitive to all cephalosporins. She is currently on Rocephin, but she should be able to finish up a course of treatment outside the hospital on her oral cephalosporin. (3) Dementia Qualifiers: Dementia type: unspecified type Dementia behavioral disturbance: without b ehavioral disturbance Qualified Code(s): F03.90 - Unspecified dementia without behavioral disturbance Is this a current diagnosis for this admission?: Yes Plan: 02/11/2019-the patient lives at the [facility]. 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 We will continue her current medication regimen. 02/12/19 - Stable (4) Laceration of lower leg Qualifiers: Encounter type: initial encounter Laterality: right Qualified Code(s): S81.811A - Laceration without foreign body, right lower leg, initial encounter Is this a current diagnosis for this admission?: Yes Plan: 02/11/2019-she sustained a laceration yesterday and was treated emergency department. I have asked that the dressing be changed daily and that they apply Bactroban cream with each dressing change. 02/12/2019-no changes to plan - Plan Summary Summary: 02/11/2019-the patient has been in and out of hospitals for the last 2 weeks. She may still have urinary tract infection. She may have infection at the laceration site. I will start the patient on ceftriaxone. Await urine culture results. The patient will be getting IV fluids at 4 L/day. We will continue her other medications. I have asked physical therapy to see the patient as well as she likely has an unsteady gait. - Time Time Spent with patient: 15-24 minutes
[2019-02-13] MEDS: FAMOTIDINE 20 MG TABLET PO SCH (22:46)
[2019-02-13] MEDS: QUETIAPINE FUMARATE 25 MG TABLET PO SCH (22:46)
[2019-02-14] MEDS: DEXTROSE 5%-1/2 NORMAL SALINE 1,000 ML IV PRN ×3 (05:19→22:00)
[2019-02-14] MEDS: HEPARIN SOD (PORCINE) 5,000 UNIT/ML 1 ML VIAL SUBCUT SCH ×3 (05:20→21:59)
[2019-02-14] MEDS: LEVOTHYROXINE SODIUM 0.05 MG TABLET PO SCH (05:21)
[2019-02-14 05:50] LABS: ABSOLUTE BASOPHILS # (AUTO) 0.1 10^3/uL (0.0-0.2); ABSOLUTE EOSINOPHILS # (AUTO) 0.2 10^3/uL (0.0-0.6); ABSOLUTE LYMPHOCYTES (AUTO) 1.5 10^3/uL (0.5-4.7); ABSOLUTE MONOCYTES (AUTO) 0.4 10^3/uL (0.1-1.4); ABSOLUTE NEUT (AUTO) 3.2 10^3/uL (1.7-8.2); BASOPHILS % (AUTO) 1.1 % (0-2); EOSINOPHILS % (AUTO) 4.3 % (0-6); HEMATOCRIT 29.1 % (36.0-47.0); HEMOGLOBIN 9.9 g/dL (12.0-15.5); LYMPHOCYTES % (AUTO) 28.4 % (13-45); MEAN CORPUSCULAR HEMOGLOBIN 29.1 pg (27.0-33.4); MEAN CORPUSCULAR HGB CONC 34.1 g/dL (32.0-36.0); MEAN CORPUSCULAR VOLUME 85 fl (80-97); MONOCYTES % (AUTO) 6.8 % (3-13); PLATELET COUNT 384 10^3/uL (150-450); RED CELL DISTRIBUTION WIDTH 14.5 % (11.5-14.0); SEGMENTED NEUTROPHILS % (AUTO) 59.4 % (42-78); TOTAL CELLS COUNTED % (AUTO) 100 %; WHITE BLOOD COUNT 5.4 10^3/uL (4.0-10.5)
[2019-02-14 06:28] LABS: ANION GAP 10 (5-19); BLOOD UREA NITROGEN 12 mg/dL (7-20); CALCIUM 8.6 mg/dL (8.4-10.2); CARBON DIOXIDE 20 mmol/L (22-30); CHLORIDE 105 mmol/L (98-107); GLUCOSE 103 mg/dL (75-110); PHOSPHORUS 4.4 mg/dL (2.5-4.5); POTASSIUM 4.2 mmol/L (3.6-5.0)
[2019-02-14] MEDS: NYSTATIN TOPICAL POWDER 15 GM TP SCH (09:01)
[2019-02-14] MEDS: MUPIROCIN CALCIUM 2% CREAM 15 GM TP SCH (09:01)
[2019-02-14] MEDS: MEGESTROL ACETATE 20 MG TABLET PO SCH ×2 (09:02→21:57)
[2019-02-14] MEDS: LISINOPRIL 10 MG TABLET PO SCH (09:02)
[2019-02-14] MEDS: SERTRALINE HCL 50 MG TABLET PO SCH (09:02)
[2019-02-14] MEDS: CHOLECALCIFEROL (D3) 1,000 UNIT (25 MCG) TABLET PO SCH (09:03)
[2019-02-14] MEDS: CEFTRIAXONE 1 GM/D5W RTU 1 GM/50 ML RTUPB IV SCH (12:33)
[2019-02-14] MEDS ORDERED: PROMETHAZINE HCL INJ 25 MG/1 ML VIAL IV PRN (14:30)
--- NOTE | 2019-02-14 14:54 | PDOC PROGRESS REPORT ---
Subjective Progress Note for:: 02/14/19 Subjective:: No adverse events overnight. No new complaints. Vital signs been stable. Eating and drinking without difficulty. She could not remember what she had for breakfast this morning. Reason For Visit: ACUTE UTI (URINARY TRACT INFECTION) LEUKOCYTOSIS Physical Exam Vital Signs: Temp Pulse Resp BP Pulse Ox 99.0 F 96 18 133/72 H 97 02/14/19 11:05 02/14/19 11:05 02/14/19 11:05 02/14/19 11:05 02/14/19 11:05 Intake & Output 02/13/19 02/14/19 02/15/19 06:59 06:59 06:59 Intake Total 3425 2874 1370 Output Total 4000 1100 Balance 3425 -1126 270 Weight 63.9 kg 67.6 kg General appearance: PRESENT: no acute distress, cooperative, disheveled Respiratory exam: PRESENT: clear to auscultation miguel, symmetrical, unlabored. ABSENT: accessory muscle use, chest wall tenderness, crackles, prolonged expiratory phas, rhonchi, tachypnea, wheezes Cardiovascular exam: PRESENT: RRR, +S1, +S2 Pulses: PRESENT: normal carotid pulses Vascular exam: PRESENT: normal capillary refill GI/Abdominal exam: PRESENT: normal bowel sounds, soft. ABSENT: distended, guarding, rebound, tenderness Extremities exam: ABSENT: clubbing, pedal edema Musculoskeletal exam: PRESENT: normal inspection. ABSENT: deformity Neurological exam: PRESENT: alert, awake, oriented to person Psychiatric exam: PRESENT: appropriate affect, normal mood Skin exam: PRESENT: dry, warm Results Laboratory Results: 02/14/19 04:29 02/14/19 04:29 02/14/19 02/14/19 04:29 04:29 WBC 5.4 RBC 3.40 L Hgb 9.9 L Hct 29.1 L MCV 85 MCH 29.1 MCHC 34.1 RDW 14.5 H Plt Count 384 Seg Neutrophils % 59.4 Sodium 135.1 L Potassium 4.2 Chloride 105 Carbon Dioxide 20 L Anion Gap 10 BUN 12 Creatinine 1.04 Est GFR ( Amer) > 60 Glucose 103 Calcium 8.6 Phosphorus 4.4 02/11/19 12:44 Blood Blood Culture (PCR) - Final Staphylococcus Species 02/11/19 14:47 Blood Blood Culture (PCR) - Final Staphylococcus Species 02/11/19 13:08 Catheterized Urine Urine Culture - Final NO GROWTH 2 DAYS 02/11/19 02/11/19 02/11/19 10:05 10:05 12:44 Creatine Kinase 78 CK-MB (CK-2) 0.32 Troponin I < 0.012 < 0.012 Impressions: Chest X-Ray 02/11/19 12:18 IMPRESSION: No acute cardiopulmonary process. Renal Ultrasound 02/12/19 00:00 IMPRESSION: No hydronephrosis. Bladder not well seen Assessment and Plan - Diagnosis (1) ANTONELLA (acute kidney injury) Is this a current diagnosis for this admission?: Yes Plan: Resolved, creatinine back in the normal range. Will look to see if her family thinks that she would do well in a shelter facility setting for rehab. (2) Acute UTI (urinary tract infection) Is this a current diagnosis for this admission?: Yes Plan: Previous culture grew out E. coli and Proteus, the Proteus had some resistances but both were sensitive to all cephalosporins. She is currently on Rocephin, but she should be able to finish up a course of treatment outside the hospital on her oral cephalosporin. (3) Dementia Qualifiers: Dementia type: unspecified type Dementia behavioral disturbance: without behavioral disturbance Qualified Code(s): F03.90 - Unspecified dementia without behavioral disturbance Is this a current diagnosis for this admission?: Yes Plan: 02/11/2019-the patient lives at the [facility]. 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 We will continue her current medication regimen. 02/12/19 - Stable (4) Laceration of lower leg Qualifiers: Encounter type: initial encounter Laterality: right Qualified Code(s): S81.811A - Laceration without foreign body, right lower leg, initial encounter Is this a current diagnosis for this admission?: Yes Plan: 02/11/2019-she sustained a laceration yesterday and was treated emergency department. I have asked that the dressing be changed daily and that they apply Bactroban cream with each dressing change. 02/12/2019-no changes to plan - Plan Summary Summary: 02/11/2019-the patient has been in and out of hospitals for the last 2 weeks. She may still have urinary tract infection. She may have infection at the laceration site. I will start the patient on ceftriaxone. Await urine culture results. The patient will be getting IV fluids at 4 L/day. We will continue her other medications. I have asked physical therapy to see the patient as well as she likely has an unsteady gait. - Time Time Spent with patient: 15-24 minutes
[2019-02-14] MEDS: FAMOTIDINE 20 MG TABLET PO SCH (21:57)
[2019-02-14] MEDS: QUETIAPINE FUMARATE 25 MG TABLET PO SCH (21:57)
[2019-02-14] MEDS: ACETAMINOPHEN 325 MG TABLET PO PRN (23:22)
[2019-02-15] MEDS: HEPARIN SOD (PORCINE) 5,000 UNIT/ML 1 ML VIAL SUBCUT SCH ×3 (05:15→21:11)
[2019-02-15] MEDS: LEVOTHYROXINE SODIUM 0.05 MG TABLET PO SCH (05:15)
[2019-02-15] MEDS: DEXTROSE 5%-1/2 NORMAL SALINE 1,000 ML IV PRN ×2 (05:18→12:18)
[2019-02-15] MEDS: LISINOPRIL 10 MG TABLET PO SCH (09:21)
[2019-02-15] MEDS: SERTRALINE HCL 50 MG TABLET PO SCH (09:21)
[2019-02-15] MEDS: MUPIROCIN CALCIUM 2% CREAM 15 GM TP SCH (09:21)
[2019-02-15] MEDS: MEGESTROL ACETATE 20 MG TABLET PO SCH ×2 (09:22→21:12)
[2019-02-15] MEDS: CHOLECALCIFEROL (D3) 1,000 UNIT (25 MCG) TABLET PO SCH (09:22)
[2019-02-15] MEDS: NYSTATIN TOPICAL POWDER 15 GM TP SCH (09:23)
[2019-02-15] MEDS: CEFTRIAXONE 1 GM/D5W RTU 1 GM/50 ML RTUPB IV SCH (12:18)
--- NOTE | 2019-02-15 16:14 | PDOC PROGRESS REPORT ---
Subjective Progress Note for:: 02/15/19 Subjective:: No adverse events overnight. No new complaints. Vital signs been stable. Oral intake was poor yesterday, and her son said that have been an ongoing problem with her before she came into the hospital. Her son decided that he wanted to try to get her into rehab at [place] where her is. Reason For Visit: ACUTE UTI (URINARY TRACT INFECTION) LEUKOCYTOSIS Physical Exam Vital Signs: Temp Pulse Resp BP Pulse Ox 98.1 F 86 17 149/85 H 98 02/15/19 11:41 02/15/19 11:41 02/15/19 11:41 02/15/19 11:41 02/15/19 11:41 Intake & Output 02/14/19 02/15/19 02/16/19 06:59 06:59 06:59 Intake Total 2874 3913 1197 Output Total 4000 2410 1600 Balance -1126 1503 -403 Weight 67.6 kg 63.6 kg General appearance: PRESENT: no acute distress, cooperative, disheveled Respiratory exam: PRESENT: clear to auscultation miguel, symmetrical, unlabored. ABSENT: accessory muscle use, chest wall tenderness, crackles, prolonged expiratory phas, rhonchi, tachypnea, wheezes Cardiovascular exam: PRESENT: RRR, +S1, +S2 Pulses: PRESENT: normal carotid pulses Vascular exam: PRESENT: normal capillary refill GI/Abdominal exam: PRESENT: normal bowel sounds, soft. ABSENT: distended, guarding, rebound, tenderness Extremities exam: ABSENT: clubbing, pedal edema Musculoskeletal exam: PRESENT: normal inspection. ABSENT: deformity Neurological exam: PRESENT: alert, awake, oriented to person Psychiatric exam: PRESENT: appropriate affect, normal mood Skin exam: PRESENT: dry, warm Results Laboratory Results: 02/14/19 04:29 02/14/19 04:29 02/11/19 12:44 Blood Blood Culture (PCR) - Final Staphylococcus Species 02/11/19 12:44 Blood Blood Culture - Final Staphylococcus Hominis 02/11/19 14:47 Blood Blood Culture (PCR) - Final Staphylococcus Species 02/11/19 14:47 Blood Blood Culture - Final Staphylococcus Hominis 02/11/19 02/11/19 02/11/19 10:05 10:05 12:44 Creatine Kinase 78 CK-MB (CK-2) 0.32 Troponin I < 0.012 < 0.012 Impressions: Chest X-Ray 02/11/19 12:18 IMPRESSION: No acute cardiopulmonary process. Renal Ultrasound 02/12/19 00:00 IMPRESSION: No hydronephrosis. Bladder not well seen Assessment and Plan - Diagnosis (1) ANTONELLA (acute kidney injury) Is this a current diagnosis for this admission?: Yes Plan: Resolved, creatinine back in the normal range. Will look to see if her family thinks that she would do well in a detention facility setting for rehab. (2) Acute UTI (urinary tract infection) Is this a current diagnosis for this admission?: Yes Plan: Previous culture grew out E. coli and Proteus, the Proteus had some resistances but both were sensitive to all cephalosporins. She is currently on Rocephin, but she should be able to finish up a course of treatment outside the hospital on her oral cephalosporin. (3) Dementia Qualifiers: Dementia type: unspecified type Dementia behavioral disturbance: without behavioral disturbance Qualified Code(s): F03.90 - Unspecified dementia without behavioral disturbance Is this a current diagnosis for this admission?: Yes Plan: 02/11/2019-the patient lives at the [facility]. 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 We will continue her current medication regimen. 02/12/19 - Stable (4) Laceration of lower leg Qualifiers: Encounter type: initial encounter Laterality: right Qualified Code(s): S8 1.811A - Laceration without foreign body, right lower leg, initial encounter Is this a current diagnosis for this admission?: Yes Plan: 02/11/2019-she sustained a laceration yesterday and was treated emergency department. I have asked that the dressing be changed daily and that they apply Bactroban cream with each dressing change. 02/12/2019-no changes to plan (5) Positive blood cultures Is this a current diagnosis for this admission?: Yes Plan: She grew out coagulase-negative Staphylococcus from 2 blood cultures. She has been on Rocephin. She been on this for the treatment of the organisms that have grown out of her urine the last 2 times and has responded well. I do not believe this patient has bacteremia. The other possible source of infection on her would be a laceration in her leg, but the leg itself has never looked infected. Also, the organisms that grew out of her blood were resistant to almost everything, especially Rocephin, and so if she had a true staphylococcal bacteremia I would have expected her to be extremely ill despite antibiotics be cause the antibiotic she has been on would not have treated the coagulase- negative Staphylococcus. Also, we did repeat blood cultures 48 hours after the originals and they have been negative despite not being on an effective antibiotic according to blood cultures. - Plan Summary Summary: 02/11/2019-the patient has been in and out of hospitals for the last 2 weeks. She may still have urinary tract infection. She may have infection at the laceration site. I will start the patient on ceftriaxone. Await urine culture results. The patient will be getting IV fluids at 4 L/day. We will continue her other medications. I have asked physical therapy to see the patient as well as she likely has an unsteady gait. - Time Time Spent with patient: 25-34 minutes
[2019-02-15] MEDS: FAMOTIDINE 20 MG TABLET PO SCH (21:12)
[2019-02-15] MEDS: QUETIAPINE FUMARATE 25 MG TABLET PO SCH (21:12)
[2019-02-16] MEDS: DEXTROSE 5%-1/2 NORMAL SALINE 1,000 ML IV PRN ×3 (03:35→20:50)
[2019-02-16] MEDS: HEPARIN SOD (PORCINE) 5,000 UNIT/ML 1 ML VIAL SUBCUT SCH ×3 (05:25→21:06)
[2019-02-16] MEDS: LEVOTHYROXINE SODIUM 0.05 MG TABLET PO SCH (05:25)
[2019-02-16] MEDS: SERTRALINE HCL 50 MG TABLET PO SCH (09:21)
[2019-02-16] MEDS: NYSTATIN TOPICAL POWDER 15 GM TP SCH (09:21)
[2019-02-16] MEDS: MUPIROCIN CALCIUM 2% CREAM 15 GM TP SCH (09:21)
[2019-02-16] MEDS: CHOLECALCIFEROL (D3) 1,000 UNIT (25 MCG) TABLET PO SCH (09:21)
[2019-02-16] MEDS: LISINOPRIL 10 MG TABLET PO SCH (09:21)
[2019-02-16] MEDS: MEGESTROL ACETATE 20 MG TABLET PO SCH ×2 (09:22→21:06)
[2019-02-16] MEDS: CEFTRIAXONE 1 GM/D5W RTU 1 GM/50 ML RTUPB IV SCH (11:12)
--- NOTE | 2019-02-16 15:32 | PDOC TRANSFER SUMMARY ---
Impression - Admit/DC Date/PCP Admission Date/Primary Care Provider: 02/11/19 15:39 JANESSA BERNARDO MD Discharge Date: 02/16/19 - Discharge Diagnosis (1) ANTONELLA (acute kidney injury) Is this a current diagnosis for this admission?: Yes (2) Acute UTI (urinary tract infection) Is this a current diagnosis for this admission?: Yes (3) Dementia Is this a current diagnosis for this admission?: Yes (4) Laceration of lower leg Is this a current diagnosis for this admission?: Yes (5) Positive blood cultures Is this a current diagnosis for this admission?: Yes - Assessment Summary: 02/11/2019-the patient has been in and out of hospitals for the last 2 weeks. She may still have urinary tract infection. She may have infection at the laceration site. I will start the patient on ceftriaxone. Await urine culture results. The patient will be getting IV fluids at 4 L/day. We will continue her other medications. I have asked physical therapy to see the patient as well as she likely has an unsteady gait. - Additional Information Resuscitation Status: Full Code Discharge Diet: Regular Discharge Activity: Balance Activity w/Rest, Slowly Increase Activity, Supervised Activity Referrals: [facility] [Outside] Prescriptions: Cephalexin Monohydrate [Keflex 500 mg Capsule] 500 mg PO Q8 #15 capsule Home Medications: Cholecalciferol (Vitamin D3) [Vitamin D3 1000 Unit Tablet] 1,000 unit PO DAILY 02/11/19 Lanolin Alcohol/Mo/W.pet/[place] [Minerin Creme] 1 applic TP DAILY 02/11/19 Levothyroxine Sodium [Synthroid 0.05 mg Tablet] 50 mcg PO Q6AM 02/11/19 Lisinopril [Prinivil 10 mg Tablet] 10 mg PO DAILY 02/11/19 Megestrol Acetate [Megace 20 mg Tablet] 40 mg PO Q12 02/11/19 Mirabegron [Myrbetriq] 50 mg PO DAILY 02/11/19 Nystatin [Mycostatin Topical Powder 15 gm] 1 applic TP DAILY MDD UNDER BREAST 02/11/19 Omeprazole 20 mg PO DAILY 02/11/19 Quetiapine Fumarate [Seroquel] 75 mg PO QHS 02/11/19 Sertraline HCl [Zoloft] 25 mg PO DAILY 02/11/19 Tiotropium [place] [Spiriva Handihaler 5 Cap/Kit (18 Mcg/Cap)] 1 cap IH DAILY 02/11/19 Cephalexin Monohydrate [Keflex 500 mg Capsule] 500 mg PO Q8 #15 capsule 02/16/19 History of Present Illiness History of Present Illness: THEODORE ASKEW is a 78 year old female who is a patient of the [facility]. She has had a very difficult previous 2 weeks. She was actually in the [facility] emergency department 2 weeks ago and treated for UTI. Several days later she fell and hit her head at the [facility] and was sent to [facility] as a "trauma" patient. She was there for approximately a week. She was discharged on Thursday back to the ER. (yesterday) she fell and cut her leg and was treated at [facility]. She returned to the ER. Today she was experiencing nausea and vomiting as well as chest pain fever and chills. She was sent back from the ER to [place] for evaluation. Her white blood cell count is 20,000. She has a positive UA with a negative chest x-ray. She does have a lesion on her leg but there is no significant erythema noted. She is going to be admitted and worked up for possible focus of infection as well as IV fluids and general review of her wellbeing. Hospital Course Hospital Course: She has responded well to antibiotics and will finish a course of antibiotics for E. coli and Proteus had a run out of her urine recently. She is grown these out before. She has responded well to treatment so far. She had a couple of blood cultures that turned positive but it was felt that these were likely to be contaminants, because the antibiotics she has been on here would not have treated the organism in the blood, a coagulase-negative Staphylococcus, and repeat blood cultures have been negative despite not being on therapy for that specific organism. She was eating well for the first few days she was here, her oral intake has not been that good the last couple of days. Her son said that this has been an ongoing issue for her for quite some time. She sees Dr. Bernardo in the office and he has tried appetite stimulants. She was seen and evaluated by physical therapy who recommended alf placement for rehab. Her is currently at [facility] and that is where her son wanted her to go. A bed was obtained and she is being transferred today in stable condition. She has 5 more days of antibiotic treatment. Physical Exam Vital Signs: Temp Pulse Resp BP Pulse Ox 97.6 F 94 20 139/67 H 98 02/16/19 11:15 02/16/19 11:15 02/16/19 11:15 02/16/19 11:15 02/16/19 11:15 Intake & Output 02/15/19 02/16/19 02/17/19 06:59 06:59 06:59 Intake Total 3913 2944 1040 Output Total 2410 3770 Balance 1503 -826 1040 Weight 63.6 kg 68.4 kg General appearance: PRESENT: no acute distress, cooperative, disheveled Respiratory exam: PRESENT: clear to auscultation miguel, symmetrical, unlabored. ABSENT: accessory muscle use, chest wall tenderness, crackles, prolonged expiratory phas, rhonchi, tachypnea, wheezes Cardiovascular exam: PRESENT: RRR, +S1, +S2 Pulses: PRESENT: normal carotid pulses Vascular exam: PRESENT: normal capillary refill GI/Abdominal exam: PRESENT: normal bowel sounds, soft. ABSENT: distended, guarding, rebound, tenderness Extremities exam: ABSENT: clubbing, pedal edema Musculoskeletal exam: PRESENT: normal inspection. ABSENT: deformity Neurological exam: PRESENT: alert, awake, oriented to person Psychiatric exam: PRESENT: appropriate affect, normal mood Skin exam: PRESENT: dry, warm Results Laboratory Results: WBC 5.4 10^3/uL (4.0-10.5) 02/14/19 04:29 RBC 3.40 10^6/uL (3.72-5.28) L 02/14/19 04:29 Hgb 9.9 g/dL (12.0-15.5) L 02/14/19 04:29 Hct 29.1 % (36.0-47.0) L 02/14/19 04:29 MCV 85 fl (80-97) 02/14/19 04:29 MCH 29.1 pg (27.0-33.4) 02/14/19 04:29 MCHC 34.1 g/dL (32.0-36.0) 02/14/19 04:29 RDW 14.5 % (11.5-14.0) H 02/14/19 04:29 Plt Count 384 10^3/uL (150-450) 02/14/19 04:29 Lymph % (Auto) 28.4 % (13-45) 02/14/19 04:29 [place] % (Auto) 6.8 % (3-13) 02/14/19 04:29 Eos % (Auto) 4.3 % (0-6) 02/14/19 04:29 Baso % (Auto) 1.1 % (0-2) 02/14/19 04:29 Absolute Neuts (auto) 3.2 10^3/uL (1.7-8.2) 02/14/19 04:29 Absolute Lymphs (auto) 1.5 10^3/uL (0.5-4.7) 02/14/19 04:29 Absolute Monos (auto) 0.4 10^3/uL (0.1-1.4) 02/14/19 04:29 Absolute Eos (auto) 0.2 10^3/uL (0.0-0.6) 02/14/19 04:29 Absolute Basos (auto) 0.1 10^3/uL (0.0-0.2) 02/14/19 04:29 Total Counted 100 02/11/19 10:05 Seg Neutrophils % 59.4 % (42-78) 02/14/19 04:29 Seg Neuts % (Manual) 90 % (42-78) H 02/11/19 10:05 Band Neutrophils % 7 % (3-5) H 02/11/19 10:05 Lymphocytes % (Manual) 0 % (13-45) L 02/11/19 10:05 Monocytes % (Manual) 2 % (3-13) L 02/11/19 10:05 Eosinophils % (Manual) 0 % (0-6) 02/11/19 10:05 Basophils % (Manual) 1 % (0-2) 02/11/19 10:05 Abs Neuts (Manual) 19.7 10^3/uL (1.7-8.2) H 02/11/19 10:05 Abs Lymphs (Manual) 0.0 10^3/uL (0.5-4.7) L 02/11/19 10:05 Abs Monocytes (Manual) 0.4 10^3/uL (0.1-1.4) 02/11/19 10:05 Absolute Eos (Manual) 0.0 10^3/uL (0.0-0.6) 02/11/19 10:05 Abs Basophils (Manual) 0.2 10^3/uL (0.0-0.2) 02/11/19 10:05 Platelet Comment INCREASED 02/11/19 10:05 Anisocytosis SLIGHT 02/11/19 10:05 Ovalocytes SLIGHT 02/11/19 10:05 Schistocytes SLIGHT 02/11/19 10:05 Sodium 135.1 mmol/L (137-145) L 02/14/19 04:29 Potassium 4.2 mmol/L (3.6-5.0) 02/14/19 04:29 Chloride 105 mmol/L (98-107) 02/14/19 04:29 Carbon Dioxide 20 mmol/L (22-30) L 02/14/19 04:29 Anion Gap 10 (5-19) 02/14/19 04:29 BUN 12 mg/dL (7-20) 02/14/19 04:29 Creatinine 1.04 mg/dL (0.52-1.25) 02/14/19 04:29 Est GFR ( Amer) > 60 (>60) 02/14/19 04:29 Est GFR (MDRD) Non-Af 52 (>60) L 02/14/19 04:29 Glucose 103 mg/dL (75-110) 02/14/19 04:29 Lactic Acid 1.3 mmol/L (0.7-2.1) 02/11/19 12:44 Calcium 8.6 mg/dL (8.4-10.2) 02/14/19 04:29 Phosphorus 4.4 mg/dL (2.5-4.5) 02/14/19 04:29 Total Bilirubin 0.9 mg/dL (0.2-1.3) 02/11/19 10:05 Direct Bilirubin 0.5 mg/dL (0.0-0.4) H 02/11/19 10:05 Neonat Total Bilirubin Not Reportable 02/11/19 10:05 Neonat Direct Bilirubin Not Reportable 02/11/19 10:05 Neonat Indirect Bili Not Reportable 02/11/19 10:05 AST 99 U/L (14-36) H 02/11/19 10:05 ALT 52 U/L (<35) 02/11/19 10:05 Alkaline Phosphatase 216 U/L (38-126) H 02/11/19 10:05 Creatine Kinase 78 U/L (30-135) 02/11/19 10:05 CK-MB (CK-2) 0.32 ng/mL (<4.55) 02/11/19 10:05 Troponin I < 0.012 ng/mL 02/11/19 12:44 Total Protein 8.2 g/dL (6.3-8.2) 02/11/19 10:05 Albumin 3.8 g/dL (3.5-5.0) 02/11/19 10:05 TSH 5.86 uIU/mL (0.47-4.68) H 02/12/19 03:45 Urine Color GIANCARLO 02/11/19 13:08 Urine Appearance CLOUDY 02/11/19 13:08 Urine pH 5.0 (5.0-9.0) 02/11/19 13:08 Ur Specific [place] 1.030 02/11/19 13:08 Urine Protein 100 mg/dL (NEGATIVE) H 02/11/19 13:08 Urine Glucose (UA) NEGATIVE mg/dL (NEGATIVE) 02/11/19 13:08 Urine Ketones NEGATIVE mg/dL (NEGATIVE) 02/11/19 13:08 Urine Blood NEGATIVE (NEGATIVE) 02/11/19 13:08 Urine Nitrite NEGATIVE (NEGATIVE) 02/11/19 13:08 Urine Bilirubin SMALL (NEGATIVE) H 02/11/19 13:08 Urine Urobilinogen 2.0 mg/dL (<2.0) H 02/11/19 13:08 Ur Leukocyte Esterase TRACE (NEGATIVE) H 02/11/19 13:08 Urine WBC (Auto) 64 /HPF 02/11/19 13:08 Urine RBC (Auto) 13 /HPF 02/11/19 13:08 U Hyaline Cast (Auto) 48 /LPF 02/11/19 13:08 Urine Bacteria (Auto) TRACE /HPF 02/11/19 13:08 Squamous Epi Cells Auto 4 /HPF 02/11/19 13:08 U Non-Squamous Epis Auto 2 /HPF 02/11/19 13:08 Urine Mucus (Auto) OCC /LPF 02/11/19 13:08 Urine Ascorbic Acid 20 (NEGATIVE) H 02/11/19 13:08 02/11/19 02/11/19 10:05 12:44 CK-MB (CK-2) 0.32 Troponin I < 0.012 < 0.012 Impressions: Chest X-Ray 02/11/19 12:18 IMPRESSION: No acute cardiopulmonary process. Renal Ultrasound 02/12/19 00:00 IMPRESSION: No hydronephrosis. Bladder not well seen Plan Time Spent: Greater than 30 Minutes Stroke Is this a Stroke Patient?: No Acute Heart Failure - Is this a Heart Failure Patient?: No
[2019-02-16] MEDS: FAMOTIDINE 20 MG TABLET PO SCH (21:06)
[2019-02-16] MEDS: QUETIAPINE FUMARATE 25 MG TABLET PO SCH (21:06)
[2019-02-17] MEDS: HEPARIN SOD (PORCINE) 5,000 UNIT/ML 1 ML VIAL SUBCUT SCH ×2 (05:03→15:20)
[2019-02-17] MEDS: DEXTROSE 5%-1/2 NORMAL SALINE 1,000 ML IV PRN ×2 (05:03→12:08)
[2019-02-17] MEDS: LEVOTHYROXINE SODIUM 0.05 MG TABLET PO SCH (05:03)
[2019-02-17] MEDS: CHOLECALCIFEROL (D3) 1,000 UNIT (25 MCG) TABLET PO SCH (09:36)
[2019-02-17] MEDS: LISINOPRIL 10 MG TABLET PO SCH (09:37)
[2019-02-17] MEDS: SERTRALINE HCL 50 MG TABLET PO SCH (09:40)
[2019-02-17] MEDS: MEGESTROL ACETATE 20 MG TABLET PO SCH (09:44)
[2019-02-17] MEDS: NYSTATIN TOPICAL POWDER 15 GM TP SCH (09:51)
[2019-02-17] MEDS: MUPIROCIN CALCIUM 2% CREAM 15 GM TP SCH (09:52)
[2019-02-17] MEDS: CEFTRIAXONE 1 GM/D5W RTU 1 GM/50 ML RTUPB IV SCH (12:01)
[2019-02-17] MEDS: ACETAMINOPHEN 325 MG TABLET PO PRN (12:07)
[2019-02-17 12:37] VITALS: BP 148/76
== END 2019-02-17 16:00 | DRG 683 ==
LOC: ER 09:50 → EH 15:39 → 4N 20:24
PROVIDERS: ADMIT Hospitalist; ATTEND Hospitalist
DX: N17.9 Acute kidney failure, unspecified (principal); N39.0 Urinary tract infection, site not specified; Z16.19 Resistance to other specified beta lactam antibiotics; I10 Essential (primary) hypertension; I25.10 Atherosclerotic heart disease of native coronary artery without angina pectoris; E78.00 Pure hypercholesterolemia, unspecified; S81.811A Laceration without foreign body, right lower leg, initial encounter; E03.9 Hypothyroidism, unspecified; K21.9 Gastro-esophageal reflux disease without esophagitis; F03.90 Unspecified dementia, unspecified severity, without behavioral disturbance, psychotic disturbance, mood disturbance, and anxiety; F41.8 Other specified anxiety disorders; B96.20 Unspecified Escherichia coli [E. coli] as the cause of diseases classified elsewhere; B96.4 Proteus (mirabilis) (morganii) as the cause of diseases classified elsewhere; W18.30XA Fall on same level, unspecified, initial encounter; Y93.89 Activity, other specified; Y92.128 Other place in nursing home as the place of occurrence of the external cause; Z86.14 Personal history of Methicillin resistant Staphylococcus aureus infection; Z79.51 Long term (current) use of inhaled steroids; Z79.899 Other long term (current) drug therapy
CPT/HCPCS: 36415; 71045; 76770; 80048; 80053; 81001; 82550; 82553; 83605; 84100; 84443; 84484; 85025; 87040; 87077; 87086; 87150; 87186; 93005; 93010; 96361; 96365; 99285; J0696; J1644; J3490; J7030

== ENCOUNTER 2019-12-19 13:39 | Inpatient (IN) | payer MEDICARE, OTHER, MEDICAID ==
[2019-12-19] MEDS ORDERED: VANCOMYCIN HCL INJ 1000 MG VIAL IV ONE (14:35)
[2019-12-19] MEDS ORDERED: NORMAL SALINE 1000 ML 1,000 ML IV ONE ×3 (14:36→18:02)
--- NOTE | 2019-12-19 14:45 | ER Document Report ---
ED General - General Chief Complaint: Nausea/Vomiting/Diarrhea Stated Complaint: DIZZINESS Time Seen by Provider: 12/19/19 14:31 Primary Care Provider: LJ FITZPATRICK MD [Primary Care Provider] - Follow up as needed Notes: 79-year-old female was brought in for initially nausea vomiting and diarrhea. The patient was having difficulty breathing for EMS and on arrival here was tachycardic and had low sats. The patient has dementia and could not really participate in a good history she did states she was having difficulty breathing but did not tolerate the nonrebreather well and kept trying to rip the nonrebreather off. When I ask her if she is having trouble breathing she nods her head yes. She was not helpful when it came to vomiting or diarrhea the [facility] with that information but she did not admit to it. However there was some dried emesis on her clothes. As far as we know for EMS there is no history of any fevers. Patient other than difficulty breathing is voicing any other complaints she has a history of dementia at baseline as far as EMS knows the patient is a full code. TRAVEL OUTSIDE OF THE [place] IN LAST 30 DAYS: No - Related Data Allergies/Adverse Reactions: No Known Allergies Allergy (Verified 12/19/19 14:26) Past Medical History - Social History Smoking Status: Unknown if Ever Smoked Family History: Reviewed & Not Pertinent, CVA, Hyperlipidemia, Hypertension, Malignancy, Thyroid Disfunction - Past Medical History Cardiac Medical History: Reports: Hx Coronary Artery Disease, Hx Hypercholesterolemia, Hx Hypertension Denies: Hx Atrial Fibrillation, Hx Congestive Heart Failure, Hx Heart Attack Pulmonary Medical History: Reports: Hx Intubation Denies: Hx Asthma, Hx Bronchitis, Hx COPD, Hx Pneumonia, Hx Tuberculosis Neurological Medical History: Denies: Hx Seizures Endocrine Medical History: Reports: Hx Hypothyroidism Renal/ Medical History: Denies: Hx Peritoneal Dialysis Malignancy Medical History: Reports: Hx Breast Cancer GI Medical History: Reports: Hx Gastroesophageal Reflux Disease. Denies: Hx Hiatal Hernia, Hx Ulcer Musculoskeletal Medical History: Denies Hx Arthritis, Denies Hx Systemic Lupus Erythematosus Psychiatric Medical History: Reports: Hx Anxiety, Hx Dementia, Hx Depression Denies: Hx Bipolar Disorder, Hx Schizophrenia Traumatic Medical History: Reports: Hx Traumatic Brain Injury - Fell and hit her head last week Past Surgical History: Reports: Hx Cardiac Catheterization, Hx Cardiac Surgery - stents, Hx Cholecystectomy, Hx Coronary Stent. Denies: Hx Appendectomy, Hx Bowel Surgery, Hx Section, Hx Hysterectomy, Hx Mastectomy, Hx Tonsillectomy, Hx Tubal Ligation - Immunizations Immunizations up to date: Yes Hx Diphtheria, Pertussis, Tetanus Vaccination: Yes Hx Pneumococcal Vaccination: 03/30/11 Review of Systems - Review of Systems Constitutional: denies: Fever EENT: No symptoms reported Respiratory: Short of breath Gastrointestinal: Diarrhea, Nausea, Vomiting. denies: Blood in vomit, Black stools, Rectal bleeding Genitourinary: denies: Burning, Dysuria, Discharge Musculoskeletal: denies: Back pain Neurological/Psychological: Dementia. denies: Headaches -: Yes All other systems reviewed and negative Physical Exam - Vital signs Vitals: Resp Pulse Ox 31 H 97 12/19/19 14:30 12/19/19 14:30 - Notes Notes: GENERAL_APPEARANCE: Frail appearing, alert, cooperative, neatly ill-appearing VITALS: reviewed, see vital signs table. HEAD: no_swelling\tenderness on the head. EYES: PERRL, EOMI, conjunctiva_clear. NOSE: no_nasal_discharge. MOUTH: Dry mucous membranes THROAT: no_tonsilar_inflammation, no_airway_obstruction. no_lymphadenopathy NECK: supple, no_neck_tenderness, (-)thyromegaly. BACK: no_back_tenderness. CHEST_WALL: no_chest_tenderness. LUNGS: no_wheezing, no_rales, scattered_rhonchi, mild accessory muscle use, fair air exchange bilateral. HEART: normal_rate, normal_rhythm, normal_S1, normal_S2, (-)S3, (-)S4, no_murmur, no_rub. ABDOMEN: normal_BS, soft, no_abd_tenderness, (-)guarding, (-)rebound, no_organomegaly, no_abd_masses. EXTREMITIES: good pulses in all_extremities, no_swelling\tenderness in the extremities, no_edema. SKIN: warm, dry, good_color, no_rash. MENTAL_STATUS: speech_slow, oriented to person place but not time, normal_affect NEURO: Neg Motor or Sensory Deficits on exam, CN 2-12 intact, No cerbellar signs Course - Re-evaluation Re-evalutation: 12/19/19 14:45 79-year-old female comes in respiratory distress. The patient may have aspirated from vomiting. We will do a full septic work-up on the patient. Patient is tachycardic will do IV fluids. Will place her on BiPAP. ABG. As far as I can tell at the moment the patient is a full code. 12/19/19 18:06 The patient is having profuse diarrhea. We placed a rectal tube in. She has had 300 cc out we will send for C. difficile. It is very slimy and smelly. The patient's work of breathing has improved and is now on supplemental oxygen. She did not require BiPAP or any other modalities. Patient remains hypotensive and will continue to give IV fluids this appears to be volume. She patient does have a leukocytosis high lactic acid and received broad-spectrum antibiotics. We will get a CT scan abdomen and pelvis but likely will show pancolitis. Reprofusion Exam - 180 - ext still cool, diminished cap refill, LS slight ronchi 12/19/19 18:40 Spoke with son -- DNR arrived from F. DNR confirmed with son - no heroic measures 12/19/19 19:40 BP above 100 - pt improving 2nd lactic elevated Will Admit - Vital Signs Vital signs: Temp Pulse Resp BP Pulse Ox 28 H 100/79 90 L 12/19/19 15:30 12/19/19 15:30 12/19/19 15:30 - Laboratory Result Diagrams: 12/19/19 14:22 12/19/19 14:22 Laboratory results interpreted by me: 12/19/19 12/19/19 12/19/19 14:22 14:22 15:08 WBC 28.8 H RDW 15.2 H Plt Count 645 H Seg Neuts % (Manual) 86 H Lymphocytes % (Manual) 7 L Monocytes % (Manual) 0 L Abs Neuts (Manual) 25.9 H Abs Monocytes (Manual) 0.0 L Abs Basophils (Manual) 0.3 H Sodium 135.0 L Chloride 96 L BUN 34 H Creatinine 1.41 H Est GFR ( Amer) 44 L Est GFR (MDRD) Non-Af 36 L Glucose 121 H Lactic Acid 5.5 H Calcium 10.9 H Direct Bilirubin 0.8 H 12/19/19 18:14 WBC RDW Plt Count Seg Neuts % (Manual) Lymphocytes % (Manual) Monocytes % (Manual) Abs Neuts (Manual) Abs Monocytes (Manual) Abs Basophils (Manual) Sodium Chloride BUN Creatinine Est GFR ( Amer) Est GFR (MDRD) Non-Af Glucose Lactic Acid 6.6 H Calcium Direct Bilirubin - Diagnostic Test Radiology reviewed: Reports reviewed Radiology results interpreted by me: 12/19/19 19:40 Chest X-Ray 12/19/19 14:35 IMPRESSION: Probable chronic right upper lobe interstitial airspace disease. No evidence of an acute process. 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 Dependent atelectasis in the lower lobes. No acute finding in the abdomen or pelvis. - EKG Interpretation by Me EKG shows normal: Sinus rhythm Rate: Tachycardia Discharge - Discharge Clinical Impression: ANTONELLA (acute kidney injury) Hypotension Qualifiers: Hypotension type: unspecified hypotension type Qualified Code(s): I95.9 - Hypotension, unspecified Sepsis Qualifiers: Acute renal failure type: unspecified Severe sepsis shock status: with septic shock Diarrhea Qualifiers: Diarrhea type: infectious Qualified Code(s): A09 - Infectious gastroenteritis and colitis, unspecified Condition: Serious Disposition: ADMITTED INPATIENT Admitting Provider: Kamilah (Hospitalist) Unit Admitted: Medical Floor Referrals: LJ FITZPATRICK MD [Primary Care Provider] - Follow up as needed
[2019-12-19 14:55] LABS: HEMATOCRIT 42.5 % (36.0-47.0); HEMOGLOBIN 14.7 g/dL (12.0-15.5); MEAN CORPUSCULAR HEMOGLOBIN 30.6 pg (27.0-33.4); MEAN CORPUSCULAR HGB CONC 34.6 g/dL (32.0-36.0); MEAN CORPUSCULAR VOLUME 88 fl (80-97); RED BLOOD COUNT 4.81 10^6/uL (3.72-5.28); RED CELL DISTRIBUTION WIDTH 15.2 % (11.5-14.0); WHITE BLOOD COUNT 28.8 10^3/uL (4.0-10.5)
[2019-12-19 15:03] LABS: ALBUMIN 4.4 g/dL (3.5-5.0); ALKALINE PHOSPHATASE 126 U/L (38-126); ANION GAP 17 (5-19); ASPARTATE AMINO TRANSFERASE 33 U/L (14-36); BILIRUBIN,DIRECT 0.8 mg/dL (0.0-0.4); BILIRUBIN,TOTAL 1.2 mg/dL (0.2-1.3); BLOOD UREA NITROGEN 34 mg/dL (7-20); CALCIUM 10.9 mg/dL (8.4-10.2); CARBON DIOXIDE 22 mmol/L (22-30); CHLORIDE 96 mmol/L (98-107); CREATINE KINASE 38 U/L (30-135); GLUCOSE 121 mg/dL (75-110); POTASSIUM 4.7 mmol/L (3.6-5.0); TOTAL PROTEIN 8.1 g/dL (6.3-8.2)
[2019-12-19 15:14] LABS: CREATINE KINASE MB 0.72 ng/mL (<4.55)
[2019-12-19 15:16] LABS: TROPONIN I < 0.012 ng/mL
--- NOTE | 2019-12-19 15:17 | RADIOLOGY REPORT (SQ) ---
EXAM DESCRIPTION: CHEST SINGLE VIEW IMAGES COMPLETED DATE/TIME: 12/19/2019 3:07 pm REASON FOR STUDY: SOB COMPARISON: 02/11/2019 EXAM PARAMETERS: NUMBER OF VIEWS: One view. TECHNIQUE: Single frontal radiographic view of the chest acquired. RADIATION DOSE: NA LIMITATIONS: None. FINDINGS: LUNGS AND PLEURA: Probable chronic interstitial changes in the right upper lobe allowing f or slight differences technique. No effusions. No pneumothorax. MEDIASTINUM AND HILAR STRUCTURES: No masses. Contour normal. HEART AND VASCULAR STRUCTURES: Heart normal in size. Normal vasculature. BONES: No acute findings. HARDWARE: None in the chest. OTHER: No other significant finding. IMPRESSION: Probable chronic right upper lobe interstitial airspace disease. No evidence of an acut e process. TECHNICAL DOCUMENTATION: JOB ID: [id number] 2010 [employer]- All Rights Reserved Reading location - IP/workstation name: [email or web address]
[2019-12-19 15:32] LABS: ABSOLUTE LYMPHOCYTES# (MANUAL) 2.6 10^3/uL (0.5-4.7); BAND NEUTROPHILS % (MANUAL) 4 % (3-5); BASOPHILS % (MANUAL) 1 % (0-2); EOSINOPHILS % (MANUAL) 0 % (0-6); LYMPHOCYTES % (MANUAL) 7 % (13-45); MONOCYTES % (MANUAL) 0 % (3-13); SEGMENTED NEUTROPHILS % (MAN) 86 % (42-78); TOTAL CELLS COUNTED 100
[2019-12-19 15:34] LABS: ANISOCYTOSIS SLIGHT; PLATELET CLUMPS PRESENT; PLATELET COMMENT INCREASED
[2019-12-19 15:36] LABS: PLATELET COUNT 645 10^3/uL (150-450)
[2019-12-19] MEDS: CEFEPIME 2 GM/D5W RTU 2 GM/50 ML RTUPB IV SCH (17:53)
--- NOTE | 2019-12-19 18:46 | RADIOLOGY REPORT (SQ) ---
EXAM DESCRIPTION: CT ABD/PELVIS NO ORAL OR IV IMAGES COMPLETED DATE/TIME: 12/19/2019 6:29 pm REASON FOR STUDY: abd pain COMPARISON: 2013 TECHNIQUE: CT scan of the abdomen and pelvis performed without intravenous or oral contrast. Images reviewed with lung, soft tissue, and bone windows. Reconstructed coronal and sagittal MPR images revi ewed. All images stored on PACS. All CT scanners at this facility use dose modulation, iterative reconstruction, and/or weight based d osing when appropriate to reduce radiation dose to as low as reasonably achievable (ALARA). [facility]: Dose Right [facility]: CareDose [facility]: Dose Right [facility]: Teradose 4D [facility]: [employer] RADIATION DOSE: CT Rad equipment meets quality standard of care and radiation dose reduction techniq ues were employed. CTDIvol: 11.7 mGy. DLP: 657 mGy-cm.mGy. LIMITATIONS: None. FINDINGS: LOWER CHEST: Dependent atelectasis in the lung bases. NON-CONTRASTED LIVER, SPLEEN, ADRENALS: Evaluation limited by lack of IV contrast. No identified sign ificant masses. PANCREAS: No masses. No peripancreatic inflammatory changes. GALLBLADDER: Surgically absent. RIGHT KIDNEY AND URETER: No suspicious masses. Assessment limited by lack of IV contrast. No signif icant calcifications. No hydronephrosis or hydroureter. LEFT KIDNEY AND URETER: No suspicious masses. Assessment limited by lack of IV contrast. No signifi cant calcifications. No hydronephrosis or hydroureter. 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 BOWEL AND PERITONEAL CAVITY: No obvious masses or inflammatory changes. No free fluid. APPENDIX: Surgically absent. PELVIS, BLADDER, AND ABDOMINAL WALL:The bladder is not well filled and therefore not well evaluated. No pelvic masses or fluid collections. BONES: No significant findings. OTHER: No other significant finding. 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 Dependent atelectasis in the lower lob es. No acute finding in the abdomen or pelvis. COMMENT: AAA Size: Follow-up Recommendation 3.0-3.4 cm Recommended followup every 3 years. *Based upon the ACR White Paper in the J Am Esteban Radiol 2013;10 (10):789-794. *For aortas of maximum diameter of 2.6-2.9 cm meeting the criteria for AAA (?1.5 x proximal normal se gment) Quality ID # [id number]: Final reports with documentation of one or more dose reduction techniques (e.g., Au tomated exposure control, adjustment of the mA and/or kV according to patient size, use of iterative reconstruction technique) TECHNICAL DOCUMENTATION: JOB ID: [id number] 2010 [employer]- All Rights Reserved Reading location - IP/workstation name: [email or web address]
[2019-12-19] MEDS ORDERED: LORAZEPAM INJ 2 MG/1 ML VIAL IV ONE (18:53)
[2019-12-19] MEDS ORDERED: ACETAMINOPHEN 650 MG SUPP.RECT PR PRN (20:17)
[2019-12-19] MEDS ORDERED: LORAZEPAM INJ 2 MG/1 ML VIAL IV PRN (20:17)
[2019-12-19] MEDS ORDERED: LEVALBUTEROL HCL NEB 0.63 MG/3 ML AMPUL NEB PRN (20:17)
[2019-12-19] MEDS ORDERED: ACETAMINOPHEN 325 MG TABLET PO PRN (20:17)
[2019-12-19] MEDS ORDERED: PROMETHAZINE HCL INJ 25 MG/1 ML VIAL IV PRN (20:17)
[2019-12-19] MEDS ORDERED: DEXTROSE 5%-NORMAL SALINE 1,000 ML IV PRN (20:18)
[2019-12-19 21:33] LABS: C DIFFICILE GDH NEGATIVE (NEGATIVE)
[2019-12-19 21:44] LABS: APPEARANCE,URINE CLOUDY; BILIRUBIN,URINE SMALL (NEGATIVE); COLOR,URINE AMBER; GLUCOSE, URINE NEGATIVE (NEGATIVE); KETONES,URINE TRACE mg/dL (NEGATIVE); LEUKOCYTE ESTERASE,URINE MODERATE (NEGATIVE); NITRITE,URINE NEGATIVE (NEGATIVE); PROTEIN,URINE 100 mg/dL (NEGATIVE)
[2019-12-20] MEDS ORDERED: METRONIDAZOLE 500 MG/NS RTU 500 MG/100 ML RTUPB IV SCH
[2019-12-20] MEDS: CEFEPIME 2 GM/D5W RTU 2 GM/50 ML RTUPB IV SCH (00:49)
[2019-12-20] MEDS: VANCOMYCIN HCL INJ 500 MG VIAL PO SCH ×2 (00:49→01:36)
[2019-12-20] MEDS: HEPARIN SOD (PORCINE) 5,000 UNIT/ML 1 ML VIAL SUBCUT SCH ×4 (00:49→21:36)
[2019-12-20] MEDS: PANTOPRAZOLE SODIUM 40 MG VIAL IV SCH ×3 (01:35→21:36)
--- NOTE | 2019-12-20 02:57 | PDOC H&P ---
History of Present Illness Admission Date/PCP: 12/19/2019 19:54 LJ FITZPATRICK MD Patient complains of: Diarrhea History of Present Illness: THEODORE ASKEW is a 79 year old female who presented to the emergency room from the shelter via EMS with acute diarrhea. care home staff reported patient having copious diarrhea accompanied by vomiting and associated with tachycardia, hypotension and hypoxia. Patient has dementia and cannot contribute to her medical history. In the emergency room the patient was found to be tachycardic and hypoxic requiring supplemental oxygen to maintain an adequate O2 saturation and IV fluid resuscitation to improve her blood pressure and normalize her heart rate. She was noted to have continued copious watery diarrhea stools with a foul order. Her son was contacted by the emergency room provider and gave specific instructions that his mother was to be DNR/DNI/no pressors or surgery or heroic measures. Patient was subsequently admitted to the hospital for further evaluation treatment. Past Medical History Cardiac Medical History: Reports: Coronary Artery Disease, Hyperlipidema, Hypertension Denies: Atrial Fibrillation, Congestive Heart Failure, Myocardial Infarction Pulmonary Medical History: Reports: Intubation, Respiratory Failure Denies: Asthma, Bronchitis, Chronic Obstructive Pulmonary Disease (COPD), Pneumonia, Tuberculosis EENT Medical History: Reports: Eyes - Eyeglasses Denies: Ears - Hearing aids Neurological Medical History: Denies: Hemorrhagic CVA, Ischemic CVA, Seizures Endocrine Medical History: Reports: Hypothyroidism Denies: Diabetes Mellitus Type 1, Hyperthyroidism Renal/ Medical History: Reports: Other - Frequent urinary tract infection Denies: Chronic Kidney Disease, Nephrolithiasis Malignancy Medical History: Reports: Breast Cancer GI Medical History: Reports: Gastroesophageal Reflux Disease, Other - Colon polyp, gastric ulcer Denies: Cirrhosis, Hepatitis, Hiatal Hernia Musculoskeltal Medical History: Denies: Arthritis, Fibromyalgia Skin Medical History: Denies: Eczema, Psoriasis Psychiatric Medical History: Reports: Dementia, Depression Denies: Alcohol Dependency, Bipolar Disorder, Substance Abuse, Tobacco Dependency Traumatic Medical History: Reports: None Hematology: Reports: Anemia Denies: Bleeding Tendencies Infectious Medical History: Reports: None Past Surgical History Past Surgical History: Reports: Cardiac Catheterization, Cholecystectomy, Coronary Stent, Mastectomy - Right, Orthopedic Surgery - Left hip fracture repair, Other - Colonoscopy, EGD Social History Information [facility] Lives with: [facility] Smoking Status: Former Smoker Electronic Cigarette use?: No Frequency of Alcohol Use: None Hx Recreational Drug Use: No Drugs: None Hx Prescription Drug Abuse: No - Advance Directive Resuscitation Status: Do Not Resuscitate Surrogate healthcare decision maker:: Yuniel Askew Family History Family History: CVA, Hyperlipidemia, Hypertension, Malignancy, Thyroid Disfunction Parental Family History Reviewed: Yes Children Family History Reviewed: No Sibling(s) Family History Reviewed.: Yes Medication/Allergy Home Medications: Cholecalciferol (Vitamin D3) [Vitamin D3 1000 Unit Tablet] 1,000 unit PO DAILY 02/11/19 Lanolin Alcohol/Mo/W.pet/[place] [Minerin Creme] 1 applic TP DAILY 02/11/19 Levothyroxine Sodium [Synthroid 0.05 mg Tablet] 50 mcg PO Q6AM 02/11/19 Lisinopril [Prinivil 10 mg Tablet] 5 mg PO DAILY 02/11/19 Omeprazole 20 mg PO Q6AM 02/11/19 Quetiapine Fumarate [Seroquel] 75 mg PO QHS 02/11/19 Tiotropium [place] [Spiriva Handihaler 5 Cap/Kit (18 Mcg/Cap)] 1 cap IH DAILY 02/11/19 Acetaminophen [Tylenol] 650 mg PO Q4HP PRN 12/19/19 Bisacodyl [Dulcolax 10 mg Supp.rect] 10 mg CO DAILYP PRN 12/19/19 Mag Hydrox/Al Hydrox/Simeth [Maalox Plus Susp 30 Udcup] 20 ml PO Q4HP PRN 12/19/19 Magnesium Hydroxide [Milk of Magnesia 30 ml Udcup] 30 ml PO HSP PRN 12/19/19 Megestrol Acetate [Megace Kelly 400 mg/10 ml Udcup] 10 ml PO DAILY 12/19/19 Ondansetron [Zofran Odt 4 mg Tablet] 4 mg PO Q6HP PRN 12/19/19 Quetiapine Fumarate [Seroquel 25 mg Tablet] 25 mg PO DAILY 12/19/19 Sennosides [Senna] 17.2 mg PO QHS 12/19/19 Allergies/Adverse Reactions: No Known Allergies Allergy (Verified 12/19/19 14:26) Review of Systems ROS unobtainable: Due to mental status - Dementia Physical Exam Vital Signs: Temp Pulse Resp BP Pulse Ox 28 H 100/79 90 L 12/19/19 15:30 12/19/19 15:30 12/19/19 15:30 Intake & Output 12/17/19 12/18/19 12/19/19 23:59 23:59 23:59 Intake Total 2300 Balance 2300 General appearance: PRESENT: no acute distress, cooperative, other - Appears ill Head exam: PRESENT: atraumatic, normocephalic Eye exam: PRESENT: conjunctiva pink. ABSENT: conjunctival injection, scleral icterus Ear exam: PRESENT: normal external ear exam. ABSENT: bleeding, drainage Mouth exam: PRESENT: dry mucosa, neck supple Neck exam: ABSENT: thyromegaly, tracheal deviation Respiratory exam: PRESENT: clear to auscultation miguel, symmetrical, tachypnea Cardiovascular exam: PRESENT: RRR, tachycardia. ABSENT: clicks, gallop, rubs Pulses: PRESENT: normal radial pulses, normal dorsalis pedis pul Vascular exam: PRESENT: normal capillary refill. ABSENT: pallor GI/Abdominal exam: PRESENT: hypoactive bowel sounds, soft Rectal exam: PRESENT: deferred Extremities exam: ABSENT: joint swelling, pedal edema Musculoskeletal exam: ABSENT: deformity, dislocation Neurological exam: PRESENT: altered - Confused/poorly oriented, CN II-XII grossly intact Psychiatric exam: PRESENT: depressed, flat affect Skin exam: PRESENT: dry, intact, warm. ABSENT: jaundice, rash, urticaria Results Laboratory Results: 12/19/19 14:22 12/19/19 14:22 12/19/19 12/19/19 12/19/19 14:22 14:22 15:08 WBC 28.8 H RBC 4.81 Hgb 14.7 Hct 42.5 MCV 88 MCH 30.6 MCHC 34.6 RDW 15.2 H Plt Count 645 H Seg Neutrophils % Not Reportable Sodium 135.0 L Potassium 4.7 Chloride 96 L Carbon Dioxide 22 Anion Gap 17 BUN 34 H Creatinine 1.41 H Est GFR ( Amer) 44 L Glucose 121 H Lactic Acid 5.5 H Calcium 10.9 H Total Bilirubin 1.2 AST 33 Alkaline Phosphatase 126 Total Protein 8.1 Albumin 4.4 12/19/19 18:14 WBC RBC Hgb Hct MCV MCH MCHC RDW Plt Count Seg Neutrophils % Sodium Potassium Chloride Carbon Dioxide Anion Gap BUN Creatinine Est GFR ( Amer) Glucose Lactic Acid 6.6 H Calcium Total Bilirubin AST Alkaline Phosphatase Total Protein Albumin 12/19/19 12/19/19 14:22 14:22 Creatine Kinase 38 CK-MB (CK-2) 0.72 Troponin I < 0.012 Impressions: Chest X-Ray 12/19/19 14:35 IMPRESSION: Probable chronic right upper lobe interstitial airspace disease. No evidence of an acute process. 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 Dependent atelectasis in the lower lobes. No acute finding in the abdomen or pelvis. Assessment and Plan - Diagnosis (1) Sepsis Qualifiers: Sepsis type: sepsis due to unspecified organism Sepsis acute organ dysfunction status: with acute organ dysfunction Severe sepsis acute organ dysfunction type: acute renal failure Acute renal failure type: unspecified Severe sepsis shock status: with septic shock Qualified Code(s): A41.9 - Sepsis, unspecified organism; R65.21 - Severe sepsis with septic shock; N17.9 - Acute kidney failure, unspecified Is this a current diagnosis for this admission?: Yes (2) Diarrhea Qualifiers: Diarrhea type: presumed infectious Qualified Code(s): R19.7 - Diarrhea, unspecified Is this a current diagnosis for this admission?: Yes (3) Leukocytosis Qualifiers: Leukocytosis type: unspecified Qualified Code(s): D72.829 - Elevated white blood cell count, unspecified Is this a current diagnosis for this admission?: Yes (4) Hypotension Qualifiers: Hypotension type: unspecified hypotension type Qualified Code(s): I95.9 - Hypotension, unspecified Is this a current diagnosis for this admission?: Yes (5) ANTONELLA (acute kidney injury) Is this a current diagnosis for this admission?: Yes (6) Dementia Qualifiers: Dementia type: Alzheimer's disease Alzheimer's disease onset: unspecified onset Dementia behavioral disturbance: without behavioral disturbance Qualified Code(s): G30.9 - Alzheimer's disease, unspecified; F02.80 - Dementia in other diseases classified elsewhere without behavioral disturbance Is this a current diagnosis for this admission?: Yes - Plan Summary Summary: Patient will be admitted to the medical floor where she will receive routine supportive and symptomatic cares. She will receive IV fluids utilizing D5NS at 167 mL/h. She will receive Ativan 1 mg IV every 4 hours as needed anxiety or restlessness. Stool cultures, C. difficile and O&P are pending. Patient will receive oral vancomycin and will also initially be treated with IV metronidazole. CBCs, metabolic profiles and additional radiographic and/or laboratory evaluations will be obtained as needed. - Time Time Spent with patient: Less than 15 minutes Medications reviewed and adjusted accordingly: Yes Anticipated Discharge Disposition: Assisted Facility Anticipated Discharge Timeframe: within 72 hours - Inpatient Certification Based on my medical assessment, after consideration of the patient's comorbidities, presenting symptoms, or acuity I expect that the services needed warrant INPATIENT care.: Yes I certify that my determination is in accordance with my understanding of Medicare's requirements for reasonable and necessary INPATIENT services [42 CFR 412.3e].: Yes Medical Necessity: Need For IV Fluids
[2019-12-20] MEDS ORDERED: CEFEPIME 2 GM/D5W RTU 2 GM/50 ML RTUPB IV SCH (06:00)
[2019-12-20 06:39] LABS: ANION GAP 10 (5-19); BLOOD UREA NITROGEN 37 mg/dL (7-20); CALCIUM 8.7 mg/dL (8.4-10.2); CARBON DIOXIDE 17 mmol/L (22-30); CHLORIDE 108 mmol/L (98-107); GLUCOSE 90 mg/dL (75-110); POTASSIUM 4.6 mmol/L (3.6-5.0)
[2019-12-20 06:44] LABS: HEMATOCRIT 39.4 % (36.0-47.0); HEMOGLOBIN 13.2 g/dL (12.0-15.5); MEAN CORPUSCULAR HEMOGLOBIN 29.9 pg (27.0-33.4); MEAN CORPUSCULAR HGB CONC 33.5 g/dL (32.0-36.0); MEAN CORPUSCULAR VOLUME 89 fl (80-97); PLATELET COUNT 405 10^3/uL (150-450); RED BLOOD COUNT 4.41 10^6/uL (3.72-5.28); RED CELL DISTRIBUTION WIDTH 15.2 % (11.5-14.0); WHITE BLOOD COUNT 26.8 10^3/uL (4.0-10.5)
[2019-12-20] MEDS ORDERED: MAG HYDROX/AL HYDROX/SIMETH SUSP 30 ML UDCUP PO PRN (07:47)
--- NOTE | 2019-12-20 08:28 | EKG REPORT ---
SEVERITY:- ABNORMAL ECG - SINUS TACHYCARDIA LEFT VENTRICULAR HYPERTROPHY PROBABLE INFERIOR INFARCT, AGE INDETERMINATE : Confirmed by: Angelina Marinelli MD 20-Dec-2019 08:26:53
[2019-12-20] MEDS ORDERED: VANCOMYCIN HCL 750 MG in DEXTROSE 5%-WATER 250 ML IV SCH (09:00)
[2019-12-20] MEDS: MEGESTROL ACETATE SUSP 400 MG/10 ML UDCUP PO SCH (09:53)
[2019-12-20] MEDS: CEFEPIME HCL 2 GM in DEXTROSE 5%-WATER 50 ML IV SCH (09:54)
[2019-12-20] MEDS: QUETIAPINE FUMARATE 25 MG TABLET PO SCH (09:54)
[2019-12-20] MEDS: CHOLECALCIFEROL (D3) 1,000 UNIT (25 MCG) TABLET PO SCH (09:54)
[2019-12-20] MEDS ORDERED: CEFEPIME HCL 2 GM in DEXTROSE 5%-WATER 50 ML IV SCH (10:00)
[2019-12-20] MEDS ORDERED: VANCOMYCIN HCL INJ 1000 MG VIAL IV SCH (10:00)
--- NOTE | 2019-12-20 11:46 | PDOC PROGRESS REPORT ---
Subjective Progress Note for:: 12/20/19 Subjective:: Patient does not have any complaints today but is notably moans when lower abdomen bilaterally are palpated. She denies any fevers or chills. Currently does not know where she is. Reason For Visit: DIARRHEA,ACUTE RESPIRATORY FAILURE WITH HYPOXIA Physical Exam Vital Signs: Temp Pulse Resp BP Pulse Ox 97.7 F 113 H 16 113/75 100 12/20/19 04:45 12/20/19 10:38 12/20/19 10:38 12/20/19 04:45 12/20/19 10:38 Intake & Output 12/19/19 12/20/19 12/21/19 06:59 06:59 06:59 Intake Total 4219 541 Balance 4219 541 Weight 68.1 kg 68.1 kg General appearance: PRESENT: no acute distress, cooperative Neck exam: ABSENT: JVD Respiratory exam: PRESENT: symmetrical, tachypnea, unlabored. ABSENT: accessory muscle use, wheezes Cardiovascular exam: PRESENT: +S1, +S2, tachycardia. ABSENT: irregular rhythm GI/Abdominal exam: PRESENT: guarding - Mild voluntary guarding noted on palpation of lower quadrants, soft, tenderness - Right lower and left lower quadrants. ABSENT: rebound, rigid Neurological exam: PRESENT: alert, awake, oriented to person. ABSENT: oriented to place, oriented to time, oriented to situation Psychiatric exam: PRESENT: anxious. ABSENT: agitated Focused psych exam: ABSENT: pressured speech Skin exam: ABSENT: jaundice Results Laboratory Results: 12/20/19 05:47 12/20/19 05:47 12/19/19 12/19/19 12/19/19 14:22 14:22 15:08 WBC 28.8 H RBC 4.81 Hgb 14.7 Hct 42.5 MCV 88 MCH 30.6 MCHC 34.6 RDW 15.2 H Plt Count 645 H Seg Neutrophils % Not Reportable Sodium 135.0 L Potassium 4.7 Chloride 96 L Carbon Dioxide 22 Anion Gap 17 BUN 34 H Creatinine 1.41 H Est GFR ( Amer) 44 L Glucose 121 H Lactic Acid 5.5 H Calcium 10.9 H Magnesium Total Bilirubin 1.2 AST 33 Alkaline Phosphatase 126 Total Protein 8.1 Albumin 4.4 TSH Urine Color Urine Appearance Urine pH Ur Specific [place] Urine Protein Urine Glucose (UA) Urine Ketones Urine Blood Urine Nitrite Ur Leukocyte Esterase Urine WBC (Auto) Urine RBC (Auto) 12/19/19 12/19/19 12/19/19 18:14 21:14 21:24 WBC RBC Hgb Hct MCV MCH MCHC RDW Plt Count Seg Neutrophils % Sodium Potassium Chloride Carbon Dioxide Anion Gap BUN Creatinine Est GFR ( Amer) Glucose Lactic Acid 6.6 H 5.5 H Calcium Magnesium Total Bilirubin AST Alkaline Phosphatase Total Protein Albumin TSH Urine Color GIANCARLO Urine Appearance CLOUDY Urine pH 5.0 Ur Specific [place] 1.020 Urine Protein 100 H Urine Glucose (UA) NEGATIVE Urine Ketones TRACE H Urine Blood SMALL H Urine Nitrite NEGATIVE Ur Leukocyte Esterase MODERATE H Urine WBC (Auto) >182 Urine RBC (Auto) 12/20/19 12/20/19 12/20/19 01:31 05:47 05:47 WBC 26.8 H RBC 4.41 Hgb 13.2 Hct 39.4 MCV 89 MCH 29.9 MCHC 33.5 RDW 15.2 H Plt Count 405 Seg Neutrophils % Sodium Potassium Chloride Carbon Dioxide Anion Gap BUN Creatinine Est GFR ( Amer) Glucose Lactic Acid 4.0 H 3.9 H Calcium Magnesium Total Bilirubin AST Alkaline Phosphatase Total Protein Albumin TSH Urine Color Urine Appearance Urine pH Ur Specific [place] Urine Protein Urine Glucose (UA) Urine Ketones Urine Blood Urine Nitrite Ur Leukocyte Esterase Urine WBC (Auto) Urine RBC (Auto) 12/20/19 12/20/19 05:47 05:47 WBC RBC Hgb Hct MCV MCH MCHC RDW Plt Count Seg Neutrophils % Sodium 135.1 L Potassium 4.6 Chloride 108 H Carbon Dioxide 17 L Anion Gap 10 BUN 37 H Creatinine 1.58 H Est GFR ( Amer) 38 L Glucose 90 Lactic Acid Calcium 8.7 Magnesium 2.7 H Total Bilirubin AST Alkaline Phosphatase Total Protein Albumin TSH 3.70 Urine Color Urine Appearance Urine pH Ur Specific [place] Urine Protein Urine Glucose (UA) Urine Ketones Urine Blood Urine Nitrite Ur Leukocyte Esterase Urine WBC (Auto) Urine RBC (Auto) 12/19/19 12/19/19 14:22 14:22 Creatine Kinase 38 CK-MB (CK-2) 0.72 Troponin I < 0.012 Impressions: Chest X-Ray 12/19/19 14:35 IMPRESSION: Probable chronic right upper lobe interstitial airspace disease. No evidence of an acute process. 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 Dependent atelectasis in the lower lobes. No acute finding in the abdomen or pelvis. Assessment and Plan - Diagnosis (1) Acute UTI (urinary tract infection) Is this a current diagnosis for this admission?: Yes Plan: Notably has grown Proteus and E. coli in the past. Will continue cefepime. Urine culture is pending. (2) Sepsis Qualifiers: Sepsis type: sepsis due to unspecified organism Sepsis acute organ dysfunction status: with acute organ dysfunction Severe sepsis acute organ dysfunction type: acute renal failure Acute renal failure type: unspecified Severe sepsis shock status: with septic shock Qualified Code(s): A41.9 - Sepsis, unspecified organism; R65.21 - Severe sepsis with septic shock; N17.9 - Acute kidney failure, unspecified Is this a current diagnosis for this admission?: Yes Plan: Notably septic but still trying to pinpoint the exact cause of patient's infection. Does have a UTI which is being treated for. Also has diarrhea with lower abdominal tenderness. Abdominal CT without contrast was unrevealing but did show that appendix is surgically absent. Receiving cefepime for treatment of UTI. Receiving Flagyl for treatment of concern for possible colitis. Continue IV fluids (3) Lactic acidosis Is this a current diagnosis for this admission?: Yes Plan: Secondary to sepsis. Monitor lactic acid level with IV fluids. (4) Diarrhea Qualifiers: Diarrhea type: presumed infectious Qualified Code(s): R19.7 - Diarrhea, unspecified Is this a current diagnosis for this admission?: Yes Plan: C. difficile was negative. Dry abdominal CT was ordered revealing. Possibly could have enterocolitis. Continue cefepime and Flagyl for now. Stool studies are pending. (5) ANTONELLA (acute kidney injury) Is this a current diagnosis for this admission?: Yes Plan: IV fluid hydration. Creatinine is 1.58 today. Repeat BMP in the morning. (6) Hypotension Qualifiers: Hypotension type: unspecified hypotension type Qualified Code(s): I95.9 - Hypotension, unspecified Is this a current diagnosis for this admission?: Yes Plan: Resolved at this time. (7) Right upper lobe pulmonary infiltrate Is this a current diagnosis for this admission?: Yes Plan: Notable infiltrate in right upper lobe which appears interstitial on chronic. W ill check PPD and QuantiFERON gold. We will get a chest CT for better assessment. (8) Atelectasis Is this a current diagnosis for this admission?: Yes Plan: Incentive spirometer (9) Dementia Qualifiers: Dementia type: Alzheimer's disease Alzheimer's disease onset: unspecified onset Dementia behavioral disturbance: without behavioral disturbance Qualified Code(s): G30.9 - Alzheimer's disease, unspecified; F02.80 - Dementia in other diseases classified elsewhere without behavioral disturbance Is this a current diagnosis for this admission?: Yes - Time Time Spent with patient: 15-24 minutes Anticipated Discharge Disposition: [facility] Facility Anticipated Discharge Timeframe: within 72 hours
[2019-12-20] MEDS: METRONIDAZOLE 500 MG/NS RTU 500 MG/100 ML RTUPB IV SCH ×2 (12:46→17:03)
[2019-12-20] MEDS: NORMAL SALINE 1000 ML 1,000 ML IV PRN (12:47)
[2019-12-20] MEDS ORDERED: TUBERCULIN,PURIF.PROT.DERIV. 5 TU/0.1 ML TEST 1 ML VIAL ID ONE (14:00)
--- NOTE | 2019-12-20 14:40 | RADIOLOGY REPORT (SQ) ---
EXAM DESCRIPTION: CT CHEST WITHOUT IMAGES COMPLETED DATE/TIME: 12/20/2019 2:01 pm REASON FOR STUDY: rul interstial opacity. ? if cavitary/granuloma COMPARISON: 2012 CT. Chest x-ray 12/19/2019 TECHNIQUE: CT scan performed of the chest without intravenous contrast. Images reviewed with lung, soft tissue and bone windows. Reconstructed coronal and sagittal MPR images reviewed. All images st ored on PACS. All CT scanners at this facility use dose modulation, iterative reconstruction, and/or weight based d osing when appropriate to reduce radiation dose to as low as reasonably achievable (ALARA). [facility]: Dose Right [facility]: CareDose [facility]: Dose Right [facility]: Teradose 4D [facility]: Smart LineRate Systems RADIATION DOSE: CT Rad equipment meets quality standard of care and radiation dose reduction techniq ues were employed. CTDIvol: 16.6 mGy. DLP: 537 mGy-cm. mGy. LIMITATIONS: No technical limitations. FINDINGS: LUNGS AND PLEURA: Mild ground-glass opacification in the upper lobes. Mild atelectatic ch anges in the lung bases. HILAR AND MEDIASTINAL STRUCTURES: No identified masses or abnormal nodes. No obvious aneurysm. HEART AND VASCULAR STRUCTURES: No aneurysm or pericardial effusion. Extensive coronary artery calcif ications. UPPER ABDOMEN: No significant findings. Limited exam. THYROID AND OTHER SOFT TISSUES: No masses. No adenopathy. BONES: No significant finding. HARDWARE: None in the chest. OTHER: No other significant findings. IMPRESSION: Mild ground-glass opacification in the upper lobes, may indicate mild chronic interstiti al changes. Within normal heart size, interstitial edema seems less likely. Mild atelectatic change s in the lung bases. Extensive coronary artery calcifications. TECHNICAL DOCUMENTATION: JOB ID: [id number] Quality ID # [id number]: Final reports with documentation of one or more dose reduction techniques (e.g., Au tomated exposure control, adjustment of the mA and/or kV according to patient size, use of iterative reconstruction technique) 2010 [employer]- All Rights Reserved Reading location - IP/workstation name: [email or web address]
[2019-12-20] MEDS: QUETIAPINE FUMARATE 100 MG TABLET PO SCH (21:35)
[2019-12-21] MEDS: NORMAL SALINE 1000 ML 1,000 ML IV PRN (00:30)
[2019-12-21] MEDS: METRONIDAZOLE 500 MG/NS RTU 500 MG/100 ML RTUPB IV SCH ×5 (00:58→23:52)
[2019-12-21 05:40] LABS: ALBUMIN 2.2 g/dL (3.5-5.0); ALKALINE PHOSPHATASE 70 U/L (38-126); ANION GAP 5 (5-19); ASPARTATE AMINO TRANSFERASE 24 U/L (14-36); BILIRUBIN,DIRECT 0.4 mg/dL (0.0-0.4); BILIRUBIN,TOTAL 0.6 mg/dL (0.2-1.3); BLOOD UREA NITROGEN 32 mg/dL (7-20); CALCIUM 7.9 mg/dL (8.4-10.2); CARBON DIOXIDE 18 mmol/L (22-30); CHLORIDE 111 mmol/L (98-107); GLUCOSE 89 mg/dL (75-110); POTASSIUM 4.2 mmol/L (3.6-5.0); TOTAL PROTEIN 4.6 g/dL (6.3-8.2)
[2019-12-21] MEDS: HEPARIN SOD (PORCINE) 5,000 UNIT/ML 1 ML VIAL SUBCUT SCH ×3 (06:21→22:26)
[2019-12-21] MEDS: LEVOTHYROXINE SODIUM 0.05 MG TABLET PO SCH (06:22)
[2019-12-21] MEDS ORDERED: NORMAL SALINE 1000 ML 1,000 ML IV ONE (07:45)
[2019-12-21 09:03] LABS: ABSOLUTE EOSINOPHILS # (AUTO) 0.1 10^3/uL (0.0-0.6); ABSOLUTE LYMPHOCYTES (AUTO) 0.9 10^3/uL (0.5-4.7); ABSOLUTE MONOCYTES (AUTO) 0.4 10^3/uL (0.1-1.4); ABSOLUTE NEUT (AUTO) 15.9 10^3/uL (1.7-8.2); BASOPHILS % (AUTO) 0.2 % (0-2); EOSINOPHILS % (AUTO) 0.4 % (0-6); HEMATOCRIT 24.9 % (36.0-47.0); LYMPHOCYTES % (AUTO) 5.1 % (13-45); MEAN CORPUSCULAR HEMOGLOBIN 30.9 pg (27.0-33.4); MEAN CORPUSCULAR VOLUME 88 fl (80-97); MONOCYTES % (AUTO) 2.3 % (3-13); PLATELET COUNT 302 10^3/uL (150-450); RED BLOOD COUNT 2.82 10^6/uL (3.72-5.28); RED CELL DISTRIBUTION WIDTH 15.5 % (11.5-14.0); TOTAL CELLS COUNTED % (AUTO) 100 %; WHITE BLOOD COUNT 17.3 10^3/uL (4.0-10.5)
[2019-12-21 09:24] LABS: HEMOGLOBIN 8.7 g/dL (12.0-15.5)
[2019-12-21] MEDS: PANTOPRAZOLE SODIUM 40 MG VIAL IV SCH ×2 (10:32→22:26)
[2019-12-21] MEDS: CHOLECALCIFEROL (D3) 1,000 UNIT (25 MCG) TABLET PO SCH (10:32)
[2019-12-21] MEDS: CEFEPIME HCL 2 GM in DEXTROSE 5%-WATER 50 ML IV SCH (10:32)
[2019-12-21] MEDS: MEGESTROL ACETATE SUSP 400 MG/10 ML UDCUP PO SCH (10:33)
[2019-12-21] MEDS ORDERED: LOPERAMIDE HCL 2 MG CAPSULE PO PRN (14:47)
--- NOTE | 2019-12-21 15:24 | PDOC PROGRESS REPORT ---
Subjective Progress Note for:: 12/21/19 Subjective:: Patient denies any shortness of breath today. She still feels very exhausted. She is still having some episodes of diarrhea. Denies any chest pain. Reason For Visit: DIARRHEA,ACUTE RESPIRATORY FAILURE WITH HYPOXIA Physical Exam Vital Signs: Temp Pulse Resp BP Pulse Ox 97.4 F 96 21 H 112/61 100 12/21/19 11:38 12/21/19 11:38 12/21/19 11:38 12/21/19 11:38 12/21/19 11:38 Intake & Output 12/20/19 12/21/19 12/22/19 06:59 06:59 06:59 Intake Total 4219 2451 100 Output Total 1025 Balance 4219 1426 100 Weight 68.1 kg 72.7 kg General appearance: PRESENT: no acute distress, cooperative, other - appears fatigued Neck exam: ABSENT: JVD Respiratory exam: PRESENT: clear to auscultation miguel, symmetrical, unlabored. ABSENT: tachypnea, wheezes Cardiovascular exam: PRESENT: RRR, +S1, +S2. ABSENT: tachycardia GI/Abdominal exam: PRESENT: soft, tenderness - diffuse. ABSENT: distended, firm, rebound, rigid Neurological exam: PRESENT: alert, awake Psychiatric exam: ABSENT: agitated, anxious Focused psych exam: ABSENT: pressured speech Skin exam: ABSENT: jaundice Results Laboratory Results: 12/21/19 08:10 12/21/19 05:02 12/20/19 12/21/19 12/21/19 17:06 05:02 05:02 WBC Cancelled RBC Cancelled Hgb Cancelled Hct Cancelled MCV Cancelled MCH Cancelled MCHC Cancelled RDW Cancelled Plt Count Cancelled Seg Neutrophils % Cancelled Sodium 133.7 L Potassium 4.2 Chloride 111 H Carbon Dioxide 18 L Anion Gap 5 BUN 32 H Creatinine 1.04 Est GFR ( Amer) > 60 Glucose 89 Lactic Acid 3.6 H Calcium 7.9 L Total Bilirubin 0.6 AST 24 Alkaline Phosphatase 70 Total Protein 4.6 L Albumin 2.2 L 12/21/19 12/21/19 05:02 08:10 WBC 17.3 H RBC 2.82 L Hgb 8.7 L D Hct 24.9 L MCV 88 MCH 30.9 MCHC 35.0 RDW 15.5 H Plt Count 302 Seg Neutrophils % 92.0 H Sodium Potassium Chloride Carbon Dioxide Anion Gap BUN Creatinine Est GFR ( Amer) Glucose Lactic Acid 1.7 Calcium Total Bilirubin AST Alkaline Phosphatase Total Protein Albumin 12/19/19 12/19/19 14:22 14:22 Creatine Kinase 38 CK-MB (CK-2) 0.72 Troponin I < 0.012 Impressions: Chest X-Ray 12/19/19 14:35 IMPRESSION: Probable chronic right upper lobe interstitial airspace disease. No evidence of an acute process. 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 Dependent atelectasis in the lower lobes. No acute finding in the abdomen or pelvis. Chest CT 12/20/19 00:00 IMPRESSION: Mild ground-glass opacification in the upper lobes, may indicate mild chronic interstitial changes. Within normal heart size, interstitial edema seems less likely. Mild atelectatic changes in the lung bases. Extensive coronary artery calcifications. Assessment and Plan - Diagnosis (1) Acute UTI (urinary tract infection) Is this a current diagnosis for this admission?: Yes Plan: Notably has grown Proteus and E. coli in the past. Urine culture is actually negative despite very positive urinalysis. However patient did notably get her first dose of cefepime several hours before the urine culture was obtained. Continue cefepime for now. Plan to de-escalate tomorrow to p.o. antibiotics. (2) Sepsis Qualifiers: Sepsis type: sepsis due to unspecified organism Sepsis acute organ dysfunction status: with acute organ dysfunction Severe sepsis acute organ dysfunction type: acute renal failure Acute renal failure type: unspecified Severe sepsis shock status: with septic shock Qualified Code(s): A41.9 - Sepsis, unspecified organism; R65.21 - Severe sepsis with septic shock; N17.9 - Acute kidney failure, unspecified Is this a current diagnosis for this admission?: Yes Plan: Sepsis has improved and at this point is likely resolved. Lactic acidosis is resolved. Abdominal CT without contrast was unrevealing but did show that appendix is surgically absent. Receiving cefepime for treatment of UTI. Receiving Flagyl for treatment of concern for possible colitis. Continue IV fluids (3) Lactic acidosis Is this a current diagnosis for this admission?: Yes Plan: Resolved (4) Diarrhea Qualifiers: Diarrhea type: presumed infectious Qualified Code(s): R19.7 - Diarrhea, unspecified Is this a current diagnosis for this admission?: Yes Plan: C. difficile was negative. COVID-19 test was negative. Dry abdominal CT was essentially unremarkable. Still possibly could have enterocolitis. Continue cefepime and Flagyl for now. Stool studies are pending. Imodium as needed (5) ANTONELLA (acute kidney injury) Is this a current diagnosis for this admission?: Yes Plan: Creatinine has improved at this point after receiving IV fluids. ANTONELLA likely secondary to dehydration and sepsis. We will continue to monitor BMP. (6) Hypotension Qualifiers: Hypotension type: unspecified hypotension type Qualified Code(s): I95.9 - H ypotension, unspecified Is this a current diagnosis for this admission?: Yes Plan: Mildly hypotensive this morning. Had to give 1 L normal saline bolus. Subsequent blood pressures have been adequate. (7) Atelectasis Is this a current diagnosis for this admission?: Yes Plan: Incentive spirometer (8) Interstitial lung disease Is this a current diagnosis for this admission?: Yes Plan: CT scan of the chest notes interstitial disease in the lungs bilaterally which are likely chronic. Does not seem to have much infiltration of the right upper lobe and certainly no cavitation. TB unlikely. COVID-19 negative. We will follow-up PPD and QuantiFERON gold test. (9) Dementia Qualifiers: Dementia type: Alzheimer's disease Alzheimer's disease onset: unspecified onset Dementia behavioral disturbance: without behavioral disturbance Qualified Code(s): G30.9 - Alzheimer's disease, unspecified; F02.80 - Dementia in other diseases classified elsewhere without behavioral disturbance Is this a current diagnosis for this admission?: Yes Plan: Patient will walk with physical therapy. Work on getting patient to eat better. We will give Ensure supplements. - Time Time Spent with patient: 15-24 minutes Anticipated Discharge Disposition: Intermediate Facility Anticipated Discharge Timeframe: within 48 hours
[2019-12-21] MEDS: QUETIAPINE FUMARATE 100 MG TABLET PO SCH (22:26)
[2019-12-22] MEDS: LEVOTHYROXINE SODIUM 0.05 MG TABLET PO SCH (05:54)
[2019-12-22] MEDS: HEPARIN SOD (PORCINE) 5,000 UNIT/ML 1 ML VIAL SUBCUT SCH ×3 (05:55→21:33)
[2019-12-22] MEDS: METRONIDAZOLE 500 MG/NS RTU 500 MG/100 ML RTUPB IV SCH ×4 (06:55→23:38)
[2019-12-22 07:00] LABS: ABSOLUTE EOSINOPHILS # (AUTO) 0.1 10^3/uL (0.0-0.6); ABSOLUTE LYMPHOCYTES (AUTO) 0.9 10^3/uL (0.5-4.7); ABSOLUTE MONOCYTES (AUTO) 0.3 10^3/uL (0.1-1.4); ABSOLUTE NEUT (AUTO) 11.6 10^3/uL (1.7-8.2); BASOPHILS % (AUTO) 0.2 % (0-2); EOSINOPHILS % (AUTO) 0.8 % (0-6); HEMATOCRIT 26.4 % (36.0-47.0); HEMOGLOBIN 8.9 g/dL (12.0-15.5); LYMPHOCYTES % (AUTO) 7.1 % (13-45); MEAN CORPUSCULAR HEMOGLOBIN 30.2 pg (27.0-33.4); MEAN CORPUSCULAR HGB CONC 33.9 g/dL (32.0-36.0); MEAN CORPUSCULAR VOLUME 89 fl (80-97); MONOCYTES % (AUTO) 2.5 % (3-13); PLATELET COUNT 302 10^3/uL (150-450); RED BLOOD COUNT 2.96 10^6/uL (3.72-5.28); RED CELL DISTRIBUTION WIDTH 15.4 % (11.5-14.0); SEGMENTED NEUTROPHILS % (AUTO) 89.4 % (42-78); TOTAL CELLS COUNTED % (AUTO) 100 %
[2019-12-22 07:20] LABS: ANION GAP 9 (5-19); BLOOD UREA NITROGEN 25 mg/dL (7-20); CALCIUM 8.3 mg/dL (8.4-10.2); CARBON DIOXIDE 12 mmol/L (22-30); CHLORIDE 116 mmol/L (98-107); POTASSIUM 3.7 mmol/L (3.6-5.0)
[2019-12-22 07:27] LABS: GLUCOSE 61 mg/dL (75-110)
[2019-12-22 08:40] LABS: ABSOLUTE RETICS # 0.026 10^6/uL (0.028-0.122); RETICULOCYTE COUNT (AUTO) 0.89 % (0.66-2.85)
[2019-12-22 08:43] LABS: IRON(TIBC) 24.6 ug/dL (37-170)
[2019-12-22] MEDS: PANTOPRAZOLE SODIUM 20 MG TABLET.DR PO SCH (08:51)
[2019-12-22] MEDS: CEFEPIME HCL 2 GM in DEXTROSE 5%-WATER 50 ML IV SCH (09:28)
[2019-12-22] MEDS: CHOLECALCIFEROL (D3) 1,000 UNIT (25 MCG) TABLET PO SCH (09:29)
[2019-12-22] MEDS: SODIUM BICARBONATE 650 MG TABLET PO SCH ×2 (09:29→17:22)
[2019-12-22 09:46] LABS: VENOUS BLOOD HCO3 13.1 mmol/L (20-32); VENOUS BLOOD PH 7.3 (7.30-7.42)
[2019-12-22 09:50] LABS: FOLATE 9.42 ng/mL (>2.76)
[2019-12-22] MEDS: MEGESTROL ACETATE SUSP 400 MG/10 ML UDCUP PO SCH (11:23)
--- NOTE | 2019-12-22 18:32 | PDOC PROGRESS REPORT ---
Subjective Progress Note for:: 12/22/19 Subjective:: Feels better today. Resting comfortably in bed. Plan to work with physical therapy. She states she is ready for the rectal tube tomorrow. Also output from the rectal tube has been much less. However still quite a bit of liquid stool in there. Reason For Visit: DIARRHEA,ACUTE RESPIRATORY FAILURE WITH HYPOXIA Physical Exam Vital Signs: Temp Pulse Resp BP Pulse Ox 98.4 F 93 20 135/73 H 98 12/22/19 15:39 12/22/19 15:39 12/22/19 15:39 12/22/19 15:39 12/22/19 15:39 Intake & Output 12/21/19 12/22/19 12/23/19 06:59 06:59 06:59 Intake Total 2451 1500 532 Output Total 1025 525 Balance 1426 975 532 Weight 72.7 kg 71.8 kg General appearance: PRESENT: no acute distress, cooperative Neck exam: ABSENT: JVD Respiratory exam: PRESENT: unlabored. ABSENT: accessory muscle use, tachypnea, wheezes Cardiovascular exam: PRESENT: RRR, +S1, +S2. ABSENT: tachycardia GI/Abdominal exam: PRESENT: soft, tenderness. ABSENT: distended, firm, guarding, rebound, rigid Neurological exam: PRESENT: alert, awake, oriented to person, other - conversational Psychiatric exam: ABSENT: agitated, anxious Focused psych exam: ABSENT: pressured speech Skin exam: ABSENT: jaundice Results Laboratory Results: 12/22/19 06:35 12/22/19 06:35 12/22/19 12/22/19 12/22/19 06:35 06:35 06:35 WBC 13.0 H RBC 2.96 L Hgb 8.9 L Hct 26.4 L MCV 89 MCH 30.2 MCHC 33.9 RDW 15.4 H Plt Count 302 Seg Neutrophils % 89.4 H Retic Count (auto) 0.89 VBG pH VBG pCO2 VBG HCO3 VBG Base Excess Sodium 137.1 Potassium 3.7 Chloride 116 H Carbon Dioxide 12 L Anion Gap 9 BUN 25 H Creatinine 0.98 Est GFR ( Amer) > 60 Glucose 61 L Calcium 8.3 L Iron TIBC % Saturation Ferritin Vitamin B12 Folate 12/22/19 12/22/19 06:35 09:20 WBC RBC Hgb Hct MCV MCH MCHC RDW Plt Count Seg Neutrophils % Retic Count (auto) VBG pH 7.30 VBG pCO2 27.0 L VBG HCO3 13.1 L VBG Base Excess -12.0 Sodium Potassium Chloride Carbon Dioxide Anion Gap BUN Creatinine Est GFR ( Amer) Glucose Calcium Iron 24.6 L TIBC 231 L % Saturation 11 Ferritin 401.00 H Vitamin B12 679.0 Folate 9.42 12/19/19 19:03 Stool - Stool - Final 12/19/19 19:03 Stool - Stool Stool Culture - Final NO SALMONELLA, SHIGELLA, CAMPYLOBACTER, OR E.COLI 0157 RECOVERED. NEGATIVE FOR SHIGA TOXINS 1&2. 12/19/19 21:14 Catheterized Urine Urine Culture - Final NO GROWTH 2 DAYS 12/19/19 12/19/19 14:22 14:22 Creatine Kinase 38 CK-MB (CK-2) 0.72 Troponin I < 0.012 Impressions: Chest X-Ray 12/19/19 14:35 IMPRESSION: Probable chronic right upper lobe interstitial airspace disease. No evidence of an acute process. 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 Dependent atelectasis in the lower lobes. No acute finding in the abdomen or pelvis. Chest CT 12/20/19 00:00 IMPRESSION: Mild ground-glass opacification in the upper lobes, may indicate mild chronic interstitial changes. Within normal heart size, interstitial edema seems less likely. Mild atelectatic changes in the lung bases. Extensive coronary artery calcifications. Assessment and Plan - Diagnosis (1) Acute UTI (urinary tract infection) Is this a current diagnosis for this admission?: Yes Plan: Notably has grown Proteus and E. coli in the past. Urine culture is actually negative despite very positive urinalysis. However patient did notably get her first dose of cefepime several hours before the urine culture was obtained. Continue cefepime for now. Plan to de-escalate tomorrow to p.o. antibiotics. (2) Sepsis Qualifiers: Sepsis type: sepsis due to unspecified organism Sepsis acute organ dysfunction status: with acute organ dysfunction Severe sepsis acute organ dysfunction type: acute renal failure Acute renal failure type: unspecified Severe sepsis shock status: with septic shock Qualified Code(s): A41.9 - Sepsis, unspecified organism; R65.21 - Severe sepsis with septic shock; N17.9 - Acute kidney failure, unspecified Is this a current diagnosis for this admission?: Yes Plan: resolved (3) Normal anion gap metabolic acidosis Is this a current diagnosis for this admission?: Yes Plan: Bicarb is down to 12 on chemistry today. Anion gap is normal. Obtain VBG which shows metabolic acidosis with bicarb of 13 and respiratory compensation. Goal is to decrease frequency of diarrhea and will supplement with oral sodium bicarbonate tablets. (4) Lactic acidosis Is this a current diagnosis for this admission?: Yes Plan: Resolved (5) Diarrhea Qualifiers: Diarrhea type: presumed infectious Qualified Code(s): R19.7 - Diarrhea, unspecified Is this a current diagnosis for this admission?: Yes Plan: C. difficile was negative. COVID-19 test was negative. Stool culture has resulted and is negative as well. Dry abdominal CT was essentially unremarkable. Still possibly could have enterocolitis. Continue cefepime and Flagyl for now. Imodium as needed (6) ANTONELLA (acute kidney injury) Is this a current diagnosis for this admission?: Yes Plan: Creatinine has improved at this point after receiving IV fluids. ANTONELLA likely secondary to dehydration and sepsis. We will continue to monitor BMP. (7) Hypotension Qualifiers: Hypotension type: unspecified hypotension type Qualified Code(s): I95.9 - Hypotension, unspecified Is this a current diagnosis for this admission?: Yes Plan: Resolved (8) Atelectasis Is this a current diagnosis for this admission?: Yes Plan: Incentive spirometer (9) Interstitial lung disease Is this a current diagnosis for this admission?: Yes Plan: CT scan of the chest notes interstitial disease in the lungs bilaterally which are likely chronic. Does not seem to have much infiltration of the right upper lobe and certainly no cavitation. TB unlikely. COVID-19 negative. We will follow-up PPD and QuantiFERON gold test. (10) Dementia Qualifiers: Dementia type: Alzheimer's disease Alzheimer's disease onset: unspecified onset Dementia behavioral disturbance: without behavioral disturbance Qualified Code(s): G30.9 - Alzheimer's disease, unspecified; F02.80 - Dementia in other diseases classified elsewhere without behavioral disturbance Is this a current diagnosis for this admission?: Yes Plan: Patient will work with physical therapy. Work on getting patient to eat better. We will give Ensure supplements. - Plan Summary Summary: Discussed plan of care with patient's son Yuniel - Time Time Spent with patient: Less than 15 minutes Anticipated Discharge Disposition: Group Home Facility Anticipated Discharge Timeframe: within 36 hours
[2019-12-22] MEDS ORDERED: QUETIAPINE FUMARATE 25 MG TABLET PO SCH (22:00)
[2019-12-23] MEDS: HEPARIN SOD (PORCINE) 5,000 UNIT/ML 1 ML VIAL SUBCUT SCH ×2 (05:07→15:51)
[2019-12-23] MEDS: METRONIDAZOLE 500 MG/NS RTU 500 MG/100 ML RTUPB IV SCH ×2 (05:07→12:20)
[2019-12-23] MEDS: PANTOPRAZOLE SODIUM 20 MG TABLET.DR PO SCH (05:07)
[2019-12-23] MEDS: LEVOTHYROXINE SODIUM 0.05 MG TABLET PO SCH (05:08)
[2019-12-23 07:12] LABS: ANION GAP 10 (5-19); BLOOD UREA NITROGEN 14 mg/dL (7-20); CALCIUM 8.1 mg/dL (8.4-10.2); CARBON DIOXIDE 15 mmol/L (22-30); CHLORIDE 112 mmol/L (98-107); GLUCOSE 81 mg/dL (75-110); POTASSIUM 3.1 mmol/L (3.6-5.0)
[2019-12-23] MEDS ORDERED: POTASSIUM CHLORIDE 10 MEQ TABLET.ER PO ONE (08:21)
[2019-12-23 08:29] LABS: HEMATOCRIT 27.3 % (36.0-47.0); HEMOGLOBIN 9.3 g/dL (12.0-15.5); MEAN CORPUSCULAR HEMOGLOBIN 30.2 pg (27.0-33.4); MEAN CORPUSCULAR HGB CONC 33.8 g/dL (32.0-36.0); MEAN CORPUSCULAR VOLUME 89 fl (80-97); PLATELET COUNT 331 10^3/uL (150-450); RED BLOOD COUNT 3.06 10^6/uL (3.72-5.28); RED CELL DISTRIBUTION WIDTH 15.8 % (11.5-14.0); WHITE BLOOD COUNT 7.7 10^3/uL (4.0-10.5)
[2019-12-23] MEDS ORDERED: LISINOPRIL 10 MG TABLET PO SCH (10:00)
[2019-12-23] MEDS: CHOLECALCIFEROL (D3) 1,000 UNIT (25 MCG) TABLET PO SCH (10:10)
[2019-12-23] MEDS: SODIUM BICARBONATE 650 MG TABLET PO SCH (10:10)
[2019-12-23] MEDS: POTASSI CL 20 MEQ/50 ML RIDER 20 MEQ/50 ML RTUPB IV SCH ×2 (10:11→12:20)
[2019-12-23] MEDS: CEFEPIME HCL 2 GM in DEXTROSE 5%-WATER 50 ML IV SCH (10:12)
[2019-12-23] MEDS: MEGESTROL ACETATE SUSP 400 MG/10 ML UDCUP PO SCH (10:17)
--- NOTE | 2019-12-23 13:10 | PDOC TRANSFER SUMMARY ---
Impression - Admit/DC Date/PCP Admission Date/Primary Care Provider: 12/19/19 20:03 LJ FITZPATRICK MD Discharge Date: 12/23/19 - Discharge Diagnosis (1) Acute UTI (urinary tract infection) Is this a current diagnosis for this admission?: Yes (2) Sepsis Is this a current diagnosis for this admission?: Yes (3) Diarrhea Is this a current diagnosis for this admission?: Yes (4) Enterocolitis Is this a current diagnosis for this admission?: Yes (5) Normal anion gap metabolic acidosis Is this a current diagnosis for this admission?: Yes (6) Lactic acidosis Is this a current diagnosis for this admission?: Yes (7) ANTONELLA (acute kidney injury) Is this a current diagnosis for this admission?: Yes (8) Hypotension Is this a current diagnosis for this admission?: Yes (9) Atelectasis Is this a current diagnosis for this admission?: Yes (10) Interstitial lung disease Is this a current diagnosis for this admission?: Yes (11) Dementia Is this a current diagnosis for this admission?: Yes - Assessment Summary: (1) Acute UTI (urinary tract infection) Is this a current diagnosis for this admission?: Yes Plan: Notably has grown pansensitive Proteus and E. coli in the past. On this admission, urine culture was actually negative despite very positive urinalysis. I suspect it was negative because patient received her first dose of cefepime several hours before the urine culture sample was actually collected. She has received cefepime for 4 days. I will discharge her with Augmentin for 2 more days. (2) Sepsis Qualifiers: Sepsis type: sepsis due to unspecified organism Sepsis acute organ dysfunction status: with acute organ dysfunction Severe sepsis acute organ dysfunction type: acute renal failure Acute renal failure type: unspecified Severe sepsis shock status: with septic shock Qualified Code(s): A41.9 - Sepsis, unspecified organism; R65.21 - Severe sepsis with septic shock; N17.9 - Acute kidney failure, unspecified Is this a current diagnosis for this admission?: Yes Plan: resolved (3) Normal anion gap metabolic acidosis Is this a current diagnosis for this admission?: Yes Plan: Secondary to bicarbonate loss from diarrhea. She did receive some oral bicarb supplements but diarrhea is resolving at this point. (4) Lactic acidosis Is this a current diagnosis for this admission?: Yes Plan: Secondary to sepsis. Resolved (5) Diarrhea Qualifiers: Diarrhea type: presumed infectious Qualified Code(s): R19.7 - Diarrhea, unspecified Is this a current diagnosis for this admission?: Yes Plan: C. difficile was negative. COVID-19 test was negative. Stool culture has resulted and is negative as well. Dry abdominal CT was essentially unremarkable. Still likely had Enterocolitis [viral versus bacterial.]. Received cefepime and Flagyl. No need for contin uation of Flagyl.. Imodium 2mg q6h as needed for diarrhea. Hold all laxatives for now. She received IV and oral potassium supplementation as mildly hypokalemic at 3.1 this morning. (6) ANTONELLA (acute kidney injury) Is this a current diagnosis for this admission?: Yes Plan: Creatinine was 1.58 on presentation secondary to sepsis and hypotension but has resolved with IV fluids. Last creatinine measured today 0.8. (7) Hypotension Qualifiers: Hypotension type: unspecified hypotension type Qualified Code(s): I95.9 - Hypotension, unspecified Is this a current diagnosis for this admission?: Yes Plan: Sepsis associated on admission and also likely contribution from poor oral intake. Currently resolved and blood pressure is actually now getting high so we will resume lisinopril 5 mg daily. Monitor blood pressure and vital signs closely. (8) Atelectasis Is this a current diagnosis for this admission?: Yes Plan: Incentive spirometer (9) Interstitial lung disease Is this a current diagnosis for this admission?: Yes Plan: CT scan of the chest notes interstitial disease in the lungs bilaterally which are likely chronic. Does not seem to have much infiltration of the right upper lobe and certainly no cavitation. TB unlikely. COVID-19 negative. PPD is negative. (10) Dementia Qualifiers: Dementia type: Alzheimer's disease Alzheimer's disease onset: unspecified onset Dementia behavioral disturbance: without behavioral disturbance Qualified Code(s): G30.9 - Alzheimer's disease, unspecified; F02.80 - Dementia in other diseases classified elsewhere without behavioral disturbance Is this a current diagnosis for this admission?: Yes Plan: Patient will work with physical therapy. Work on getting patient to eat better. We will give Ensure supplements. - Additional Information Resuscitation Status: Do Not Resuscitate Referrals: LJ FITZPATRICK MD [Primary Care Provider] - Follow up as needed Prescriptions: Amoxicillin 1 tab PO TID 2 Days #6 tab Home Medications: Cholecalciferol (Vitamin D3) [Vitamin D3 1000 Unit Tablet] 1,000 unit PO DAILY 02/11/19 Lanolin Alcohol/Mo/W.pet/[place] [Minerin Creme] 1 applic TP DAILY 02/11/19 Levothyroxine Sodium [Synthroid 0.05 mg Tablet] 50 mcg PO Q6AM 02/11/19 Lisinopril [Prinivil 10 mg Tablet] 5 mg PO DAILY 02/11/19 Omeprazole 20 mg PO Q6AM 02/11/19 Quetiapine Fumarate [Seroquel] 75 mg PO QHS 02/11/19 Tiotropium [place] [Spiriva Handihaler 5 Cap/Kit (18 Mcg/Cap)] 1 cap IH DAILY 02/11/19 Acetaminophen [Tylenol] 650 mg PO Q4HP PRN 12/19/19 Mag Hydrox/Al Hydrox/Simeth [Maalox Plus Susp 30 Udcup] 20 ml PO Q4HP PRN 12/19/19 Magnesium Hydroxide [Milk of Magnesia 30 ml Udcup] 30 ml PO HSP PRN 12/19/19 Megestrol Acetate [Megace Kelly 400 mg/10 ml Udcup] 10 ml PO DAILY 12/19/19 Ondansetron [Zofran Odt 4 mg Tablet] 4 mg PO Q6HP PRN 12/19/19 Quetiapine Fumarate [Seroquel 25 mg Tablet] 25 mg PO DAILY 12/19/19 Amoxicillin 1 tab PO TID 2 Days #6 tab 12/23/19 Loperamide HCl [Imodium 2 mg Capsule] 2 mg PO Q6HP PRN capsule 12/23/19 History of Present Illiness History of Present Illness: According to admitting provider: THEODORE ASKEW is a 79 year old female who presented to the emergency room from the residential via EMS with acute diarrhea. correction staff reported patient having copious diarrhea accompanied by vomiting and associated with tachycardia, hypotension and hypoxia. Patient has dementia and cannot contribute to her medical history. In the emergency room the patient was found to be tachycardic and hypoxic requiring supplemental oxygen to maintain an adequate O2 saturation and IV fluid resuscitation to improve her blood pressure and normalize her heart rate. She was noted to have continued copious watery diarrhea stools with a foul order. Her son was contacted by the emergency room provider and gave specific instructions that his mother was to be DNR/DNI/no pressors or surgery or heroic measures. Patient was subsequently admitted to the hospital for further evaluation treatment. Physical Exam Vital Signs: Temp Pulse Resp BP Pulse Ox 98.6 F 88 16 167/84 H 96 12/23/19 04:02 12/23/19 10:29 12/23/19 10:29 12/23/19 04:02 12/23/19 10:29 Intake & Output 12/22/19 12/23/19 12/24/19 06:59 06:59 06:59 Intake Total 1500 1898 150 Output Total 525 750 Balance 975 1148 150 Weight 71.8 kg 72.4 kg General appearance: PRESENT: no acute distress, cooperative Neck exam: ABSENT: JVD Respiratory exam: PRESENT: symmetrical, unlabored. ABSENT: tachypnea, wheezes Cardiovascular exam: PRESENT: +S1, +S2. ABSENT: tachycardia GI/Abdominal exam: PRESENT: soft, tenderness - minimal. ABSENT: distended, firm, guarding, hernia, rebound, rigid Neurological exam: PRESENT: alert, awake Results Laboratory Results: WBC 7.7 10^3/uL (4.0-10.5) 12/23/19 05:43 RBC 3.06 10^6/uL (3.72-5.28) L 12/23/19 05:43 Hgb 9.3 g/dL (12.0-15.5) L 12/23/19 05:43 Hct 27.3 % (36.0-47.0) L 12/23/19 05:43 MCV 89 fl (80-97) 12/23/19 05:43 MCH 30.2 pg (27.0-33.4) 12/23/19 05:43 MCHC 33.8 g/dL (32.0-36.0) 12/23/19 05:43 RDW 15.8 % (11.5-14.0) H 12/23/19 05:43 Plt Count 331 10^3/uL (150-450) 12/23/19 05:43 Lymph % (Auto) 7.1 % (13-45) L 12/22/19 06:35 Lynn % (Auto) 2.5 % (3-13) L 12/22/19 06:35 Eos % (Auto) 0.8 % (0-6) 12/22/19 06:35 Baso % (Auto) 0.2 % (0-2) 12/22/19 06:35 Reticulocyte # 0.026 10^6/uL (0.028-0.122) L 12/22/19 06:35 Absolute Neuts (auto) 11.6 10^3/uL (1.7-8.2) H 12/22/19 06:35 Absolute Lymphs (auto) 0.9 10^3/uL (0.5-4.7) 12/22/19 06:35 Absolute Monos (auto) 0.3 10^3/uL (0.1-1.4) 12/22/19 06:35 Absolute Eos (auto) 0.1 10^3/uL (0.0-0.6) 12/22/19 06:35 Absolute Basos (auto) 0.0 10^3/uL (0.0-0.2) 12/22/19 06:35 Total Counted 100 12/19/19 14:22 Seg Neutrophils % 89.4 % (42-78) H 12/22/19 06:35 Seg Neuts % (Manual) 86 % (42-78) H 12/19/19 14:22 Band Neutrophils % 4 % (3-5) 12/19/19 14:22 Lymphocytes % (Manual) 7 % (13-45) L 12/19/19 14:22 Atypical Lymphs % 2 % (0) 12/19/19 14:22 Monocytes % (Manual) 0 % (3-13) L 12/19/19 14:22 Eosinophils % (Manual) 0 % (0-6) 12/19/19 14:22 Basophils % (Manual) 1 % (0-2) 12/19/19 14:22 Abs Neuts (Manual) 25.9 10^3/uL (1.7-8.2) H 12/19/19 14:22 Abs Lymphs (Manual) 2.6 10^3/uL (0.5-4.7) 12/19/19 14:22 Abs Monocytes (Manual) 0.0 10^3/uL (0.1-1.4) L 12/19/19 14:22 Absolute Eos (Manual) 0.0 10^3/uL (0.0-0.6) 12/19/19 14:22 Abs Basophils (Manual) 0.3 10^3/uL (0.0-0.2) H 12/19/19 14:22 Platelet Estimate Cancelled 12/21/19 05:02 Clumped Platelets PRESENT 12/19/19 14:22 Platelet Comment INCREASED 12/19/19 14:22 Anisocytosis SLIGHT 12/19/19 14:22 Retic Count (auto) 0.89 % (0.66-2.85) 12/22/19 06:35 VBG pH 7.30 (7.30-7.42) 12/22/19 09:20 VBG pCO2 27.0 mmHg (35-63) L 12/22/19 09:20 VBG HCO3 13.1 mmol/L (20-32) L 12/22/19 09:20 VBG Base Excess -12.0 mmol/L 12/22/19 09:20 Sodium 136.5 mmol/L (137-145) L 12/23/19 05:43 Potassium 3.1 mmol/L (3.6-5.0) L 12/23/19 05:43 Chloride 112 mmol/L (98-107) H 12/23/19 05:43 Carbon Dioxide 15 mmol/L (22-30) L 12/23/19 05:43 Anion Gap 10 (5-19) 12/23/19 05:43 BUN 14 mg/dL (7-20) 12/23/19 05:43 Creatinine 0.81 mg/dL (0.52-1.25) 12/23/19 05:43 Est GFR ( Amer) > 60 (>60) 12/23/19 05:43 Est GFR (MDRD) Non-Af > 60 (>60) 12/23/19 05:43 Glucose 81 mg/dL (75-110) 12/23/19 05:43 POC Glucose 81 mg/dL (70-110) 12/22/19 08:30 Lactic Acid 1.7 mmol/L (0.7-2.1) 12/21/19 05:02 Calcium 8.1 mg/dL (8.4-10.2) L 12/23/19 05:43 Magnesium 1.7 mg/dL (1.6-2.3) 12/23/19 05:43 Iron 24.6 ug/dL (37-170) L 12/22/19 06:35 TIBC 231 ug/dL (250-450) L 12/22/19 06:35 % Saturation 11 % 12/22/19 06:35 Ferritin 401.00 ng/mL (11.1-264.0) H 12/22/19 06:35 Total Bilirubin 0.6 mg/dL (0.2-1.3) 12/21/19 05:02 Direct Bilirubin 0.4 mg/dL (0.0-0.4) 12/21/19 05:02 Neonat Total Bilirubin Not Reportable 12/21/19 05:02 Neonat Direct Bilirubin Not Reportable 12/21/19 05:02 Neonat Indirect Bili Not Reportable 12/21/19 05:02 AST 24 U/L (14-36) 12/21/19 05:02 ALT 12 U/L (<35) 12/21/19 05:02 Alkaline Phosphatase 70 U/L (38-126) 12/21/19 05:02 Creatine Kinase 38 U/L (30-135) 12/19/19 14:22 CK-MB (CK-2) 0.72 ng/mL (<4.55) 12/19/19 14:22 Troponin I < 0.012 ng/mL 12/19/19 14:22 Total Protein 4.6 g/dL (6.3-8.2) L 12/21/19 05:02 Albumin 2.2 g/dL (3.5-5.0) L 12/21/19 05:02 Vitamin B12 679.0 pg/mL (239-931) 12/22/19 06:35 Folate 9.42 ng/mL (>2.76) 12/22/19 06:35 TSH 3.70 uIU/mL (0.47-4.68) 12/20/19 05:47 Urine Color GIANCARLO 12/19/19 21:14 Urine Appearance CLOUDY 12/19/19 21:14 Urine pH 5.0 (5.0-9.0) 12/19/19 21:14 Ur Specific [place] 1.020 12/19/19 21:14 Urine Protein 100 mg/dL (NEGATIVE) H 12/19/19 21:14 Urine Glucose (UA) NEGATIVE mg/dL (NEGATIVE) 12/19/19 21:14 Urine Ketones TRACE mg/dL (NEGATIVE) H 12/19/19 21:14 Urine Blood SMALL (NEGATIVE) H 12/19/19 21:14 Urine Nitrite NEGATIVE (NEGATIVE) 12/19/19 21:14 Urine Bilirubin SMALL (NEGATIVE) H 12/19/19 21:14 Urine Urobilinogen 4.0 mg/dL (<2.0) H 12/19/19 21:14 Ur Leukocyte Esterase MODERATE (NEGATIVE) H 12/19/19 21:14 Urine WBC (Auto) >182 /HPF 12/19/19 21:14 Urine RBC (Auto) 22 /HPF 12/19/19 21:14 Urine WBC Clumps MANY /HPF 12/19/19 21:14 Squamous Epi Cells Auto 7 /HPF 12/19/19 21:14 Urine Mucus (Auto) RARE /LPF 12/19/19 21:14 Urine Ascorbic Acid NEGATIVE (NEGATIVE) 12/19/19 21:14 Stl C. Difficile GDH Ag NEGATIVE (NEGATIVE) 12/19/19 19:03 Stl C.difficile Tox A&B NEGATIVE (NEGATIVE) 12/19/19 19:03 COVID-19 Source See comment 12/19/19 18:43 COVID-19 (KRISTEL) Not Detected (Not Detect) 12/19/19 18:43 Slides for Path Review Cancelled 12/21/19 05:02 12/19/19 14:22 CK-MB (CK-2) 0.72 Troponin I < 0.012 Impressions: Chest X-Ray 12/19/19 14:35 IMPRESSION: Probable chronic right upper lobe interstitial airspace disease. No evidence of an acute process. 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 Dependent atelectasis in the lower lobes. No acute finding in the abdomen or pelvis. Chest CT 12/20/19 00:00 IMPRESSION: Mild ground-glass opacification in the upper lobes, may indicate mild chronic interstitial changes. Within normal heart size, interstitial edema seems less likely. Mild atelectatic changes in the lung bases. Extensive coronary artery calcifications. Plan Time Spent: Greater than 30 Minutes Stroke Is this a Stroke Patient?: No Acute Heart Failure Is this a Heart Failure Patient?: No
[2019-12-23 14:10] VITALS: BP 168/81
[2019-12-23] MEDS: QUETIAPINE FUMARATE 25 MG TABLET PO SCH (15:53)
== END 2019-12-23 18:49 | DRG 871 ==
LOC: ER 13:39 → EH 20:03 → 3W 12-20 00:31 → 3S 12-21 18:50
PROVIDERS: ADMIT Emergency Medicine; ATTEND Internal Medicine
DX: A41.9 Sepsis, unspecified organism (principal); R65.21 Severe sepsis with septic shock; N39.0 Urinary tract infection, site not specified; E87.2 Acidosis; N17.9 Acute kidney failure, unspecified; J84.9 Interstitial pulmonary disease, unspecified; J98.11 Atelectasis; I95.9 Hypotension, unspecified; F02.80 Dementia in other diseases classified elsewhere, unspecified severity, without behavioral disturbance, psychotic disturbance, mood disturbance, and anxiety; G30.9 Alzheimer's disease, unspecified; R19.7 Diarrhea, unspecified; K52.9 Noninfective gastroenteritis and colitis, unspecified; Z11.59 Encounter for screening for other viral diseases; Z66 Do not resuscitate; R09.02 Hypoxemia; I25.10 Atherosclerotic heart disease of native coronary artery without angina pectoris; E78.5 Hyperlipidemia, unspecified; I10 Essential (primary) hypertension; E03.9 Hypothyroidism, unspecified; F32.9 Major depressive disorder, single episode, unspecified; D64.9 Anemia, unspecified; Z79.899 Other long term (current) drug therapy; Z87.440 Personal history of urinary (tract) infections; Z85.3 Personal history of malignant neoplasm of breast; Z86.010 Personal history of colon polyps; Z87.11 Personal history of peptic ulcer disease; Z95.5 Presence of coronary angioplasty implant and graft; Z90.11 Acquired absence of right breast and nipple; Z87.891 Personal history of nicotine dependence; Z82.49 Family history of ischemic heart disease and other diseases of the circulatory system; Z80.9 Family history of malignant neoplasm, unspecified; Z83.42 Family history of familial hypercholesterolemia
CPT/HCPCS: 36415; 71045; 71250; 74176; 80048; 80053; 81001; 82550; 82553; 82607; 82728; 82746; 82803; 82962; 83540; 83550; 83605; 83735; 84443; 84484; 85025; 85027; 85045; 86480; 87040; 87045; 87086; 87177; 87205; 87324; 87449; 87635; 93005; 93010; 94799; 96361; 96365; 96366; 96367; 96375; 99285; C9113; C9803; J0692; J1644; J2060; J3370; J3480; J3490; J7030; J7042; J7060

== ENCOUNTER 2019-12-31 11:22 | Emergency (ER) | payer MEDICARE, MEDICAID ==
--- NOTE | 2019-12-31 11:57 | ER Document Report ---
ED General - General TRAVEL OUTSIDE OF THE [place] IN LAST 30 DAYS: No <ADAIR JAUREGUI A - Last Filed: 12/31/19 19:51> <YANN PAULA - Last Filed: 01/01/20 00:22> - General Stated Complaint: WEAKNESS Time Seen by Provider: 12/31/19 11:57 Primary Care Provider: LJ FITZPATRICK MD [Primary Care Provider] - 01/02/20 - HPI Notes: 79-year-old female with a history of dementia presents to the emergency room from [facility] for a elevated d-dimer that they did at the detention and they would like a chest scan to rule out a pulmonary embolism. Denies f bertha, chills, chest pain,palpitations, shortness of breath, dyspnea, nausea, vomiting, diarrhea, abdominal pain, hematuria,blurred vision, double vision, loss of vision, speech changes, LH, dizziness, syncope, headaches, wheezing, URI, neck pain, weakness, bowel or bladder dysfunction, saddle anesthesia, numbness or tingling in bilateral upper or lower extremities equally, muscle paralysis, weakness in bilateral upper or lower extremities equally or rash. MEDICATIONS: I agree with the patient medications as charted by the RN. ALLERGIES: I agree with the allergies as charted by the RN. PAST MEDICAL HISTORY/PAST SURGICAL HISTORY: Reviewed and agree as charted by RN. SOCIAL HISTORY: Reviewed and agree as charted by RN. FAMILY HISTORY: No significant familial comorbid conditions directly related to patient complaint PHYSICAL EXAMINATION: GENERAL: Well-appearing, well-nourished and in no acute distress. HEAD: Atraumatic, normocephalic. EYES: Pupils equal round and reactive to light, extraocular movements intact, conjunctiva are normal. ENT: Nares patent, oropharynx clear without exudates. Moist mucous membranes. NECK: Normal range of motion, supple without lymphadenopathy LUNGS: Breath sounds clear to auscultation bilaterally and equal. No wheezes rales or rhonchi. HEART: Regular rate and rhythm without murmurs ABDOMEN: Soft, nontender, nondistended abdomen. No guarding, no rebound. No masses appreciated. Female : Macular rash with satellite lesions around the genital area. No wounds or drainage. Musculoskeletal: Normal range of motion, no pitting or edema. No cyanosis. NEUROLOGICAL: Cranial nerves grossly intact. Normal speech, normal gait. Nor mal sensory, motor exams PSYCH: Normal mood, normal affect. SKIN: Warm, Dry, normal turgor, no rashes or lesions noted. Dictation was performed using [employer] voice recognition software (ADAIR JAUREGUI) - Related Data Allergies/Adverse Reactions: No Known Allergies Allergy (Verified 12/31/19 11:56) Past Medical History - General Information source: Patient - Social History Smoking Status: Unknown if Ever Smoked Family History: CVA, Hyperlipidemia, Hypertension, Malignancy, Thyroid Disfunc tion - Past Medical History Cardiac Medical History: Reports: Hx Coronary Artery Disease, Hx Hypercholesterolemia, Hx Hypertension Denies: Hx Atrial Fibrillation, Hx Congestive Heart Failure, Hx Heart Attack Pulmonary Medical History: Reports: Hx Intubation, Hx Respiratory Failure Denies: Hx Asthma, Hx Bronchitis, Hx COPD, Hx Pneumonia, Hx Tuberculosis Neurological Medical History: Denies: Hx Seizures Endocrine Medical History: Reports: Hx Hypothyroidism. Denies: Hx Diabetes Anabel litus Type 1, Hx Hyperthyroidism Renal/ Medical History: Denies: Hx Peritoneal Dialysis Malignancy Medical History: Reports: Hx Breast Cancer GI Medical History: Reports: Hx Gastroesophageal Reflux Disease. Denies: Hx Cirrhosis, Hx Hepatitis, Hx Hiatal Hernia, Hx Ulcer Musculoskeletal Medical History: Denies Hx Arthritis, Denies Hx Fibromyalgia, Denies Hx Systemic Lupus Erythematosus Skin Medical History: Denies Hx Eczema, Denies Hx Psoriasis Psychiatric Medical History: Reports: Hx Anxiety, Hx Dementia, Hx Depression Denies: Hx Bipolar Disorder, Hx Schizophrenia Traumatic Medical History: Reports: Hx Traumatic Brain Injury - Fell and hit her head last week Infectious Medical History: Denies: Hx Hepatitis Past Surgical History: Reports: Hx Cardiac Catheterization, Hx Cardiac Surgery - stents, Hx Cholecystectomy, Hx Coronary Stent, Hx Mastectomy - Right, Hx Or thopedic Surgery - Left hip fracture repair, Other - Colonoscopy, EGD. Denies: Hx Appendectomy, Hx Bowel Surgery, Hx Section, Hx Hysterectomy, Hx Tonsillectomy, Hx Tubal Ligation - Immunizations Immunizations up to date: Yes Hx Diphtheria, Pertussis, Tetanus Vaccination: Yes Hx Pneumococcal Vaccination: 03/30/11 <ADAIR JAUREGUI - Last Filed: 12/31/19 19:51> Review of Systems - Review of Systems Constitutional: See HPI <ADAIR JAUREGUI - Last Filed: 12/31/19 19:51> Physical Exam - Vital signs Vitals: Resp Pulse Ox 22 H 99 12/31/19 11:30 12/31/19 11:30 Course - Laboratory Result Diagrams: 12/31/19 15:53 12/31/19 15:53 <JUVENTINOETTAADAIR A - Last Filed: 12/31/19 19:51> - Laboratory Result Diagrams: 12/31/19 15:53 12/31/19 15:53 <YANN PAULA - Last Filed: 01/01/20 00:22> - Re-evaluation Re-evalutation: 12/31/19 19:52 Afebrile, slightly tachycardic by stable. Delay in lab work due to getting a IV, patient then pulled out her IV, lab canceled the labs that were obtained. Another IV was placed to get a CTA due to patient having a positive d-dimer outpatient. low CBC shows a leukocytosis of 12.8, CMP negative for hepatic or renal dysfunction, no electrolyte disturbances. Urinalysis unremarkable. Troponin negative. EKG non-STEMI, normal sinus rhythm, heart rate 99, P axis 23, QRS -11, T [place] 31. A IV was placed but due to it being above the AC, CT would not do a CTA, opted for a VQ scan which was not performed until 153 and not read until 193. the VQ scan showed a subsegmental perfusion defect within the left lower lobe but they states possibly due to scarring when correlated with a CT however follow-up with a checks x-ray is recommended. Will obtain chest x-ray. Due to patient being incontinent, she does have a diaper rash, will treat with nystatin while she is here. (ADAIR JAUREGUI) 12/31/19 22:54 CT of the chest shows emphysema and pulmonary thinking, along with coronary artery calcification. There is no pulmonary emboli noted based off the radiology read. No aortic dissection. Patient is still tachycardic. We will give the patient 500 mL's of saline. Will reassess heart rate. If heart rate is acceptable and below 100, will discharge patient back to [place] [facility]. 01/01/20 00:19 Patient's heart rate has improved with 500 mL's of normal saline. Heart rate is currently 95. At this time, patient will be discharged back to [facility]. Patient will follow-up with her primary care provider at the detention. Follow-up precautions were given. Verbal discharge instructions were given to the patient. They verbalized understanding. They are stable for discharge. (YANN PAULA) - Vital Signs Vital signs: Temp Pulse Resp BP Pulse Ox 98 F 19 146/96 H 96 12/31/19 11:56 12/31/19 16:01 12/31/19 16:01 12/31/19 16:01 - Laboratory Laboratory results interpreted by me: 12/31/19 12/31/19 12/31/19 15:53 15:53 18:30 WBC 12.8 H RBC 3.52 L Hgb 10.8 L Hct 31.3 L RDW 16.4 H Plt Count 683 H Absolute Neuts (auto) 9.7 H Sodium 134.3 L Albumin 3.3 L Urine Urobilinogen 4.0 H Discharge <ADAIR JAUREGUI - Last Filed: 12/31/19 19:51> <YANN PAULA - Last Filed: 01/01/20 00:22> - Discharge Clinical Impression: Elevated d-dimer, Suspected COVID-19 virus infection Condition: Stable Disposition: HOME, SELF-CARE Instructions: COVID-19 Guidance for Persons Under Investigation Additional Instructions: You were seen today in the emergency department for your d-dimer lab being elevated. At this time, your work-up is normal. Please follow-up with the doctor at the detention. Please stay in quarantine, as you are being tested for COVID-19. Referrals: LJ FITZPATRICK MD [Primary Care Provider] - 01/02/20
[2019-12-31 16:03] LABS: ABSOLUTE BASOPHILS # (AUTO) 0.2 10^3/uL (0.0-0.2); ABSOLUTE EOSINOPHILS # (AUTO) 0.1 10^3/uL (0.0-0.6); ABSOLUTE LYMPHOCYTES (AUTO) 2.3 10^3/uL (0.5-4.7); ABSOLUTE MONOCYTES (AUTO) 0.5 10^3/uL (0.1-1.4); ABSOLUTE NEUT (AUTO) 9.7 10^3/uL (1.7-8.2); BASOPHILS % (AUTO) 1.3 % (0-2); EOSINOPHILS % (AUTO) 0.8 % (0-6); HEMATOCRIT 31.3 % (36.0-47.0); HEMOGLOBIN 10.8 g/dL (12.0-15.5); LYMPHOCYTES % (AUTO) 17.7 % (13-45); MEAN CORPUSCULAR HEMOGLOBIN 30.6 pg (27.0-33.4); MEAN CORPUSCULAR HGB CONC 34.3 g/dL (32.0-36.0); MEAN CORPUSCULAR VOLUME 89 fl (80-97); MONOCYTES % (AUTO) 3.9 % (3-13); PLATELET COUNT 683 10^3/uL (150-450); RED BLOOD COUNT 3.52 10^6/uL (3.72-5.28); RED CELL DISTRIBUTION WIDTH 16.4 % (11.5-14.0); SEGMENTED NEUTROPHILS % (AUTO) 76.3 % (42-78); TOTAL CELLS COUNTED % (AUTO) 100 %; WHITE BLOOD COUNT 12.8 10^3/uL (4.0-10.5)
[2019-12-31 16:24] LABS: ALBUMIN 3.3 g/dL (3.5-5.0); ALKALINE PHOSPHATASE 67 U/L (38-126); ANION GAP 8 (5-19); ASPARTATE AMINO TRANSFERASE 21 U/L (14-36); BILIRUBIN,DIRECT 0.4 mg/dL (0.0-0.4); BILIRUBIN,TOTAL 0.9 mg/dL (0.2-1.3); BLOOD UREA NITROGEN 14 mg/dL (7-20); CALCIUM 9.2 mg/dL (8.4-10.2); CARBON DIOXIDE 26 mmol/L (22-30); CHLORIDE 100 mmol/L (98-107); GLUCOSE 95 mg/dL (75-110); POTASSIUM 4.2 mmol/L (3.6-5.0); TOTAL PROTEIN 6.8 g/dL (6.3-8.2)
[2019-12-31] MEDS ORDERED: NYSTATIN CREAM 15 GM TP ONE (18:51)
[2019-12-31 18:52] LABS: APPEARANCE,URINE CLEAR; BILIRUBIN,URINE NEGATIVE (NEGATIVE); COLOR,URINE YELLOW; GLUCOSE, URINE NEGATIVE (NEGATIVE); KETONES,URINE NEGATIVE (NEGATIVE); LEUKOCYTE ESTERASE,URINE NEGATIVE (NEGATIVE); NITRITE,URINE NEGATIVE (NEGATIVE); PROTEIN,URINE NEGATIVE (NEGATIVE); URINE SPECIFIC GRAVITY 1.016
--- NOTE | 2019-12-31 19:49 | RADIOLOGY REPORT (SQ) ---
EXAM DESCRIPTION: NM LUNG PERFUSION COMPLETED DATE/TME: 12/31/2019 17:04 CLINICAL HISTORY: 79 years, Female, positive D dimer COMPARISON: Examination is correlated with a chest CT from December 20, 2019. I have no more recent comparison studies. RADIONUCLIDE AND DOSE: 5.4 mCi technetium 99m MAA intravenously. ADDITIONAL DRUGS AND DOSES: None TECHNIQUE: Multiplanar perfusion images were obtained. LIMITATIONS: None. FINDINGS: There is a small perfusion defect within the posterior basal left lower lobe, possibly due to scarring when correlated with CT, however correlation with a current chest x-ray is recommended. There is no perfusion defect identified on the right. IMPRESSION: Small subsegmental perfusion defect within the left lower lobe, possibly due to scarring when correlated with CT, however follow-up chest x-ray is recommended. copyright 2010 [employer]- All Rights Reserved
--- NOTE | 2019-12-31 20:43 | RADIOLOGY REPORT (SQ) ---
EXAM DESCRIPTION: XR CHEST 1 VIEW COMPLETED DATE/TME: 12/31/2019 19:57 CLINICAL HISTORY: 79 years Female scarring seen on V/Q scan COMPARISON: 12/19/2019. FINDINGS: The cardiomediastinal silhouette appears unremarkable. No consolidating infiltrates or pleural effusions. No pneumothorax. Calcified tortuous aorta. Elevation the right hemidiaphragm. Examination is unchanged from the previous. IMPRESSION: No acute abnormality is identified.
--- NOTE | 2019-12-31 21:01 | EKG REPORT ---
SEVERITY:- ABNORMAL ECG - SINUS RHYTHM LEFT VENTRICULAR HYPERTROPHY : Confirmed by: Waylon Bragg MD 31-Dec-2019 21:00:58
--- NOTE | 2019-12-31 22:41 | RADIOLOGY REPORT (SQ) ---
EXAM DESCRIPTION: CTA chest with contrast CLINICAL HISTORY: 79 years Female, COMPARISON: None. TECHNIQUE: Axial images of the chest were performed utilizing intravenous contrast, with sagittal and coronal MIP images and sagittal and coronal reformatted images. This exam was performed according to our departmental dose-optimization program which includes use of Automated Exposure Control, adjustment of the mA and/or kV according to patient size and/or use of iterative reconstruction technique. FINDINGS: There is emphysema and interstitial pulmonary thickening. No evidence of pulmonary consolidation. There is extensive coronary artery calcification. No evidence of pulmonary embolus. No evidence of aortic dissection. IMPRESSION: Emphysema and interstitial pulmonary thickening. Extensive coronary artery calcification.
[2019-12-31] MEDS ORDERED: NORMAL SALINE 500 ML IV ONE (22:53)
[2020-01-01 00:40] VITALS: BP 174/114
== END 2020-01-01 01:13 | disposition home or self-care (01) ==
LOC: ER 11:22
DX: R79.89 Other specified abnormal findings of blood chemistry (principal); Z20.828 Contact with and (suspected) exposure to other viral communicable diseases; R53.1 Weakness; F03.90 Unspecified dementia, unspecified severity, without behavioral disturbance, psychotic disturbance, mood disturbance, and anxiety; I25.10 Atherosclerotic heart disease of native coronary artery without angina pectoris; E78.00 Pure hypercholesterolemia, unspecified; I10 Essential (primary) hypertension
CPT/HCPCS: 93005; 99285; 96360; 51701; 36415; 85025; 80053; 81001; 84484; 71045; 78580; 71275; 93010; U0003; A9540; A9270; J7040; Q9969; C9803; 87635; J3490